=== PATIENT | male | born 1960 | race Caucasian/White ===

== ENCOUNTER 2024-03-08 11:59 | Outpatient (REF) | payer MEDICAID, SELFPAY ==
[2024-03-08 14:10] LABS: MANUAL DIFF FLAG NO
[2024-03-08 14:14] LABS: Basophils Absolute Auto 0.1 X10*3/uL (0.0-0.2); Basophils Percent Auto 0.9 % (0-2); Eosinophils Absolute Auto 0.1 X10*3/uL (0.0-0.4); Eosinophils Percent Auto 1.2 % (0-4); Hematocrit 46.2 % (42.0-52.0); Hemoglobin 16.4 g/dl (14.0-18.0); Imm Gran Abs Auto 0.02 X10*3/uL (0.00-0.03); Imm Gran Pct Auto 0.2 % (0.0-0.4); Lymphocytes Absolute Auto 3.4 X10*3/uL (1.2-4.9); Lymphocytes Percent Auto 35.1 % (20-40); Mean Corpuscular HGB Conc 35.5 g/dl (31.0-36.0); Mean Corpuscular Hemoglobin 33.4 pg (27.0-33.0); Mean Corpuscular Volume 94.1 fL (80.0-98.0); Mean Platelet Volume 10.4 fL (9.4-12.4); Monocytes Absolute Auto 0.8 X10*3/uL (0.1-1.2); Monocytes Percent Auto 8.4 % (2-11); Neutrophils Absolute Auto 5.2 x10*3/uL (2.0-8.3); Neutrophils Percent Auto 54.2 % (45-73); Platelet Count 257 X10*3/uL (160-400); Red Blood Count 4.91 X10*6/uL (4.60-5.80); Red Cell Distribution Width 12.7 % (11.0-16.0); White Blood Count 9.6 X10*3/uL (4.8-10.8)
[2024-03-08 14:29] LABS: Alanine Aminotransferase 45 U/L (0-40); Albumin Level 4.3 g/dL (3.5-5.0); Alkaline Phosphatase 80 U/L (39-117); Anion Gap 14 (12-20); Aspartate Amino Transferase 31 U/L (5-37); Bilirubin Total 0.7 mg/dL (0.0-1.0); Blood Urea Nitrogen 9 mg/dL (9-16); Calcium 9.5 mg/dL (8.4-10.2); Carbon Dioxide 27 mmol/L (22-29); Chloride 103 mmol/L (96-108); Estimated Glomerular Filt Rate > 60; Glucose Random 114 mg/dL (60-115); Iron 118 mcg/dL (45-160); Percent Iron Saturation 33 % (15-50); Sodium 140 mmol/L (135-145); Total Iron Binding Capacity 358 mcg/dL (228-428); Total Protein 7.4 g/dL (6.5-8.0); Unsaturated Iron Binding 240 ug/dL
[2024-03-08 15:04] LABS: Folate 9.6 ng/mL (> or = 4.0); Vitamin B12 252 pg/mL (200-900)
== END 2024-03-08 12:00 | disposition home or self-care (01) ==
LOC: HO.CHCLDS 11:59
PROVIDERS: Visit Provider Internal Medicine
DX: I10 Essential (primary) hypertension (principal)
CPT/HCPCS: 36415; 80053; 82607; 82746; 83540; 83735; 84100; 85025

== ENCOUNTER 2024-08-05 11:34 | Outpatient (REF) | payer MEDICAID, SELFPAY ==
[2024-08-05 14:00] LABS: MANUAL DIFF FLAG NO
[2024-08-05 14:12] LABS: Basophils Absolute Auto 0.1 X10*3/uL (0.0-0.2); Basophils Percent Auto 0.8 % (0-2); Eosinophils Absolute Auto 0.1 X10*3/uL (0.0-0.4); Hematocrit 45.9 % (42.0-52.0); Hemoglobin 15.7 g/dl (14.0-18.0); Imm Gran Abs Auto 0.04 X10*3/uL (0.00-0.03); Imm Gran Pct Auto 0.5 % (0.0-0.4); Lymphocytes Absolute Auto 2.5 X10*3/uL (1.2-4.9); Lymphocytes Percent Auto 28.7 % (20-40); Mean Corpuscular HGB Conc 34.2 g/dl (31.0-36.0); Mean Corpuscular Hemoglobin 31.6 pg (27.0-33.0); Mean Corpuscular Volume 92.4 fL (80.0-98.0); Mean Platelet Volume 10.2 fL (9.4-12.4); Monocytes Absolute Auto 0.7 X10*3/uL (0.1-1.2); Monocytes Percent Auto 7.5 % (2-11); Neutrophils Absolute Auto 5.4 x10*3/uL (2.0-8.3); Neutrophils Percent Auto 61.5 % (45-73); Platelet Count 275 X10*3/uL (160-400); Red Blood Count 4.97 X10*6/uL (4.60-5.80); Red Cell Distribution Width 13.4 % (11.0-16.0); White Blood Count 8.8 X10*3/uL (4.8-10.8)
[2024-08-05 14:21] LABS: Cholesterol 225 mg/dL (<200); HDL Cholesterol 53 mg/dL (>40); LDL Cholesterol Calculated 148 mg/dL (<100); Triglycerides 122 mg/dL (<150)
[2024-08-05 14:42] LABS: HIV AB/AG Nonreactive (Nonreactive); HIV Num 1 0.06 S/CO (0.00-0.99)
== END 2024-08-05 11:35 | disposition home or self-care (01) ==
LOC: HO.CHCLDS 11:34
PROVIDERS: Visit Provider Internal Medicine
DX: I10 Essential (primary) hypertension (principal)
CPT/HCPCS: 36415; 80061; 85025; 87389

== ENCOUNTER 2024-10-13 11:12 | Outpatient (REF) | payer MEDICAID, SELFPAY ==
--- OUTSIDE RECORDS SUMMARY | 2024-10-13 13:10 | XMS_ITS | Encounter Summary ---
Author Organization [facility] Address [address] [place] [address] Care Team Providers Care Dolly Pusher Name Role Phone Kathy Farley MD Primary Care Provider [phone] Ilana Hough RN Unavailable [phone] Ilana Hough RN Unavailable [phone] Reason for Visit * Reason Comments Med Refill Encounter Details Date Type Department Care Team (Late Contact Info) Description 12/17/2022 Refill [facility] [address] [place] [address] Kathy Farley MD [address] [place], [place] [phone] Alcohol abuse, uncomplicated Social History Tobacco Use Types Packs/Day Years Used Date Smoking Tobacco: Never Assessed Sex and Gender Information Value Date Recorded Sex Assigned at Male 06/03/2022 10:33 AM EDT Legal Sex Male 10:33 AM EDT Gender Identity Male 06/03/2022 10:33 AM EDT Sexual Orientation Straight 06/03/2022 10 :33 AM EDT documented as of this encounter Plan of Treatment Upcoming Encounters Date Type Department Care Team (Late Contact Info) Description 01/19/2025 9:45 AM EDT Office Visit [facility] MED & PEDS [address] [place], [place] [phone] Kathy Farley MD [address] [place] [address] documented as of this encounter Visit Diagnoses Diagnosis Alcohol abuse, uncomplicated documented in this encounter Care Teams Dolly Pusher Relationship Specialty Start Date End Date Kathy Farley MD [address] [place] [address] PCP - General Internal Medicine 01/01/18 Ilana Hough RN [address] [place] [address] [employer]isher[employer] Administrative Assistant 05/04/24 09/01/24 Ilana Hough RN [address] [place] [address] [employer]isher[employer] Administrative Assistant 09/07/24 [facility] 09/18/22 documented as of this encounter
--- OUTSIDE RECORDS SUMMARY | 2024-10-13 13:10 | XMS_ITS | Clinical Summary ---
Author Organization [facility] Address [address] [place] [address] Phone Care Team Providers Care Lehr Stripper Name Role Phone Kathy Farley MD Primary Care Provider [phone] Surgical History Surgery Date Site/Laterality Comments HAND SURGERY Right PROCEDURE: HISTORICAL HAND SURGERY; COMMENT: 3 times KNEE ARTHROSCOPY 01/14/2022 Left PROCEDURE: PA ARTHROSCOPY AID TX SPINE&/FX KNEE W/O FIXJ; COMMENT: Bone spur removal from the medial femoral epicondyle and MCL repair with Dr. Pierre Medical History Medical History Date Comments Depressive disorder DX:Depressiv e disorder Arthritis DX:Arthritis Anxiety state DX:Anxiety state Essential hypertension DX:Essent ial hypertension Hyperlipidemia DX:Hyperlipidemi a Social History Tobacco Use Types Packs/Day Years Used Date Smoking Tobacco: Some Days Smokeless Tobacco: Never Alcohol Use Standard Drinks/Week Comments Yes 0 (1 standard drink = 0.6 oz pur e alcohol) Sex and Gender Information Value Date Recorded Sex Assigned at Not on file Legal Sex Male 2:16 AM EST Gender Identity Not on file Sexual Orientation Not on file Obstetrics History Last Filed Vital Signs Vital Sign Reading Time Taken Comments Blood Pressure 140/78 07/23/2023 10:17 AM EST Pulse 88 12/28/2021 9:49 AM EDT Temperature - - Respiratory Rate - - Oxygen Saturation - - Inhaled Oxygen Concentration - - Weight 65.8 kg (145 lb) 04/06/2024 10:22 AM EDT Height 162.6 cm (5' 4 ) 04/06/2024 10:22 AM EDT Body Mass Index 24.89 04/06/2024 10:22 AM EDT Plan of Treatment Health Maintenance Due Date Last Done Comments Hepatitis A Vaccines (1 of 2 - Risk 2-dose series) 1980 Pneumococcal Vaccine: 50+ Years (2 of 2 - PCV) 07/20/2013 07/20/2012 Pneumococcal Vaccine: Pediatrics (0 to 5 Years) and At-Risk Patients (6 to 64 Years) (2 of 2 - PCV) 07/20/2013 07/20/2012 RSV Immunization Patients 60+ Years Old (1 - Risk 60-74 years 1-dose series) 2021 Cholesterol Screening (Lipid Panel) 07/07/2022 Colorectal Cancer Screening: Colonoscopy 07/07/2022 Depression Screening 07/07/2022 HIV Screening 07/07/2022 Hepatitis C Screening 07/07/2022 Lung Cancer Screening (Low Dose CT) 07/07/2022 Social Influencers of Health Screening 07/07/2022 Hypertension/CHF/CAD Annual BMP Blood Test 09/02/2023 COVID-19 Vaccine ( season) 2024 05/29/2023, 07/23/2022, 06/26/2021, Additional history exists Influenza Vaccine (#1) 2024 9, 07/03/2017, 06/26/2015, Additional history exists DTaP,Tdap,and Td Vaccines (5 - Td or Tdap) 12/14/2029 12/15/2019, 06/03/2019, 09/23/2014, Additional history exists Hepatitis B Vaccines Completed 01/21/2017, 08/20/2016, 07/18/2016 Zoster Vaccines Completed 09/02/2019, 06/30/2019 HIB Vaccines Aged Out No longer eligi ble based on patient's age to complete this topic HPV Vaccines Aged Out No longer eligi ble based on patient's age to complete this topic IPV Vaccines Aged Out No longer eligi ble based on patient's age to complete this topic MMR Vaccines Aged Out No longer eligi ble based on patient's age to complete this topic Meningococcal ACWY Vaccine Aged Out N o longer eligible based on patient's age to complete this topic Meningococcal B Vacine Aged Out No lo nger eligible based on patient's age to complete this topic RSV Immunization Patients Under 20 months Aged Out No longer eligible based on patient's age to complete this topic Varicella Vaccines Aged Out No longer eligible based on patient's age to complete this topic Insurance MEDICAID - [place] Care Teams Lehr Stripper Relationship Specialty Start Date End Date Kathy Farley MD [address] [place] [address] PCP - General 10/04/22
--- OUTSIDE RECORDS SUMMARY | 2024-10-13 13:10 | XMS_ITS | Encounter Summary ---
Author Organization [employer] Address [address] [place] [address] Care Team Providers Care Vamp Seamer Name Role Phone Kathy Farley MD Primary Care Provider [phone] Ilana Hough RN Unavailable [phone] Ilana Hough RN Unavailable [phone] Encounter Details Date Type Department Care Team (Late st Contact Info) Description 05/03/2024 Orders Only [facility] CH[facility] MED & PEDS [address] [place] [address] ProviderErna MD Social History Tobacco Use Types Packs/Day Years Used Date Smoking Tobacco: Every Day Cigarettes 0.5 49.2 Started: 08/04/1975 Passive Smoke Exposure: Current Smokeless Tobacco: Never Housing Stability Answer Date Recorded What is your housing situation today? I have janettguy díaz 05/21/[address] you li ve. Do you have problems with any of the following? None of the above 05/21/2023 Food Insecurity Answer Date Recorded Within the past 12 months, y ou worried that your food would run out before you got money to buy more: Often true 02/25/2024 Within the past 12 months,th e food you bought just didn't last and you didn't have enough money to get more: Often true Transportation Answer Date Recorded In the past 12 months, has l ack of transportation kept you from medical appts, meetings, work or from getting things needed for daily living? No 05/21/2023 Utilities Answer Date Recorded In the past 12 months, has t he electric, gas, oil or water company threatened to shut off services in your home? No 05/21/2023 Depression Answer Date Recorded Patient Health Questionnaire-2 Score 0 01/22/2023 Internet Access Answer Date Recorded Internet Access Q1 Yes 04/05/2024 Internet Access Q2 Not on file 04/05/2024 Sex and Gender Information Value Date Recorded Sex Assigned at Male 06/03/2022 10:33 AM EDT Legal Sex Male 10:33 AM EDT Gender Identity Male 06/03/2022 10:33 AM EDT Sexual Orientation Straight 06/03/2022 10 :33 AM EDT documented as of this encounter Plan of Treatment Upcoming Encounters Date Type Department Care Team (Late st Contact Info) Description 01/19/2025 9:45 AM EDT Office Visit [facility] MED & PEDS [address] [place], [place] [phone] Kathy Farley MD [address] [place], [place] [phone] documented as of this encounter Procedures Procedure Name Priority Date/Time Associated Diagnosis Comments CT HEAD WO CONTRAST Routine 05/02/2024 1:[address] HEAD WO CONTRAST Routine 05/02/2024 1:35 PM EDT documented in this encounter Results * CT Head w/o Contrast (05/02/2024 1:37 PM EDT) Anatomical Region Laterality Modality Head, Neck Computed Tomogra phy Historical Provider MD VILLARREAL CT PROCEDURES Final R esult * CT Head w/o Contrast (05/02/2024 1:35 PM EDT) Anatomical Region Laterality Modality Head, Neck Computed Tomogra phy Historical Provider MD VILLARREAL CT PROCEDURES Final R esult documented in this encounter Visit Diagnoses Not on filedocumented in this encounter Care Teams Vamp Seamer Relationship Specialty Start Date End Date Kathy Farley MD [address] [place] [address] PCP - General Internal Medicine 01/01/18 Ilana Hough RN [address] [place] [address] Bulk Sealer OperatorTitle Checker 05/04/24 09/01/24 Ilana Hough RN [address] [facility] [place] [address] Bulk Sealer OperatorTitle Checker 09/07/24 [facility] 09/18/22 documented as of this encounter
--- OUTSIDE RECORDS SUMMARY | 2024-10-13 13:10 | XMS_ITS | Clinical Summary ---
Author Organization [employer] Address [address] [facility] [address] [place] [address] Care Team Providers Care Transport Manager Name Role Phone Kathy Farley MD Primary Care Provider [phone] Ilana Hough RN Unavailable [phone] Allergies Active Allergy Reactions Criticality Noted Date Comments Latex 09/09/2022 Medications thiamine (Vitamin B-1) 100 MG tablet Take 1 tablet by mouth 1 (one) time each day. 022 Active cholecalciferol (Vitamin D-3) 50 MCG (1999 UT) tablet Take 1 tablet by mouth 1 (one) time each day. 022 Active sucralfate (Carafate) 1 GM/10ML suspension Take 10 mL by mouth every 6 (six) hours. On an empty stomach 1 hour before meals And at bedtime Active nicotine polacrilex (Nicorette) 4 MG gum chew 1 piece of gum by oral route every 4 hours as needed and as directed Active Nutritional Supplements (Ensure Nutrition Shake) liquid Take8 fluid oz 1-3 times day with meals or snacks. for weight loss Active aspirin 81 MG EC tablet Take 1 tablet by mouth 1 (one) time each day. 019 Active Blood Pressure kitIndications:Ess ential (primary) hypertension (I10) Take by on arm route as directed Active cyanocobalamin (Vitamin B-12) 100 MCG tabletIndications: History of alcohol abuse Take 1 tablet by mouth daily 90 tablet 1 022 Active capsicum (Arthritis Pain Relieving) 0.075 % topical creamIndications:A rthritis of carpometacarpal (CMC) joint of right thumb APPLY TO THE AFFECTED AREA EVERY 8 HOURS 57 g 1 023 Active busPIRone (Buspar) 15 MG tabletIndications: Anxiety TAKE 2 TABLETS BY MOUTH two (2) times a day 120 tablet 2 023 Active econazole nitrate 1 % creamIndications:R gregg, skin Apply topically every 12 (twelve) hours. To the affected and surrounding areas of skin 30 g 023 Active meloxicam (Mobic) 15 MG tablet Take 1 tablet (15 mg) by mouth Once per day. 30 tablet 11 024 2024 Active fluticasone (Flonase) 50 MCG/ACT nasal sprayIndications:S ubacute cough Administer 2 sprays into each nostril Once per day. Shake gently. Before first use, prime pump. After use, clean tip and replace cap. 16 g 2 Active Spacer/Aero-Holdin g Chambers (AeroChamber MV) inhalerIndications :Subacute cough Use as instructed 1 each 2 Active lisinopril-hydroCH LOROthiazide 20-12.5 MG tabletIndications: Hypertension, unspecified type TAKE 1 TABLET BY MOUTH ONCE DAILY IN THE MORNING 30 tablet 11 Active amLODIPine (Norvasc) 5 MG tablet Take 1 tablet by mouth in the morning. Active DULoxetine (Cymbalta) [address] capsule Take 1 capsule by mouth 2 times daily. Active acetaminophen (Tylenol Extra Strength) 500 MG tabletIndications: Sprain of right shoulder, unspecified shoulder sprain type, initial encounter Take 2 tablets (1,000 mg) by mouth every 6 (six) hours if needed for headaches. 30 tablet 024 2024 Active Diclofenac Sodium 1 % gelIndications:Acu te pain of right shoulder,Pain in left knee APPLY 2 grams TOPICALLY TO THE AFFECTED AREA two (2) times a day 100 g 5 024 Active nicotine (Nicoderm, Step 1) 21 MG/24HR patchIndications:S ubacute cough,Cigarette smoker PLACE 1 PATCH ON THE SKIN EVERY DAY AT THE SAME TIME 30 patch 1 024 Active magnesium 30 MG tabletIndications: Cramp in muscle,Weakness of left lower extremity Take 1 tablet (30 mg) by mouth 2 times daily. 60 tablet 1 025 2025 Active ezetimibe (Zetia) 10 MG tabletIndications: Hypercholesterolem ia Take 1 tablet (10 mg) by mouth Once per day. 30 tablet 11 025 2025 Active lidocaine (Lidoderm) 5 % patchIndications:D orsalgia, unspecified APPLY 1 PATCH TOPICALLY ONCE DAILY. REMOVE AND discard PATCH WITHIN 12 HOURS OR DIRECTED BY MD 30 patch 5 025 Active celecoxib (CeleBREX) 200 MG capsuleIndications :Laceration of left leg excluding thigh, with complication, initial encounter,Arthriti s of carpometacarpal (CMC) joint of right thumb TAKE 1 CAPSULE BY MOUTH EVERY TWELVE HOURS 60 capsule 5 025 Active gabapentin (Neurontin) 600 MG tabletIndications: Muscle cramps,Chronic low back pain, unspecified back pain laterality, unspecified whether sciatica present TAKE 1 TABLET BY MOUTH EVERY 8 HOURS 90 tablet 025 Active atorvastatin (Lipitor) 40 MG tabletIndications: Hypercholesterolem ia TAKE 1 TABLET BY MOUTH ONCE DAILY 90 tablet 025 Active albuterol 108 (90 Base) MCG/ACT inhalerIndications :Subacute cough Inhale 2 puffs every 6 (six) hours if needed for wheezing. 18 g 2 025 2024 Active tiZANidine (Zanaflex) 4 MG tabletIndications: Muscle cramps Take 1 tablet (4 mg) by mouth every 6 (six) hours if needed for muscle spasms for up to 10 days. 30 tablet 025 Active pantoprazole (ProtoNix) 40 MG EC tablet TAKE 1 TABLET BY MOUTH ONCE DAILY 30 tablet 2 025 Active prazosin (Minipress) 2 MG capsuleIndications :Major depressive disorder, single episode, unspecified TAKE TWO CAPSULES BY MOUTH AT BEDTIME 60 capsule 2 025 Active folic acid (Folvite) 1 MG tabletIndications: History of alcohol abuse Take 1 tablet by mouth once daily 90 tablet 1 025 Active atorvastatin (Lipitor) 40 MG tabletIndications: Hypercholesterolem ia TAKE 1 TABLET BY MOUTH ONCE DAILY 90 tablet 1 024 2024 Discontinued folic acid (Folvite) 1 MG tabletIndications: History of alcohol abuse TAKE 1 TABLET BY MOUTH ONCE DAILY 90 tablet 1 024 2024 Discontinued albuterol 108 (90 Base) MCG/ACT inhalerIndications :Subacute cough Inhale 2 puffs every 6 (six) hours if needed for wheezing. 18 g 2 024 2024 Discontinued(R eorder (will not trigger notification to Pharmacy)) prazosin (Minipress) 2 MG capsuleIndications :Major depressive disorder, single episode, unspecified TAKE TWO CAPSULES BY MOUTH AT BEDTIME 60 capsule 2 024 2024 Discontinued pantoprazole (ProtoNix) 40 MG EC tablet TAKE 1 TABLET BY MOUTH ONCE DAILY 30 tablet 2 024 2024 Discontinued tiZANidine (Zanaflex) 4 MG tabletIndications: Muscle cramps Take 1 tablet (4 mg) by mouth every 6 (six) hours if needed for muscle spasms for up to 10 days. 30 tablet 025 2024 Discontinued(R eorder (will not trigger notification to Pharmacy)) folic acid (Folvite) 1 MG tabletIndications: History of alcohol abuse TAKE 1 TABLET BY MOUTH ONCE DAILY 90 tablet 1 025 2024 Discontinued(R eorder (will not trigger notification to Pharmacy)) pantoprazole (ProtoNix) 40 MG EC tablet TAKE 1 TABLET BY MOUTH ONCE DAILY 30 tablet 2 025 2024 Discontinued(R eorder (will not trigger notification to Pharmacy)) prazosin (Minipress) 2 MG capsuleIndications :Major depressive disorder, single episode, unspecified TAKE TWO CAPSULES BY MOUTH AT BEDTIME 60 capsule 2 025 2024 Discontinued(R eorder (will not trigger notification to Pharmacy)) Active Problems Problem Noted Date Diagnosed Date Subacute cough 01/20/2024 Assessment & Plan (01/20/2024 11:29 AM EDT): -POCT COVID, Flu, Strep negative today -will trial flonase and albuterol inhaler -referral to pulmonary placed for further work-up -low threshold for TB in the absence of other physiological based on symptom report -reported chest pain most likely due to excessive coughing -advised to call ENT and ask for expedited visit -will send to [facility] for lung screening Cigarette smoker 11/15/2023 Overview (12/09/2023): Previous History: -Cigg/day: 10 -Age started: 16 y/o -Total years smokin (quit for 10 years) -Pack year history: ~18.5 Quit date: 11/27/23 -Congratulated on smoking cessation progress -Cont varenicline, reviewed med use and SE 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 ee 01/15/2023 Chronic back pain 07/17/2022 Assessment & Plan (12/09/2023 6:35 PM EDT): Refill gabapentin Hypercholesterolemia 07/17/2022 Hypertensive disorder 07/17/2022 Assessment & Plan (01/20/2024 10:43 AM EDT): -advised to take BP medications when he gets home -continue to monitor home BP readings and advised to have the RN report any high readings -ED precautions reviewed Assessment & Plan (12/09/2023 6:35 PM EDT): BP well controlled in office, cont management through PCP Check BMP Mixed anxiety and depressive disorder 07/17/2022 Reflux gastritis 07/17/2022 Depression 12/07/2019 Low vitamin D level 05/31/2018 Anxiety 01/01/2018 Encounters Date Type Department Care Team Description 10/13/2024 10:30 AM EDT Office Visit [facility] [address] [place] [address] Kathy Farley MD Primary hypertension (Primary Dx); Subacromial impingement of right shoulder; Tendinosis of right rotator cuff; Other urinary incontinence 10/13/2024 Travel 10/12/2024 Telephone [facility] [address] [place] [phone] Kathy Farley MD Care Management (C3CM- f/u call) 10/12/2024 Patient Outreach [facility] [address] [place] [phone] Kathy Farley MD Care Coordination (Appt reminders) 10/11/2024 Telephone [facility] [address] [place] [phone] Kathy Farley MD Care Management (C3CM- f/u call) 10/08/[address] [phone] Kathy Farley MD Care Management (C3CM- f/u call) 10/06/2024 Patient Outreach [facility] [address] [place] [phone] Kathy Farley MD Pre-visit Planning (SDOH positive, Tobacco screening negative. ) 10/05/2024 Patient Outreach [facility] [address] [place] [phone] Kathy Farley MD Care Coordination (PT1) 10/01/2024 Patient Outreach [facility] [address] [place] [phone] Kathy Farley MD Care Coordination (Appt reminder) 09/28/2024 Patient Outreach [facility] [address] [place] [phone] Kathy Farley MD Care Coordination (PT1) 09/27/[address] [phone] Kathy Farley MD Care Management (C3CM- f/u call) 09/24/2024 Refill [facility] [address] [place] [phone] Kathy Farley MD Subacute cough; Muscle cramps; Major depressive disorder, single episode, unspecified; History of alcohol abuse 09/24/[address] [phone] Kathy Farley MD Call Back Request 09/24/2024 Refill [facility] [address] [place] [phone] Kathy Farley MD Hypercholesterolemia 09/24/2024 Refill [facility] [address] [place] [phone] Kathy Farley MD History of alcohol abuse; Major depressive disorder, single episode, unspecified 09/21/2024 Patient Outreach [facility] [address] [place] [address] Kathy Farley MD Care Coordination (Appt reminder) 09/17/2024 Telephone [facility] [address] [place] [phone] Kathy Farley MD Care Management ([facility]- f/u call lvm) 09/17/2024 Patient Outreach [facility] [address] [place] [phone] Kathy Farley MD Care Coordination (SDOH/appt reminder) 09/16/2024 Patient Outreach [facility] [address] [place] [phone] Kathy Farley MD Care Coordination (Appt reminder) 09/16/2024 Patient Outreach [facility] [address] [place] [address] Kathy Farley MD Care Coordination (Appt change) 09/15/[address] [phone] Kathy Farley MD 09/10/2024 Refill [facility] [address] [place] [address] Kathy Farley MD Muscle cramps; Chronic low back pain, unspecified back pain laterality, unspecified whether sciatica present 09/07/2024 Telephone [facility] [address] [place] [phone] Ilana Hough, RN Care Management (C3- initial assessment/ enrollment) 09/07/2024 Patient Outreach [facility] [address] [place] [address] Kathy Farley MD Care Coordination (CM/CHW outreach) 09/06/[address] [phone] Kathy Farley MD Nurse Triage 09/03/[address] [address] Ilana Hough RN 09/02/2024 Refill [facility] [address] [place] [address] Kathy Farley MD Chronic pain of left knee 09/02/2024 Patient Outreach [facility] [address] [place] [address] Kathy Farley MD Care Coordination (SDOH) 09/02/[address] [phone] Ialna Hough RN Care Management (C3CM- f/u call) 08/31/2024 1:00 PM EST Office Visit [facility] [address] [place] [address] Juan, Tamara, OD Presbyopia (Primary Dx) 08/31/2024 Patient Outreach [facility] [address] [place] [address] Kathy Farley MD Care Coordination (Appt reminder) 08/27/2024 Patient Outreach [facility] [address] [place] [address] Kathy Farley MD Care Coordination (PT1) 08/20/2024 Patient Outreach [facility] [address] [place] [address] Kathy James MD Care Coordination (Appt reminder) 08/19/[address] [address] Ilana Hough, DUNG Care Management (C3CM- f/u call) 08/18/2024 Refill [facility] [address] [place] [address] Kathy Farley MD Dorsalgia, unspecified; Laceration of left leg excluding thigh, with complication, initial encounter; Arthritis of carpometacarpal (CMC) joint of right thumb 08/17/[address] [phone] Ilana Hough, RN Care Management (C3- appt reminder) 08/16/2024 Refill [facility] [address] [place] [phone] Kathy Farley MD Muscle cramps; Pain of left calf 08/13/2024 1:40 PM EST Telemedicine [facility] [address] [place] [address] Kathy Farley MD Muscle cramps (Primary Dx); Pain of left calf; Acute cough 08/13/2024 Travel 08/12/2024 Telephone [facility] [address] [place] [address] Kathy Farley MD Nurse Triage 08/06/2024 Telephone [facility] [address] [place] [address] Anastasiya Mcclendon, RN Results 08/06/2024 Orders Only [facility] [address] [place] [address] Kathy Farley MD Hypercholesterolemia (Primary Dx) 08/05/2024 11:00 AM EST Office Visit [facility] [address] [place] [address] Kathy Farley MD Cramp in muscle (Primary Dx); Abnormal gait; Weakness of left lower extremity 08/05/2024 Refill [facility] [address] [place] [address] Kathy Farley MD Chronic pain of left knee 08/05/2024 Refill [facility] [address] [place] [address] Ashley Cui MD Muscle cramps; Chronic low back pain, unspecified back pain laterality, unspecified whether sciatica present 08/05/2024 Travel 08/02/2024 Telephone [facility] [address] [place] [address] Ilana Hough RN 07/30/2024 Telephone [facility] [address] [place] [phone] Kathy Farley MD Nurse Triage 07/27/2024 Outside Procedure [facility] [address] [place] [address] Tamara Martinez, OD Presbyopia (Primary Dx) 07/26/2024 Telephone [facility] [address] [place] [phone] Ilana Hough, DUNG Care Management (C3CM- f/u call) 07/23/2024 9:00 AM EST Office Visit [facility] [address] [place] [address] Tamara Martinez, OD Myopia of both eyes (Primary Dx) 07/23/2024 Travel 07/22/2024 Patient Outreach [facility] [address] [place] [address] Kathy Farley MD Care Coordination (Appt reminder) 07/20/2024 Patient Outreach [facility] [address] [place] [address] Kathy Farley MD Care Coordination (PT1) 07/20/2024 Patient Outreach [facility] [address] [place] [address] Kathy Farley MD Care Coordination (Appt reminder) 07/15/2024 Refill [facility] [address] [place] [address] Kathy Farley MD Muscle cramps; Chronic low back pain, unspecified back pain laterality, unspecified whether sciatica present; Chronic pain of left knee from Last 3 Months Immunizations Name Administration Dates Next Due Hep B, adult 01/21/2017,08/20/2016,07/18/2016 INFLUENZA INJECTABLE QUADRIV ALANT CCIIV4 MDCK Multi-dose vial 06/30/2019 Influenza, IIV3, injectable 07/03/2017,1 08/26/2014,05/05/2014,04/22 Moderna Covid-19 Vaccine 12+ 11/24/2020,10/28/19 21 Moderna Covid-19 Vaccine 6+ Bivalent 07/23/2022 Pneumococcal Polysaccharide PPSV23 07/20/2012 Rabies, IM Diploid Cell Culture 01/04/20 20,12/28/2019,12/24/2019,12/14 Tdap 12/15/2019, 9,09/23/2014,04/14 Zoster, Recombinant 09/02/2019,06/30/2019 Social History Tobacco Use Types Packs/Day Years Used Date Smoking Tobacco: Every Day Cigarettes 0.5 49.2 Started: 08/04/1975 Passive Smoke Exposure: Current Smokeless Tobacco: Never Tobacco Cessation:Ready to Q uit: Yes; Counseling Given: Yes Depression Answer Date Recorded Patient Health Questionnaire-9 Score 0 10/13/2024 Patient Health Questionnaire-9 Score 0 10/13/2024 Last PHQ-9: Questionnaire Data Not on file 0 10/13/2024 Housing Stability Answer Date Recorded What is your housing situation today? I have janettguy díaz 05/21/[address] you li ve. Do you have problems with any of the following? None of the above 05/21/2023 Food Insecurity Answer Date Recorded Within the past 12 months, y ou worried that your food would run out before you got money to buy more: Never True 05/10/2024 Within the past 12 months,th e food you bought just didn't last and you didn't have enough money to get more: Never True 02/2024 Transportation Answer Date Recorded In the past 12 months, has l ack of transportation kept you from medical appts, meetings, work or from getting things needed for daily living? Yes, it has kept me from medical appointments or getting medications. 05/10/2024 Utilities Answer Date Recorded In the past 12 months, has t he electric, gas, oil or water company threatened to shut off services in your home? No 05/21/2023 Depression Answer Date Recorded Patient Health Questionnaire-2 Score 0 10/13/2024 Internet Access Answer Date Recorded Internet Access Q1 Yes 04/05/2024 Internet Access Q2 Not on file 04/05/2024 Sex and Gender Information Value Date Recorded Sex Assigned at Male 06/03/2022 10:33 AM EDT Legal Sex Male 10:33 AM EDT Gender Identity Male 06/03/2022 10:33 AM EDT Sexual Orientation Straight 06/03/2022 10 :33 AM EDT Last Filed Vital Signs Vital Sign Reading Time Taken Comments Blood Pressure 124/78 10/13/2024 9:59 AM EDT Pulse 78 10/13/2024 9:59 AM EDT Temperature 37.1 ??C (98.7 ??F) 10/13/2024 9:59 AM ED T Respiratory Rate 18 10/13/2024 9:59 AM EDT Oxygen Saturation 98% 10/13/2024 9:59 AM EDT Inhaled Oxygen Concentration - - Weight 67 kg (147 lb 9.6 oz) 10/13/2024 9:59 AM EDT Height 162.6 cm (5' 4 ) 10/13/2024 9:59 AM EDT Body Mass Index 25.34 10/13/2024 9:59 AM EDT Plan of Treatment Upcoming Encounters Date Type Department Care Team ([facility] st Contact Info) Description 01/19/2025 9:45 AM EDT Office Visit [facility] [address] [place] [address] Kathy Farley MD [address] [place] [address] Health Maintenance Due Date Last Done Comments CT Colonography 1961 Colonoscopy 1961 Colorectal Cancer Screening 1961 FIT DNA/Cologuard 1961 FIT 1961 FOBT 1961 Sigmoidoscopy 1961 Hepatitis A Vaccines (1 of 2 - Risk 2-dose series) 1980 Lung Cancer Screening 2011 Pneumococcal Vaccine: 50+ Years (2 of 2 - PCV) 07/20/2013 07/20/2012 RSV Patients and Patients Aged 60 years or older (1 - Risk 60-74 years 1-dose series) 2021 Influenza Vaccine (#1) 2025 9, 07/03/2017, 06/26/2015, Additional history exists Postponed from 04/04/2024 (Patient Refused) COVID-19 Vaccine (2023- season) 2025 05/29/2023, 07/23/2022, 06/26/2021, Additional history exists Postponed from 04/04/2024 (Patient Refused) SDOH Screening 10/06/2025 10/06/2024 Alcohol/Substance Use Screening 10/13/2025 10/13/2024 Depression Screening 10/13/2025 10/13/2024, 10/14/19 Tobacco Screening 10/13/2025 10/13/2024 Lipid Panel 08/05/2029 08/05/2024 DTaP/Tdap/Td Vaccines (5 - Td or Tdap) 12/14/2029 12/15/2019, 06/03/2019, 09/23/2014, Additional history exists Hepatitis B Vaccines Completed 01/21/2017, 08/20/2016, 07/18/2016 Zoster Vaccines Completed 09/02/2019, 06/30/2019 HIV Screening Completed 08/05/2024 HIB Vaccines Aged Out No longer eligi ble based on patient's age to complete this topic HPV Vaccines Aged Out No longer eligi ble based on patient's age to complete this topic IPV Vaccines Aged Out No longer eligi ble based on patient's age to complete this topic Meningococcal Vaccine Aged Out No angella veto eligible based on patient's age to complete this topic RSV under 20 months Aged Out No longe r eligible based on patient's age to complete this topic Rotavirus Vaccines Aged Out No longer eligible based on patient's age to complete this topic Procedures Procedure Name Priority Date/Time Associated Diagnosis Comments LIPID PANEL, STANDARD Routine 08/05/2024 1:55 PM EST Hypertension, unspecified type CBC WITH AUTO DIFFERENTIAL Routine 08/05/2024 11:35 AM EST Hypertension, unspecified type HIV 1/2 ANTIGEN/ANTIBODY, FOURTH GENERATION W/RFL Routine 08/05/2024 11:35 AM EST Hypertension, unspecified type from Last 3 Months Results * (ABNORMAL) Lipid Panel, Standard (08/05/2024 1:55 PM EST) Triglycerides 122 <150 mg/dL [facility] Comment:Desirable Triglyceri de: less than 150 mg/dLBorderline High Triglyceride 150-199 mg/dLHigh Triglyceride: 200-499 mg/dLVery High Triglyceride: greater than or equal to 5OO mg/dL Cholesterol 225(H) <200 mg/dL [facility] Comment:Desirable Cholestero l: less than 200 mg/dLBorderline High Cholesterol: 200-239 mg/dLHigh Cholesterol: greater than 239 mg/dL LDL Cholesterol Calculated 148(H) <100 mg/dL [facility] Comment:Desirable LDL: less than 100 mg/dLNear Optimal/Above Optimal LDL: 110- 129 mg/dLBorderline High LDL: 130-159 mg/dLHigh LDL: 160-189 mg/dLVery High LDL: greater than or equal to 190 mg/dL HDL Cholesterol 53 >40 mg/dL [facility] Comment:Desirable HDL: great er than 40 mg/dL Note: This HDL assay may give artificially low results in patients with liver disease. Blood Venous blood specimen / Unknown 08/05/2024 1:55 PM EST 08/05/2024 1:57 PM EST us Kathy Farley MD LAB BLOOD ORDERABLES Final Result [facility] [address] [place] [phone] * (ABNORMAL) CBC auto differential (08/05/2024 11:35 AM EST) White Blood Count 8.8 4.8 - 10.8 X10*3/uL [facility] Red Blood Count 4.97 4.60 - 5.80 X10*6/uL [facility] Hemoglobin 15.7 14.0 - 18.0 g/dl [facility] Hematocrit 45.9 42.0 - 52.0 % [facility] Mean Corpuscular Volume 92.4 80.0 - 98.0 fL [facility] Mean Corpuscular Hemoglobin 31.6 27.0 - 33.0 pg [facility] Mean Corpuscular HGB Conc 34.2 31.0 - 36.0 g/dl [facility] Red Cell Distribution Width 13.4 11.0 - 16.0 % [facility] Platelet Count 275 160 - 400 X10*3/uL [facility] Mean Platelet Volume 10.2 9.4 - 12.4 [facility] Neutrophils Percent Auto 61.5 45 - 73 % [facility] Imm Gran Pct Auto 0.5(H) 0.0 - 0.4 % [facility] Lymphocytes Percent Auto 28.7 20 - 40 % [facility] Monocytes Percent Auto 7.5 2 - 11 % [facility] Eosinophils Percent Auto 1.0 0 - 4 % [facility] Basophils Percent Auto 0.8 0 - 2 % [facility] NRBC Pct Auto 0.0 0.0 - 0.2 /100WBC [facility] Neutrophils Absolute Auto 5.4 2.0 - 8.3 x10*3/uL [facility] Imm Gran Abs Auto 0.04(H) 0.00 - 0.03 X10*3/uL [facility] Lymphocytes Absolute Auto 2.5 1.2 - 4.9 X10*3/uL [facility] Monocytes Absolute Auto 0.7 0.1 - 1.2 X10*3/uL [facility] Eosinophils Absolute Auto 0.1 0.0 - 0.4 X10*3/uL [facility] Basophils Absolute Auto 0.1 0.0 - 0.2 X10*3/uL [facility] NRBC Abs Auto 0.000 0.0 - 0.012 X10*3/uL [facility] Blood Venous blood specimen / Unknown 08/05/2024 11:35 AM EST 08/05/2024 1:57 PM EST Kathy Farley MD LAB BLOOD ORDERABLES Final Result Performing Organization Address City/[facility]/ZIP Co de Phone Number [facility] [address] [place] [address] [phone] * HIV-1/2 Antigen and Antibodies, Fourth Generation, with Reflexes (08/05/2024 11:35 AM EST) HIV AB/AG Nonreactive Nonreactive [facility] Comment:HIV-1 p24 Ag and/or HIV-1/HIV-2 Ab not detected.A test result that is nonreactive does not exclude thepossibility of exposure to or infection with HIV-1 and/orHIV-2. Nonreactive results in this assay for individualswith prior exposure to HIV-1 and/or HIV-2 may be due toantigen and antibody levels that are below the limit ofdetection of this assay.The [employer] HIV Ag/Ab Combo assay result andsupplemental assay results should be interpreted inconjunction with the patient's clinical presentation,history and other laboratory results. If the results areinconsistent with clinical evidence, additional testing issuggested to confirm the result. Blood Venous blood specimen / Unknown 08/05/2024 11:35 AM EST 08/05/2024 1:57 PM EST us Kathy Farley MD LAB BLOOD ORDERABLES Final Result Performing Organization Address [facility] Co de Phone Number [facility] [address] [place] [address] [phone] from Last 3 Months Insurance [facility] C3 Care Teams Transport Manager Relationship Specialty Start Date End Date Kathy Farley MD [address] [place] [address] PCP - General Internal Medicine 01/01/18 Ilana Hough RN [address] [place] [address] Animal RehabilitatorCandy Supervisor 09/07/24 [facility] 09/18/22
--- OUTSIDE RECORDS SUMMARY | 2024-10-13 13:10 | XMS_ITS | Data Portability ---
Author Organization [place] - [facility], Allergy Address [address] [facility] [address] [place] [address] Assessment Encounter Date Assessment Date Assessment LastModified by Organization Details LastModified Time 04/16/2024 04/16/2024 63 year old male presents to the office today reporting throat irritation for the past 2-3 months and dry cough that primarily bothers him in the middle of the night. He has GERD and is on Protonix. He has allergies and is on Zyrtec. We discussed that Lisinopril can cause dry cough. FOL demonstrated no masses and changes consistent with reflux. I have recommended that he focus on better control of his reflux. We discussed not eating close to bedtime and having the head of bed elevated as well as avoidance of acidic foods such as tomato, peppermint, and lemon. We discussed avoidance of alcohol close to bedtime. He will follow up on an as needed basis. FOL was performed with Dr. Hollis. [email or web address] Not available 04/16/2024 10:52:37 Plan of Treatment Reminders Order Date Submit Date Provider Last Modified By Organization Details Last Modified Time Details Appointments None record ed. Lab None record ed. Referral None record ed. Procedures None record ed. Surgeries None record ed. Imaging None record ed. Medication Orders None record ed. Patient TargetsNo targets recorded. Patient InstructionsNo instructions recorded. Reason for Referral None Reported. Problems Name Problem SNOMED Code Status Onset Date Resolution Date Notes Provider Name and Address Organization Details Recorded Time Gastroesophage al reflux disease without esophagitis 872464797 Active 2023 ZOIE ROQUE PA-C [address] [facility], [place], [address] [place] - [facility] 09/13/202 4 10:30:59 Persistent cough 033862292 Active 2023 ZOIE ROQUE PA-C [address] [facility], [place], [address], [facility] 4 10:31:13 Feeling of lump in throat 650729196 Active 2023 ZOIE ROQUE PA-C [address] [facility],[address] [address], [place], [address], [facility] [place] 4 10:31:29 Essential hypertension 06503498 Active 2023 ZOIE ROQUE PA-C [address] [facility],[address] [address], [place], [address], [facility] 4 10:31:58 Allergic rhinitis 40082212 Active 2023 ZOIE ROQUE PA-C [address] [facility],[address] [address], [place], [address], [facility] 4 10:32:13 Problem Notes None recorded. Procedures Surgical History Date Name Laterality Status Provider Name and Address Organization Details Recorded Time 04/16/2024 FOL_Reflux _JMS completed ZOIE ROQUE PA-C [address] [address], [place], [address], [facility] 04/16/2024 10:49:36 Imaging Results None recorded. Procedure Notes None recorded. Medical Equipment None Reported. Allergies No known drug allergies Medications Name Sig Start Date Stop Date Status Note LastModified by Organization Details LastModified Time celecoxib 200 mg capsule TAKE 1 CAPSULE BY MOUTH EVERY TWELVE HOURS active Not Available Not Available No t Available cyclobenzap rine 10 mg tablet Take 1 tablet (10 mg) by mouth 3 times daily for 10 days. active Not Available Not Available No t Available atorvastati n 40 mg tablet TAKE 1 TABLET BY MOUTH ONCE DAILY active Not Available Not Available No t Available gabapentin 600 mg tablet TAKE 1 TABLET BY MOUTH EVERY 8 HOURS active Not Available Not Available No t Available cyanocobala min (vit B-12) 100 mcg tablet TAKE 1 TABLET BY MOUTH ONCE DAILY active Not Available Not Available No t Available cetirizine 10 mg tablet Take 1 tablet (10 mg) by mouth in the morning. active Not Available Not Available No t Available lisinopril 20 mg-hydrochl orothiazide 12.5 mg tablet TAKE 1 TABLET BY MOUTH ONCE DAILY IN THE MORNING active Not Available Not Available No t Available meloxicam 15 mg tablet TAKE 1 TABLET BY MOUTH ONCE DAILY active Not Available Not Available No t Available naltrexone 50 mg tablet TAKE 1 TABLET BY MOUTH ONCE DAILY NEEDED FOR cravings OF alcohol. discontin ue acamprosa te active Not Available Not Available No t Available prednisone 20 mg tablet TAKE 1 TABLET BY MOUTH ONCE DAILY FOR 5 DAYS 04/16 completed Not Available Not Available Not Available amlodipine 5 mg tablet TAKE 1 TABLET BY MOUTH ONCE DAILY IN THE MORNING active Not Available Not Available No t Available tramadol 50 mg tablet TAKE 1 TABLET BY MOUTH EVERY 6 HOURS NEEDED FOR SEVERE PAIN FOR UP TO 5 DAYS active Not Available Not Available No t Available quetiapine 100 mg tablet Take 1 tablet by mouth at bedtime as directed take at 930 pm active Not Available Not Available No t Available pantoprazol e 40 mg tablet,nirav yed release TAKE 1 TABLET BY MOUTH ONCE DAILY active Not Available Not Available No t Available lidocaine 5 % topical patch APPLY 1 PATCH TOPICALLY ONCE DAILY. REMOVE AND discard PATCH WITHIN 12 HOURS OR DIRECTED BY MD active Not Available Not Available No t Available folic acid 1 mg tablet TAKE 1 TABLET BY MOUTH ONCE DAILY active Not Available Not Available No t Available zolpidem 5 mg tablet TAKE 1 TABLET BY MOUTH ONCE DAILY AT BEDTIME DIRECTED. TAKE AT 10PM FOR SLEEP active Not Available Not Available No t Available methylpredn isolone 4 mg tablets in a dose pack take 6 tablets on day 1 as directed on package and decrease by 1 tab each day for a total of 6 days 04/16 completed Not Available Not Available Not Available fluticasone propionate 50 mcg/actuati on nasal spray,suspe nsion Administe r 2 sprays into each nostril Once per day. Shake gently. Before first use, prime pump. After use, clean tip and replace cap. active Not Available Not Available No t Available prazosin 2 mg capsule TAKE TWO CAPSULES BY MOUTH EVERY NIGHT AT BEDTIME active Not Available Not Available No t Available Ventolin HFA 90 mcg/actuati on aerosol inhaler INHALE 2 PUFFS BY MOUTH INTO THE lungs EVERY 6 HOURS NEEDED FOR WHEEZING active Not Available Not Available No t Available duloxetine 60 mg capsule,del ayed release TAKE 1 CAPSULE BY MOUTH two (2) times a day active Not Available Not Available No t Available quetiapine 50 mg tablet TAKE 1 TABLET BY MOUTH AT BEDTIME 04/16 completed Not Available Not Available Not Available diclofenac 1 % topical gel APPLY 2 grams TOPICALLY TO THE AFFECTED AREA two (2) times a day active Not Available Not Available No t Available OptiChamber Dipika [facility] spacer USE as instructe d active Not Available Not Available No t Available Vitals Date Recorded Body height Body weight Provider Name and Address Organization Details Last Updated DateTime 04/16/2024 162.56 cm 50475.41 g Amber Camargo [place] [facility] 04/16/2024 10:00:23 Social History None recorded. Functional Status None recorded. Mental Status None recorded. Family History Nothing Reported. Medical History Condition Response Arthritis Y High Cholesterol Y Hypertension Y Past Encounters Encounter ID Performer Location Encounter Start Date Encounter Closed Date Diagnosis/Indication Diagnosis SNOMED-CT Code Diagnosis ICD10 Code Diagnosis Note [id number] YASMEEN HOLLIS MD [facility] [address] [address] 04/16/2024 09:44:09 04/16/2024 10:29:05 Gastroesophageal reflux disease without esophagitis 354960329 K21.9 Persistent cough 3490558 02 R05.3 Feeling of lump in throat 517826877 R09.89 Health Concerns Section Related Observation LastModified by Organization Detai ls LastModified Time None Recorded Concern Status LastModified by Organization Details LastModified Time None Recorded Advance Directives Directive None Recorded Payers Encounter Date Sequence Insurance Name Policy Number Policy Ching Covered Member ID Ching Member ID Guarantor Name 04/16/2024 1 MEDICAID-DE: [id number] Mukesh Denton [id number] Mukesh Denton Notes Date Note Type Note Provider Name and Address Organization Details Recorded Time 04/16/2024 text/html 63 year old male presents to the office today reporting throat irritation for the past 2-3 months. He also has a dry cough that bothers him the most in the middle of the night. He reports globus sensation. He reports runny nose and postnasal drip and is on Zyrtec. He denies ear pain, difficulty swallowing, hoarseness. He has GERD and has been on Protonix for years. He is a 1/2 PPD smoker and has about six alcohol beverages weekly. No fever, chills, weight loss, night sweats or hemoptysis. YASMEEN HOLLIS MD [address] [place] [address], [phone], [place] - [facility] 04/17/2024 10:33:49
--- OUTSIDE RECORDS SUMMARY | 2024-10-13 13:10 | XMS_ITS | Encounter Summary ---
Author Organization [employer] Address [address] [facility] 7t [place] [address] Care Team Providers Care Visualizer Name Role Phone Kathy Farley MD Primary Care Provider [phone] Ilana Hough RN Unavailable [phone] Ilana Hough RN Unavailable [phone] Reason for Visit * Reason Onset Date Comments Med Refill 01/06/2023 Encounter Details Date Type Department Care Team (Late st Contact Info) Description 01/06/2023 Telephone [facility] MED & PEDS [address] [place] [address] Kathy Farley MD [address] [place] [address] Med Refill Social History Tobacco Use Types Packs/Day Years Used Date Smoking Tobacco: Never Assessed Sex and Gender Information Value Date Recorded Sex Assigned at Male 06/03/2022 10:33 AM EDT Legal Sex Male 10:33 AM EDT Gender Identity Male 06/03/2022 10:33 AM EDT Sexual Orientation Straight 06/03/2022 10 :33 AM EDT documented as of this encounter Miscellaneous Notes * Telephone Encounter - Mary Gross LPN - 01/06/2023 2:17 PM EDT Medication pended to PCP awaiting approval. * Telephone Encounter - Josefa Byers - 01/06/2023 2:05 PM EDT Tc from pt requesting med refill for medication gabapentin (Neurontin) 600 MG tablet. documented in this encounter Plan of Treatment Upcoming Encounters Date Type Department Care Team (Late st Contact Info) Description 01/19/2025 9:45 AM EDT Office Visit [facility] MED & PEDS [address] [place] [address] Kathy Farley MD [address] [place] [address] documented as of this encounter Visit Diagnoses Not on filedocumented in this encounter Care Teams Visualizer Relationship Specialty Start Date End Date Kathy Farley MD [address] [place] [address] PCP - General Internal Medicine 01/01/18 Ilana Hough RN [address] [place] [address] Reinsurance Claims AnalystMaterials Coordinator 05/04/24 09/01/24 Ilana Hough RN [address] [place] [address] Reinsurance Claims AnalystMaterials Coordinator 09/07/24 [facility] 09/18/22 documented as of this encounter
--- OUTSIDE RECORDS SUMMARY | 2024-10-13 13:10 | XMS_ITS | Encounter Summary ---
Author Organization [employer] Address [address] [facility] 7t [place] [address] Care Team Providers Care Experimental Outboard Motors Mechanic Name Role Phone Kathy Farley MD Primary Care Provider [phone] Ilana Huogh RN Unavailable [phone] Ilana Hough RN Unavailable [phone] Encounter Details Date Type Department Care Team ([facility] Contact Info) Description 05/04/2024 Orders Only [facility] [address] [place] [address] Provider, MD Erna Social History Tobacco Use Types Packs/Day Years [...] Description 01/19/2025 9:45 AM EDT Office Visit [facility] MED & PEDS [address] [place] [address] Kathy Farley MD [address] [place] [address] documented as of this encounter Procedures Procedure Name Priority Date/Time Associated Diagnosis Comments CT SOFT TISSUE NECK W CONTRAST Routine 05/04/2024 9:51 AM EDT documented in this encounter Results * CT SOFT TISSUE NECK W CONTRAST (05/04/2024 9:51 AM EDT) Anatomical Region Laterality Modality Computed Tomogra phy Historical Provider MD VILLARREAL CT PROCEDURES Final R esult documented in this encounter Visit Diagnoses Not on filedocumented in this encounter Care Teams Experimental Outboard Motors Mechanic Relationship Specialty Start Date End Date Kathy Farley MD [address] [place] [address] PCP - General Internal Medicine 01/01/18 Ilana Hough RN [address] [place] [address] Front End Developer Javascript Html CssF[employer] Enforcement Officer 05/04/24 09/01/24 Ilana Hough RN [address] [place] [address] Front End Developer Javascript Html [employer] Enforcement Officer 09/07/24 [facility] 09/18/22 documented as of this encounter
--- OUTSIDE RECORDS SUMMARY | 2024-10-13 13:10 | XMS_ITS | Encounter Summary ---
Author Organization [employer] Address [address] [facility] 7t [place] [address] Care Team Providers Care Marketing Development Specialist Name Role Phone Kathy Farley MD Primary Care Provider [phone] Ilana Hough RN Unavailable [phone] Ilana Hough RN Unavailable [phone] Reason for Visit * Reason Onset Date Comments Nurse Triage 03/15/2024 Encounter Details Date Type Department Care Team (Late st Contact Info) Description 03/15/2024 Telephone [facility] MEDICINE [address] [place] [address] Kathy Farley MD [address] [place] [address] Nurse Triage Social History Tobacco Use Types Packs/Day Years Used Date Smoking Tobacco: Every Day Cigarettes 0.5 49.2 Started: 08/04/1975 Passive Smoke Exposure: Current Smokeless Tobacco: Never Housing Stability Answer Date Recorded What is your housing situation today? I have janett díaz 05/21/[address] you [...] Recorded Patient Health Questionnaire-2 Score 0 01/22/2023 Sex and Gender Information Value Date Recorded Sex Assigned at Male 06/03/2022 10:33 AM EDT Legal Sex Male 10:33 AM EDT Gender Identity Male 06/03/2022 10:33 AM EDT Sexual Orientation Straight 06/03/2022 10 :33 AM EDT documented as of this encounter Miscellaneous Notes * Telephone Encounter - Sally Haile RN - 03/15/2024 11:24 AM EDT Triage call Pt reports cough for a month now. Pt reports cough is very dry, especially worse at night causing chest pain and difficulty breathing from constant coughing. No other symptoms reported neg for fever, body aches, nasal sx. Pt is using albuterol inhaler as prescribed without effect and using flonase as prescribed. Pt is advised to increase liquids 6-8 glasses daily especially warm drinks like decaf tea with some honey and lemon. Pt is advised to use hot steamy air from shower to help cough when it becomes constant. Cough drops and using 2 tsp of honey at bed time. OTC cough syrups available as well but, Pt doesn't want to purchase that. Pt is offered to come to [facility] today or [facility] tomorrow but, Pt declines stating, what are they going to do for me they already saw me . Ptis advised if this coughing should continue to get worse seek evaluation at closest ED and Pt agrees to do this. Pt agrees with disposition . Protocol Used: Cough (Adult) Protocol-Based Disposition: Home Care Positive Triage Question: * Cough with no complications * All higher-acuity triage questions were negative Care Advice Discussed: * Reassurance and Education - Cough * Cough Medicines * Cough Syrup With Dextromethorphan * Coughing Spells * Prevent Dehydration * Humidifier * Expected Course * Reasons To Call Back - Difficulty breathing - Cough lasts more than 3 weeks - Fever lasts more than 3 days - You become worse * Telephone Encounter - Jay Luna - 03/15/2024 10:55 AM EDT Symptom: worsening Cough Outcome: Schedule an appointment to be seen within 24 hours Reason: Caller denied all higher acuity questions The caller accepted this outcome documented in this encounter Plan of Treatment Upcoming Encounters Date Type Department Care Team ([facility] st Contact Info) Description 01/19/2025 9:45 AM EDT Office Visit [facility] MED & PEDS [address] [place] [address] Kathy Farley MD [address] [place] [address] documented as of this encounter Visit Diagnoses Not on filedocumented in this encounter Care Teams Marketing Development Specialist Relationship Specialty Start Date End Date Kathy Farley MD [address] [place] [address] PCP - General Internal Medicine 01/01/18 Ilana Hough RN [address] [place] [address] Outside Sales RepresentativeBlack And White Printer Operator 05/04/24 09/01/24 Ilana Hough RN [address] [place] [address] Outside Sales RepresentativeBlack And White Printer Operator 09/07/24 [facility] 09/18/22 documented as of this encounter
--- OUTSIDE RECORDS SUMMARY | 2024-10-13 13:10 | XMS_ITS | Encounter Summary ---
Author Organization [employer] Address [address] [facility] 7t [place] [address] Care Team Providers Care Electrical Timing Device Calibrator Name Role Phone Kathy Farley MD Primary Care Provider [phone] Ilana Hough RN Unavailable Encounter Details Date Type Department Care Team ([facility] st Contact Info) Description 09/15/2024 Telephone [facility] MEDICINE [address] [place] [address] Kathy Farley MD [address] [place] [address] Social History Tobacco Use Types Packs/Day Years [...] encounter Miscellaneous Notes * Telephone Encounter - Ilana Hough RN - 09/15/2024 3:51 PM EST CM called [facility]. Patient seen in office and 09/03/24. Patient is scheduled for medical clearance on 09/17/24 at 9:00am at [address] in [place]. Visit notes from 09/03 being faxed to [facility]. CM willscan to chart once received. Patient is also scheduled to see [facility] on 09/17 at 9:00am. CM/CHW will contact the office to reschedule this visit. documented in this encounter Plan of Treatment Upcoming Encounters Date Type Department Care Team ([facility] st Contact Info) Description 01/19/2025 9:45 AM EDT Office Visit [facility] MED & PEDS [address] [place] [address] Kathy Farley MD [address] [place] [address] documented as of this encounter Visit Diagnoses Not on filedocumented in this encounter Care Teams Electrical Timing Device Calibrator Relationship Specialty Start Date End Date Kathy Farley MD [address] [place] [address] PCP - General Internal Medicine 01/01/18 Ilana Hough RN [address] [place] [address] [place] [address] Knife SetterYouth Support Worker 09/07/24 [facility] 09/18/22 documented as of this encounter
--- OUTSIDE RECORDS SUMMARY | 2024-10-13 13:10 | XMS_ITS | Encounter Summary ---
Author Organization [employer] Address [address] [facility] 7t [place] [address] Care Team Providers Care Sustainable Systems Analyst Name Role Phone Kathy Farley MD Primary Care Provider [phone] Ilana Hough RN Unavailable [phone] Reason for Visit * Reason Comments Care Coordination Appt change Encounter Details Date Type Department Care Team (Latest Contact Info) Description 09/16/2024 Patient Outreach [facility] MED & PEDS [address] [place], [place] [phone] Kathy Farley MD [address] [place] [address] Care Coordination (Appt change) Social History Tobacco Use Types Packs/Day Years [...] AM EDT documented as of this encounter Progress Notes * Modesta Jeffries - 09/16/2024 8:23 AM EST CHW Modesta Jeffries scheduled appt for [facility] 10/01/24 130pm [address], appt that was scheduled for 09/17/24 has been canceled. CHW will update patient of new appt date documented in this encounter Plan of Treatment Upcoming Encounters Date Type Department Care Team (Late st Contact Info) Description 01/19/2025 9:45 AM EDT Office Visit [facility] MED & PEDS [address] [place] [address] Kathy Farley MD [address] [place] [address] documented as of this encounter Visit Diagnoses Not on filedocumented in this encounter Care Teams Sustainable Systems Analyst Relationship Specialty Start Date End Date Kathy Farley MD [address] [place] [address] PCP - General Internal Medicine 01/01/18 Ilana Hough RN [address] [place] [address] Roustabout SupervisorSpecial Education Preschool Teacher 09/07/24 [facility] 09/18/22 documented as of this encounter
--- OUTSIDE RECORDS SUMMARY | 2024-10-13 13:10 | XMS_ITS | Encounter Summary ---
Author Organization [employer] Address [address] [facility] 7t [place] [address] Care Team Providers Care Steward/Stewardess Dining Room Name Role Phone Kathy Farley MD Primary Care Provider [phone] Ilana Hough RN Unavailable [phone] Reason for Visit * Reason Comments Med Refill Encounter Details Date Type Department Care Team ([facility] st Contact Info) Description 09/02/2024 Refill [facility] MED & PEDS [address] [place], [place] [phone] Kathy Farley MD [address] [place] [address] Chronic pain of left knee Social History Tobacco Use Types Packs/Day Years [...] Upcoming Encounters Date Type Department Care Team ([facility] st Contact Info) Description 01/19/2025 9:45 AM EDT Office Visit [facility] MED & PEDS [address] [place] [address] Kathy Farley MD [address] [place] [address] documented as of this encounter Visit Diagnoses Diagnosis Chronic pain of left knee documented in this encounter Care Teams Steward/Stewardess Dining Room Relationship Specialty Start Date End Date Kathy Farley MD [address] [place] [address] PCP - General Internal Medicine 01/01/18 Ilana Hough RN [address] [place] [address] Mainframe ConsultantGetterer 09/07/24 [facility] 09/18/22 documented as of this encounter
--- OUTSIDE RECORDS SUMMARY | 2024-10-13 13:10 | XMS_ITS | Encounter Summary ---
Author Organization [employer] Address [address] [facility] 7t [place] [address] Care Team Providers Care Textile Technologist Name Role Phone Kathy Farley MD Primary Care Provider [phone]- [phone] Ilana Hough RN Unavailable [phone] Ilana Hough RN Unavailable [phone] Encounter Details Date Type Department Care Team (Latest Contact Info) Description 08/06/2024 Orders Only [facility] CHC MED & PEDS [address] [place] [address] Kathy Farley MD [address] [place] [address] Hypercholesterolemia (Primary Dx) Social History Tobacco Use Types Packs/Day Years [...] 01/19/2025 9:45 AM EDT Office Visit [facility] MED & PEDS [address] [place] [address] Kathy Farley MD [address] [place] [address] documented as of this encounter Visit Diagnoses Diagnosis Hypercholesterolemia- Primary Pure hypercholesterolemia documented in this encounter Care Teams Textile Technologist Relationship Specialty Start Date End Date Kathy Farley MD [address] [place] [address] PCP - General Internal Medicine 01/01/18 Ilana Hough RN [address] [place] [address] Process TrainerClinical Lab Clerk 05/04/24 09/01/24 Ilana Hough RN [address] [place] [address] Process TrainerClinical Lab Clerk 09/07/24 [facility] 09/18/22 documented as of this encounter
--- OUTSIDE RECORDS SUMMARY | 2024-10-13 13:10 | XMS_ITS | Encounter Summary ---
Author Organization [employer] Address [address] [facility] 7t [place] [address] Care Team Providers Care Supervisor Prep Name Role Phone Kathy Farley MD Primary Care Provider [phone] Ilana Hough RN Unavailable [phone] Reason for Visit * Reason Comments Care Coordination Appt reminder Encounter Details Date Type Department Care Team (Latest Contact Info) Description 09/16/2024 Patient Outreach [facility] CHC MED & PEDS [address] [place], [place] [phone] Kathy Farley MD [address] [place] [address] Care Coordination (Appt reminder) Social History Tobacco Use Types Packs/Day Years [...] Progress Notes * Modesta Jeffries - 09/16/2024 8:58 AM EST CHW Modesta Jeffries reminded patient of appt for [facility] 09/16/24 at 10:45am, patient is aware the PT1 will pick him up at 1015am. Patient will call me if there are any concerns. documented in this encounter Plan of Treatment Upcoming Encounters Date Type Department Care Team (Late st Contact Info) Description 01/19/2025 9:45 AM EDT Office Visit [facility] CHC MED & PEDS [address] [place] [address] Kathy Farley MD [address] [place] [address] documented as of this encounter Visit Diagnoses Not on filedocumented in this encounter Care Teams Supervisor Prep Relationship Specialty Start Date End Date Kathy Farley MD [address] [place] [address] PCP - General Internal Medicine 01/01/18 Ilana Hough RN [address] [place] [address] Drywall Stripper HelperBuffer Inflated Pad 09/07/24 [facility] 09/18/22 documented as of this encounter
--- OUTSIDE RECORDS SUMMARY | 2024-10-13 13:10 | XMS_ITS | Encounter Summary ---
Author Organization [employer] Address [address] [facility] 7[address] [place] [address] Care Team Providers Care Manufacturing Mechanic Name Role Phone Kathy Farley MD Primary Care Provider [phone] Ilana Hough RN Unavailable [phone] Ilana Hough RN Unavailable [phone] Reason for Visit * Reason Onset Date Comments Nurse Triage 07/30/2024 Encounter Details Date Type Department Care Team (Late st Contact Info) Description 07/30/2024 Telephone [facility] MEDICINE [address] [place] [address] Kathy Farley MD [address] [place] [address] Nurse Triage Social History Tobacco Use Types [...] encounter Miscellaneous Notes * Telephone Encounter - Melanie SpiveyNELDA - 07/30/2024 11:13 AM EST Triage call returned to patient via S # [id number] Indra. Does not need diplomatic interpreter/translator. Triage call returned to patient who reports pain with severe cramps in left leg. Cramps worse at night and now causing severe pain with mobility and pain in calf. Taking Tylenol with no noted improvement. Applies topical cream at night and no relief. Patient receives in home therapy for leg and isunable to tolerate it today due to pain. Patient endorses that left foot is darker in color during call. Patient reports concerns of blood clot. Patient also with ongoing pain in right shoulder receiving home therapy and was seen by [facility] told that he may need surgery but did not hear back from them. Advised to call [facility] and see what plan is for shoulder. Patient advised to seek ED evaluation of left foot with calf pain and darker color to foot. Disposition reviewed and patient in agreement withplan. Patient reports may seek ED care at [facility] when he can. Unable to ambulate to ED advised to call 911 for transport but patient reports unable to get back home afterwards. Patient to discuss with therapists in home today to see if transportation may be available. Team tasked to follow with patient. Multiple (2) protocols were used on this call. Disposition for Call: Go to ED/C Now (or to Office with PCP Approval) Protocol Used: Leg Pain (Adult) Protocol-Based Disposition: Go to Office or Video Visit Now Override (Final) Disposition: Go to ED/U[facility] Now (or to Office with PCP Approval) Override Reason: No appointments available Override Notes: Reports left foot discolored and concerned for blood clot Positive Triage Question: * Severe pain (e.g., excruciating, unable to do any normal activities) * All higher-acuity triage questions were negative Care Advice Discussed: * Pain Medicines * Reasons To Call Back - Signs of infection occur (such as spreading redness, warmth, fever) - You become worse Protocol Used: Shoulder Pain (Adult) Protocol-Based Disposition: See in Office or Video Visit within 2 Weeks Override (Final) Disposition: Refer to Specialist Override Reason: Already seen and questions Override Notes: Seen by [facility] advised to call them for plan of care. Video visit not offered Positive Triage Question: * Shoulder pain is a chronic symptom (recurrent or ongoing AND present > 4 weeks) * All higher-acuity triage questions were negative Care Advice Discussed: * Pain Medicines * Reasons To Call Back - Chest pain or difficulty breathing occurs - Moderate pain (such as interferes with normal activities) lasts over 3 days - Mild pain lasts over 7 days - You become worse * Telephone Encounter - Aspen May - 07/30/2024 10:52 AM EST Symptoms: Shoulder Pain - Not From Injury, Back Pain - Not From Injury, Leg cramps. Outcome: Talk to a nurse or provider within 15 minutes Reason: Can't walk (unless normally can't walk) The caller accepted this outcome. (Vincentian) documented in this encounter Plan of Treatment Upcoming Encounters Date Type Department Care Team (Late st Contact Info) Description 01/19/2025 9:45 AM EDT Office Visit [facility] MED & PEDS [address] [place] [address] Kathy Farley MD [address] [place] [address] documented as of this encounter Visit Diagnoses Not on filedocumented in this encounter Care Teams Manufacturing Mechanic Relationship Specialty Start Date End Date Kathy Farley MD [address] [place] [address] PCP - General Internal Medicine 01/01/18 Ilana Hough RN [address] [place] [address] Chrome Tanning Drum OperatorCore Winder 05/04/24 09/01/24 Ilana Hough RN [address] [place] [address] Chrome Tanning Drum OperatorCore Winder 09/07/24 [facility] 09/18/22 documented as of this encounter
--- OUTSIDE RECORDS SUMMARY | 2024-10-13 13:10 | XMS_ITS | Encounter Summary ---
Author Organization [employer] Address 75 [facility] 7t [place] [address] Care Team Providers Care Instrument Lens Grinder Name Role Phone Kathy Farley MD Primary Care Provider [phone] Ilana Hough RN Unavailable [phone] Ilana Hough RN Unavailable [phone] Reason for Visit * Reason Onset Date Comments Nurse Triage 08/12/2024 Encounter Details Date Type Department Care Team (Late st Contact Info) Description 08/12/2024 Telephone [facility] MEDICINE [address] [place] [address] Kathy Farley MD [address] [place] [address] Nurse Triage Social History Tobacco Use Types [...] encounter Miscellaneous Notes * Telephone Encounter - Linda Chapa RN - 08/12/2024 4:20 PM EST Called pt. He states that I can't take this pain anymore I need the Dr. To put me in the hospital overnight and have them do multiple tests to see what's wrong with my left leg . I cannot sleepat night or do anything and my leg is constantly cramping ,I cannot even sleep at night . I need my Doctor to order testing and put me in hospital until they find out what is wrong with my leg, I can't live like this anymore, no one knows how painful my leg is and I'm not an actor making these things up . Pt. States the medication is not working that PCP prescribed for leg cramping. I offered pt. Appt for 08/13/24 and pt states I can't go outside ,it will kill me with this cold weather, I need my Doctor to put me in the hospital and order testing for my leg . I advised pt. That he needs toanswer telephone when PCP calls or he will be waiting even longer to get his needs met as he cancelled his in office appt for 08/11/24. Pt. States it's too cold out and I'm not going to go outside because it will kill me . Pt. Left leg not red, not hot to touch, no swelling no lump. Pt. Is not Asthmatic or Diabetic. Protocol Used: Leg Pain (Adult) Protocol-Based Disposition: Go to Office or Video Visit Now-televisit 08/13/24-140pm. Video visit not offered Positive Triage Questions: * Severe pain (e.g., excruciating, unable to do any normal activities) * Leg pain or muscle cramp is a chronic symptom (recurrent or ongoing AND lasting > 4 weeks) * All higher-acuity triage questions were negative * Telephone Encounter - Alexy Nascimento - 08/12/2024 4:05 PM EST Symptom: Leg Pain - Not From Injury Outcome: Schedule an urgent appointment (within 1 hour) or talk to a nurse or provider soon Reason: Trouble walking The caller accepted this outcome. documented in this encounter Plan of Treatment Upcoming Encounters Date Type Department Care Team (Late st Contact Info) Description 01/19/2025 9:45 AM EDT Office Visit [facility] MED & PEDS [address] [place] [address] Kathy Farley MD [address] [place] [address] documented as of this encounter Visit Diagnoses Not on filedocumented in this encounter Care Teams Instrument Lens Grinder Relationship Specialty Start Date End Date Kathy Farley MD [address] [place] [address] PCP - General Internal Medicine 01/01/18 Ilana Hough RN [address] [place] [address] Submarine Element CoordinatorNeonatal Specialist 05/04/24 09/01/24 Ilana Hough RN [address] [place] [address] Submarine Element CoordinatorNeonatal Specialist 09/07/24 [facility] 09/18/22 documented as of this encounter
--- OUTSIDE RECORDS SUMMARY | 2024-10-13 13:10 | XMS_ITS | Encounter Summary ---
Author Organization [employer] Address 75 [facility] 7t [place] [address] Care Team Providers Care Forest Fire Prevention Specialist Name Role Phone Kathy Farley MD Primary Care Provider [phone] Ilana Hough RN Unavailable [phone] Ilana Hough RN Unavailable [phone] Encounter Details Date Type Department Care Team (Late st Contact Info) Description 04/07/2024 Orders Only [facility] CHC MED & PEDS [address] [place] [address] Kathy Farley MD [address] [place] [address] Screening for colon cancer (Primary Dx) Social History Tobacco Use Types [...] Upcoming Encounters Date Type Department Care Team ([facility] st Contact Info) Description 01/19/2025 9:45 AM EDT Office Visit [facility] CHC MED & PEDS [address] [place] [address] Kathy Farley MD [address] [place] [address] Scheduled Orders Name Type Priority Associated Diagnoses Orde r Schedule Cologuard?? colon cancer screening Lab Routine Screening for colon cancer Expected: 04/07/2024 (Approximate), Expires: 04/07/2025 documented as of this encounter Visit Diagnoses Diagnosis Screening for colon cancer- Primary Special screening for malignant neoplasms, colon documented in this encounter Care Teams Forest Fire Prevention Specialist Relationship Specialty Start Date End Date Kathy Farley MD [address] [place] [address] PCP - General Internal Medicine 01/01/18 Ilana Hough RN [address] [place] [address] Nurse ExaminerWatch Assembly Instructor 05/04/24 09/01/24 Ilana Hough RN [address] [place] [address] Nurse ExaminerWatch Assembly Instructor 09/07/24 [facility] 09/18/22 documented as of this encounter
--- OUTSIDE RECORDS SUMMARY | 2024-10-13 13:10 | XMS_ITS | Encounter Summary ---
Author Organization [employer] Address 75 [facility] 7t [place] [address] Care Team Providers Care Chute Loader Name Role Phone Kathy Farley MD Primary Care Provider [phone] Ilana Hough RN Unavailable [phone] Ilana Hough RN Unavailable [phone] Encounter Details Date Type Department Care Team ([facility] st Contact Info) Description 03/09/2024 Orders Only [facility] [address] [place] [address] Provider, MD Erna Social History Tobacco Use [...] [facility] MED & PEDS [address] [place] [address] Kathy Farley MD [address] [place] [address] documented as of this encounter Procedures Procedure Name Priority Date/Time Associated Diagnosis Comments TRANSTHORACIC ECHO (TTE) COMPLETE Routine 03/04/2024 8:30 AM EDT documented in this encounter Results * Transthoracic echo (TTE) complete (03/04/2024 8:30 AM EDT) us Historical Provider CV ECHO PROCEDURES Final Result documented in this encounter Visit Diagnoses Not on filedocumented in this encounter Care Teams Chute Loader Relationship Specialty Start Date End Date Kathy Farley MD [address] [place] [address] PCP - General Internal Medicine 01/01/18 Ilana Hough RN [address] [place] [address] Shirt Folding Machine OperatorSoftware Design Engineer 05/04/24 09/01/24 Ilana Hough RN [address] [place] [address] Shirt Folding Machine OperatorSoftware Design Engineer 09/07/24 [facility] 09/18/22 documented as of this encounter
--- OUTSIDE RECORDS SUMMARY | 2024-10-13 13:11 | XMS_ITS | Encounter Summary ---
Author Organization [employer] Address [address] [facility] 7t [place] [address] Care Team Providers Care Press Tender Star Signal Name Role Phone Kathy Farley MD Primary Care Provider [phone] Ilana Hough RN Unavailable [phone] Reason for Visit * Reason Onset Date Comments Care Management 09/17/2024 C3CM- f/u call l vm Encounter Details Date Type Department Care Team (Late st Contact Info) Description 09/17/2024 Telephone [facility] MEDICINE [address] [place] [address] Kathy Farley MD [address] [place] [address] Care Management (C3CM- f/u call lv) Social History Tobacco Use Types Packs/Day Years [...] Telephone Encounter - Ilana Hough RN - 09/17/2024 12:28 PM EST CM Ilana Hough RN placed outbound call with CHW Modesta Jeffries to patient for follow up call. Noanswer at this time. LVM introducing herself from [facility] CM Department. Requested call back. CM reinforced direct contact information or CHW for any additional questions or concerns. Education provided on [facility] located in [facility]. Patient provided with after-hours line for [facility], , which offer night time triage service and option to transfer to induction heating equipment setter provider if needed. CM will attempt another follow up call within 10 days. documented in this encounter Plan of Treatment Upcoming Encounters Date Type Department Care Team (Late st Contact Info) Description 01/19/2025 9:45 AM EDT Office Visit [facility] MED & PEDS [address] [place], [place] [phone] Kathy Farley MD [address] [place] [address] documented as of this encounter Visit Diagnoses Not on filedocumented in this encounter Care Teams Press Tender Star Signal Relationship Specialty Start Date End Date Kathy Farley MD [address] [place] [address] PCP - General Internal Medicine 01/01/18 Ilana Hough RN [address] [place] [address] Buckle Frame ShaperAgricultural Produce Sorter 09/07/24 [facility] 09/18/22 documented as of this encounter
--- OUTSIDE RECORDS SUMMARY | 2024-10-13 13:11 | XMS_ITS | Encounter Summary ---
Author Organization [employer] Address [address] [facility] 7t [place] [address] Care Team Providers Care Shade Matcher Name Role Phone Kathy Farley MD Primary Care Provider [phone] Ilana Hough RN Unavailable [phone] Reason for Visit * Reason Comments Med Refill Encounter Details Date Type Department Care Team ([facility] st Contact Info) Description 09/24/2024 Refill [facility] MEDICINE [address] [place] [address] Kathy Farley MD [address] [place] [address] Hypercholesterolemia Social History Tobacco Use Types Packs/Day Years Used Date Smoking Tobacco: Every Day Cigarettes 0.5 49.2 Started: 08/04/1975 Passive Smoke Exposure: Current Smokeless Tobacco: Never Housing Stability Answer Date Recorded What is your housing situation today? I have janett arjun 05/21/[address] you li [...] Upcoming Encounters Date Type Department Care Team ([facility] st Contact Info) Description 01/19/2025 9:45 AM EDT Office Visit [facility] MED & PEDS [address] [place] [address] Kathy Farley MD [address] [place] [address] documented as of this encounter Visit Diagnoses Diagnosis Hypercholesterolemia Pure hypercholesterolemia documented in this encounter Care Teams Shade Matcher Relationship Specialty Start Date End Date Kathy Farley MD [address] [place] [address] PCP - General Internal Medicine 01/01/18 Ilana Hough RN [address] [place] [address] Test EvaluatorTriage Registered Nurse 09/07/24 [facility] 09/18/22 documented as of this encounter
--- OUTSIDE RECORDS SUMMARY | 2024-10-13 13:11 | XMS_ITS | Encounter Summary ---
Author Organization [employer] Address [address] [facility] 7t [place] [address] Care Team Providers Care Security Chief Museum Name Role Phone Kathy Farley MD Primary Care Provider [phone] Ilana Hough RN Unavailable [phone] Ilana Hough RN Unavailable [phone] Reason for Visit * Reason Onset Date Comments Med Refill 10/24/2023 Encounter Details Date Type Department Care Team (Late st Contact Info) Description 10/24/2023 Refill [facility] MED & PEDS [address] [place] [address] Kathy Farley MD [address] [place], [place] [id number] Chronic pain of left knee (Primary Dx) Social History Tobacco Use Types [...] got money to buy more: Never True 05/21/2023 Within the past 12 months,th e food you bought just didn't last and you didn't have enough money to get more: Never True Transportation Answer Date Recorded In the past [...] encounter Miscellaneous Notes * Telephone Encounter - Josefa Byers - 10/24/2023 11:52 AM EDT TC from pt requesting medication refill. Medications needing refill : traMADol (Ultram) 50 MG tablet To be sent to: [facility] - [place], [place] - [id number] - [place] - [address] documented in this encounter Plan of Treatment Upcoming Encounters Date Type Department Care Team (Late st Contact Info) Description 01/19/2025 9:45 AM EDT Office Visit [facility] CHC MED & PEDS [address] [place] [address] Kathy Farley MD [address] [place] [address] documented as of this encounter Visit Diagnoses Diagnosis Chronic pain of left knee- Primary documented in this encounter Care Teams Security Chief Museum Relationship Specialty Start Date End Date Kathy Farley MD [address] [place] [address] PCP - General Internal Medicine 01/01/18 Ilana Hough, RN [address] [place] [address] Jewelry MechanicAppraiser Boats And Marine 05/04/24 09/01/24 Ilana Hough RN [address] [place] [address] Jewelry MechanicAppraiser Boats And Marine 09/07/[address] [facility] 09/18/22 documented as of this encounter
--- OUTSIDE RECORDS SUMMARY | 2024-10-13 13:11 | XMS_ITS | Encounter Summary ---
Author Organization [employer] Address [address] [facility] 7t [place] [address] Care Team Providers Care Gis Technician Name Role Phone Kathy Farley MD Primary Care Provider [phone] Ilana Hough RN Unavailable [phone] Reason for Visit * Reason Comments Care Coordination Appt reminder Encounter Details Date Type Department Care Team (Latest Contact Info) Description 10/01/2024 Patient Outreach [facility] CHC MED & PEDS [address] [place], [place] [phone] Kathy Farley MD [address] [place] [address] Care Coordination (Appt reminder) Social History Tobacco [...] encounter Progress Notes * Modesta Jeffries - 10/01/2024 11:37 AM EST CHW Modesta Jeffries placed outbound call to patient introducing herself from [facility] CM Department, in regard to remind patient of appt for 10/01/24 @ 130PM at [facility]. Patient's name and was confirmed. Patient is aware and confirmed will be available and has no barriers on attending this appointment. Patient verbalized understanding and agreed with plan. documented in this encounter Plan of Treatment Upcoming Encounters Date Type Department Care Team ([facility] st Contact Info) Description 01/19/2025 9:45 AM EDT Office Visit [facility] MED & PEDS [address] [place] [address] Kathy Farley MD [address] [place] [address] documented as of this encounter Visit Diagnoses Not on filedocumented in this encounter Care Teams Gis Technician Relationship Specialty Start Date End Date Kathy Farley MD [address] [place] [address] PCP - General Internal Medicine 01/01/18 Ilana Hough RN [address] [place] [address] Analytical ConsultantProgrammer Analyst Consultant 09/07/24 [facility] 09/18/22 documented as of this encounter
--- OUTSIDE RECORDS SUMMARY | 2024-10-13 13:11 | XMS_ITS | Encounter Summary ---
Author Organization [employer] Address [address] [facility] [address] [place] [address] Care Team Providers Care Electrical Experimental Mechanic Name Role Phone Kathy Farley MD Primary Care Provider [phone] Ilana Hough RN Unavailable [phone] Ilana Hough RN Unavailable [phone] Reason for Visit * Reason Onset Date Comments Nurse Triage 11/12/2023 Encounter Details Date Type Department Care Team (Late st Contact Info) Description 11/12/2023 Telephone [facility] MEDICINE [address] [place] [address] Kathy Farley MD [address] [place] [address] Nurse Triage Social History Tobacco Use Types [...] Telephone Encounter - Sally Haile RN - 11/12/2023 2:58 PM EDT Triage call Pt reports cough for a month now. Pt did try to go to urgent care today but, reports they wouldn't take his insurance. Cough is non productive, worse at night. Pt reports slight fever at night time but not during the day. Pt reports chest hurts from the coughing. No difficulty breathing. Pt also reports a headache due to the constant coughing. Pt reports taking nyquil, using vicks vapo rub and taking cough drops all without effect. Pt reports an itchy feeling in back of throat. Ptis advised to increase liquids 6-8 glasses daily ie. decaf tea, broth, water, gator buster . Also Pt is advised to take 1-2 tsp honey especially before bed for cough. Pt agrees with home care advised. Apt with QUALITY MANAGEMENT NURSE Gema 11/14/23 @ 1100am, Pt did cancel last apt 11/05 with PCP and is advised to make everyeffort to make appt and Pt agrees. Insurance is verified as active prior to booking Protocol Used: Cough (Adult) Protocol-Based Disposition: See in Office or Video Visit within 3 Days Positive Triage Question: * Cough has been present for > 3 weeks * All higher-acuity triage questions were negative Care Advice Discussed: * Reassurance and Education - Cough * Cough Medicines * Prevent Dehydration * Reasons To Call Back - Difficulty breathing - Cough lasts more than 3 weeks - Fever lasts more than 3 days - You become worse * Telephone Encounter - Misha Jeffries - 11/12/2023 2:07 PM EDT Symptoms: Cough, Chest Pain - Adult Outcome: Transfer to a nurse or provider NOW! Reason: Severe pain now Pt was triaged 11/05 to go to a nearby urgent care, pt attempted to go to a urgent care but they did not accept his insurance. Pt stated he has difficulty coming to the walk in [place] due to transportation. documented in this encounter Plan of Treatment Upcoming Encounters Date Type Department Care Team (Late st Contact Info) Description 01/19/2025 9:45 AM EDT Office Visit [facility] MED & PEDS [address] [place] [address] Kathy Farley MD [address] [place] [address] documented as of this encounter Visit Diagnoses Not on filedocumented in this encounter Care Teams Electrical Experimental Mechanic Relationship Specialty Start Date End Date Kathy Farley MD [address] [place] [address] PCP - General Internal Medicine 01/01/18 Ilana Hough RN [address] [place] [address] [employer]man[employer] Manager 05/04/24 09/01/24 Ilana Hough RN [address] [place] [address] FlagmanLan Manager 09/07/24 [facility] 09/18/22 documented as of this encounter
--- OUTSIDE RECORDS SUMMARY | 2024-10-13 13:11 | XMS_ITS | Encounter Summary ---
Author Organization [employer] Address [address] [facility] [address] [place] [address] Care Team Providers Care Corn Breeder Name Role Phone Kathy Farley MD Primary Care Provider [phone] Ilana Hough RN Unavailable [phone] Reason for Visit * Reason Onset Date Comments Care Management 09/27/2024 C3CM- f/u call Encounter Details Date Type Department Care Team ([facility] st Contact Info) Description 09/27/2024 Telephone [facility] MEDICINE [address] [place] [address] Kathy Farley MD [address] [place] [address] Care Management (C3CM- f/u call) Social History Tobacco Use Types Packs/Day Years [...] Telephone Encounter - Ilana Hough RN - 09/27/2024 3:46 PM EST CM called the [facility]. Informed patient was seen on 09/17 as scheduled. Advised wound healed and patient does not need a follow up. Visit notes will be faxed to [facility]. CM will send to scan oncereceived. CM called [facility]. Patient seen on 09/17. Appointment was for medical clearance but surgery not yet scheduled. Office notes will be faxed to [facility]. CM will send to scan once received. NEREIDA Hough RN and EBER Jeffries placed outbound call to patient. Patient's name, and address confirmed. Patient c/o left shoulder pain. He states he is awaiting plan from [facility]. CM will follow up. Per patient, went to visit with [facility]. He states he is scheduled for a follow up appt but cannot recall visit details. CM called the office. Patient is scheduled to be seen on 10/08/24 at 1:40pm. EBER Byers will assist with PT1 and will update patient. Last office notes will be faxed to [facility]. CM will send to scan once received. Per patient, was informed by provider that his glasses could not be fixed at their office and was instructed to follow up with [facility] Optometry. DESTINEEW will outreach office to set up an appt. Patient inquiring on EMG results. Advised a message was sent to PCPto review. Patient will be contacted with response once reviewed. He agrees. CM reminded patient that he is scheduled to see PCP on 10/13/24 at 10:30am. PT 1 will be set up for visit. No further questions or concerns. CM reinforced direct contact information or CHW for any additional questions or concerns. Education provided on [facility] Ur[facility] Care located in [facility] of [facility]. Patient provided with after-hours line for [facility], , which offer night time triage service and option to transfer to business development consultant provider if needed. Patient verbalizes understanding, and able to repeat back to copy writer. A follow up call will be placed within 10 days, patientagrees with plan. documented in this encounter Plan of Treatment Upcoming Encounters Date Type Department Care Team ([facility] st Contact Info) Description 01/19/2025 9:45 AM EDT Office Visit [facility] MED & PEDS [address] [place] [address] Kathy Farley MD [address] [place] [address] documented as of this encounter Visit Diagnoses Not on filedocumented in this encounter Care Teams Corn Breeder Relationship Specialty Start Date End Date Kathy Farley MD [address] [place] [address] PCP - General Internal Medicine 01/01/18 Ilana Hough, DUNG [address] [place] [address] [employer]er[employer] Humanities Teacher 09/07/24 [facility] 09/18/22 documented as of this encounter
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
--- OUTSIDE RECORDS SUMMARY | 2024-10-13 13:11 | XMS_ITS | Encounter Summary ---
Author Organization [employer] Address [address] [facility] 7t [place] [address] Care Team Providers Care Through Operator Name Role Phone Kathy Farley MD Primary Care Provider [phone] Ilana Hough RN Unavailable [phone] Ilana Hough RN Unavailable [phone] Encounter Details Date Type Department Care Team ([facility] st Contact Info) Description 02/17/2024 Orders Only [facility] [address] [place] [address] Provider, MD Erna Social History Tobacco Use [...] Description 01/19/2025 9:45 AM EDT Office Visit [facility] MED & PEDS [address] [place] [address] Kathy Farley MD [address] [place] [address] documented as of this encounter Procedures Procedure Name Priority Date/Time Associated Diagnosis Comments CT LUNG SCREENING Routine 02/17/2024 11:32 AM EDT documented in this encounter Results * CT Lung Screening Low dose (02/17/2024 11:32 AM EDT) Anatomical Region Laterality Modality Lung Computed Tomogra phy us Historical Provider MD VILLARREAL CT PROCEDURES Final R esult documented in this encounter Visit Diagnoses Not on filedocumented in this encounter Care Teams Through Operator Relationship Specialty Start Date End Date Kathy Farley MD [address] [place] [address] PCP - General Internal Medicine 01/01/18 Ilana Hough RN [address] [place] [address] Senior Firewall EngineerAir Quality Engineer 05/04/24 09/01/24 Ilana Hough RN [address] [place] [address] Senior Firewall EngineerAir Quality Engineer 09/07/24 [facility] 09/18/22 documented as of this encounter
--- OUTSIDE RECORDS SUMMARY | 2024-10-13 13:11 | XMS_ITS | Encounter Summary ---
Author Organization [employer] Address [address] [facility] 7t [place] [address] Care Team Providers Care Scaffolding Helper Name Role Phone Kathy Farley MD Primary Care Provider [phone] Ilana Hough RN Unavailable [phone] Ilana Hough RN Unavailable [phone] Reason for Visit * Reason Onset Date Comments Results 12/05/2023 Encounter Details Date Type Department Care Team ([facility] Contact Info) Description 12/05/2023 Telephone [facility] MED & PEDS [address] [place] [address] Kathy Farley MD [address] [place] [address] Results Social History Tobacco Use Types Packs/Day Years [...] encounter Miscellaneous Notes * Telephone Encounter - Wing Manju RN - 12/09/2023 12:14 PM EDT Tc to pt to relay X-ray results. Pt reported upper back pain near his shoulders x1 week with a rating of 8/10 during the day and 10/10 at night that makes it difficult to sleep. Pt requested more pain medication. Stated to pt that pt needs to be seen for more to be prescribed which frustrated patient. Scheduled appt with Dr. Cui on 12/09 at 11:15 am. Pt verbalized understanding and agreement with plan. * Telephone Encounter - Howie Tian - 12/09/2023 11:56 AM EDT Tc from patient calling in regards to the message below would like a call back for results * Telephone Encounter - Leonor Childress RN - 12/08/2023 2:26 PM EDT TC X1 to pt regarding message below. XR scanned into chart. No fracture just degenerative changes found in XR associated with normal wear and tear . LVM to return call to nurses. Pt has upcoming appt on 12/23/23 with PCP and can also discuss results then. * Telephone Encounter - Teresa Hough - 12/05/2023 11:36 AM EDT TC from pt requesting call back regarding Results. Type of results: Xray shoulder Date when done: 12/02 Facility: [facility] imaging Please contact pt at [phone] documented in this encounter Plan of Treatment Upcoming Encounters Date Type Department Care Team ([facility] st Contact Info) Description 01/19/2025 9:45 AM EDT Office Visit [facility] MED & PEDS [address] [place] [address] Kathy Farley MD [address] [place] [address] documented as of this encounter Visit Diagnoses Not on filedocumented in this encounter Care Teams Scaffolding Helper Relationship Specialty Start Date End Date Kathy Farley MD [address] [place] [address] PCP - General Internal Medicine 01/01/18 Ilana Hough RN [address] [place] [address] Counselor Education ProfessorAssistant Professor 05/04/24 09/01/24 Ilana Hough RN [address] [place] [address] Counselor Education ProfessorAssistant Professor 09/07/[address] [facility] 09/18/22 documented as of this encounter
--- OUTSIDE RECORDS SUMMARY | 2024-10-13 13:11 | XMS_ITS | Encounter Summary ---
Author Organization [employer] Address [address] [facility] 7t [place] [address] Care Team Providers Care Addiction Professional Name Role Phone Kathy Farley MD Primary Care Provider [phone] Ilana Hough RN Unavailable [phone] Reason for Visit * Reason Comments Care Coordination Appt reminders Encounter Details Date Type Department Care Team (Latest Contact Info) Description 10/12/2024 Patient Outreach [facility] CHC MED & PEDS [address] [place] [address] Kathy Farley MD [address] [place] [address] Care Coordination (Appt reminders) Social History Tobacco Use Types Packs/Day Years Used Date Smoking Tobacco: Every Day Cigarettes 0.5 49.2 Started: 08/04/1975 Passive Smoke Exposure: Current Smokeless Tobacco: Never Depression Answer Date Recorded Patient Health Questionnaire-9 [...] encounter Progress Notes * Modesta Jeffries - 10/12/2024 10:27 AM EDT CHW Modesta Jeffries placed call to patient to remind patient of appt for 10/12/24 at 130pm [facility] vascular for ultrasound and appt on 10/13/24 with PCP at [facility] at 10/13/24. Patient is aware and has transportation to both. documented in this encounter Plan of Treatment Upcoming Encounters Date Type Department Care Team ([facility] st Contact Info) Description 01/19/2025 9:45 AM EDT Office Visit [facility] MED & PEDS [address] [place] [address] Kathy Farley MD [address] [place] [address] documented as of this encounter Visit Diagnoses Not on filedocumented in this encounter Care Teams Addiction Professional Relationship Specialty Start Date End Date Kathy Farley MD [address] [place] [address] PCP - General Internal Medicine 01/01/18 Ilana Hough RN [address] [place] [address] Slip DumperLiner Assembler 09/07/24 [facility] 09/18/22 documented as of this encounter
--- OUTSIDE RECORDS SUMMARY | 2024-10-13 13:11 | XMS_ITS | Encounter Summary ---
Author Organization [employer] Address [address] [facility] 7t [place] [address] Care Team Providers Care Secretary To The Vice President Name Role Phone Kathy Farley MD Primary Care Provider [phone] Ilana Hough RN Unavailable [phone] Ilana Hough RN Unavailable [phone] Reason for Visit * Reason Onset Date Comments Nurse Triage 10/27/2023 Encounter Details Date Type Department Care Team ([facility] st Contact Info) Description 10/27/[address] [facility] CHC MED & PEDS [address] [place] [address] Kathy Farley MD [address] [place] [address] Nurse Triage Social History Tobacco Use Types [...] encounter Miscellaneous Notes * Telephone Encounter - Eric Grove RN - 11/06/2023 11:21 AM EDT T/C to pt. For below message, pt. States he cancelled apt. Due to weather. Pt,. Offered apt. On 11/06 but denied. Pt. States his main concern is cough, due to weather he gets more cough at night time. And due to cough when he cough he gets TIMMONS. No fever , no other concerns. Pt. Advised to go to nearest ED in case of any new or worsening symptoms. Pt. Also advised to go to walk in center at [facility]. Pt. Advised to Drink lots of water and other fluids, Take cough medicine as directed by your doctor, Prop up head on pillows to help you breathe and ease a dry cough, Try cough drops or hard candy to soothe a dry or sore throat and Do not smoke. Pt. Verbally agreed and understood. * Telephone Encounter - Jessica Wang - 11/06/2023 9:58 AM EDT Tc from pt requesting to r/s sick visit scheduled for 11/06/23. Appt was cancelled. Please contact at [phone] * Telephone Encounter - Wing Manju RN - 10/28/2023 11:03 AM EDT Tc to pt regarding PCP's recommendations. Pt states his coughthas been going on for about three weeks, has not been getting better, has runny nose, itchy throat, states he can hardly breath ,and has headaches when coughing. Denies fever. Scheduled appt with PCP for 11/05 at 11:15 am and mailed apptreminder to pt's address. Pt verbalized understanding and agreement with plan. * Telephone Encounter - Lizeth Ramirez RN - 10/27/2023 12:54 PM EDT Call to Mukesh Denton, reports having a dry cough x 2 weeks. Pt having mild intermittent wheezing. Per pt no fever in last [address] or ear pain. Mild runny nose. Homekit for COVID-19 negative. Pt has not used any OTC meds for cough. Pt has been drinking lemon tea with honey with mild relief. Pt offered WIC today or CHC SDC tomorrow. Pt declines states wants PCP to send in Rx . Does not want to come into office. Pt advised that cannot guarantee that PCP will not advise of need to be seen since onset > 2 weeks and having intermittent wheezing. Pt agrees. Protocol Used: Cough (Adult) Protocol-Based Disposition: See in Office or Video Visit Today or Tomorrow Override (Final) Disposition: Discuss with PCP and Callback by Nurse Today Override Reason: Other Override Notes: declines WIC Or CHC visit. Wants PCP to send in Rx for cough. Video visit offer not recorded Positive Triage Question: * Continuous (nonstop) coughing interferes with work or school and no improvement using cough treatment per Care Advice * All higher-acuity triage questions were negative Care Advice Discussed: * Reassurance and Education - Cough * Cough Medicines * Coughing Spells * Prevent Dehydration * Avoid Tobacco Smoke * Reasons To Call Back - Difficulty breathing - You become worse * Telephone Encounter - Josefa Byers - 10/27/2023 11:52 AM EDT Symptom: Cough Outcome: Schedule an appointment to be seen within 24 hours Reason: Caller denied all higher acuity questions The caller accepted this outcome Pt informs did covid test and came back negative . documented in this encounter Plan of Treatment Upcoming Encounters Date Type Department Care Team (Late st Contact Info) Description 01/19/2025 9:45 AM EDT Office Visit [facility] MED & PEDS [address] [place] [address] Kathy Farley MD [address] [place] [address] documented as of this encounter Visit Diagnoses Not on filedocumented in this encounter Care Teams Secretary To The Vice President Relationship Specialty Start Date End Date Kathy Farley MD [address] [place] [address] PCP - General Internal Medicine 01/01/18 Ilana Hough RN [address] [place] [address] Survey Workers SupervisorAdvanced Manager 05/04/24 09/01/24 Ilana Hough RN [address] [place] [address] Survey Workers SupervisorAdvanced Manager 09/07/24 [facility] 09/18/22 documented as of this encounter
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
--- OUTSIDE RECORDS SUMMARY | 2024-10-13 13:11 | XMS_ITS | Encounter Summary ---
Author Organization [employer] Address [address] [facility] 7t [place] [address] Care Team Providers Care Correction Officer Penitentiary Name Role Phone Kathy Farley MD Primary Care Provider [phone] Ilana Hough RN Unavailable [phone] Reason for Visit * Reason Onset Date Comments Med Refill 09/24/2024 Encounter Details Date Type Department Care Team (Late st Contact Info) Description 09/24/2024 Refill [facility] MEDICINE [address] [place] [address] Kathy Farley MD [address] [place] [address] Subacute cough; Muscle cramps; Major depressive disorder, single episode, unspecified; History of alcohol abuse Social History Tobacco Use Types Packs/Day Years [...] encounter Miscellaneous Notes * Telephone Encounter - Alexy Nascimento - 09/24/2024 4:21 PM EST TC from pt requesting medication refill. Medications needing refill : albuterol 108 (90 Base) MCG/ACT inhaler tiZANidine (Zanaflex) 4 MG tablet folic acid (Folvite) 1 MG tablet pantoprazole (ProtoNix) 40 MG EC tablet prazosin (Minipress) 2 MG capsule To be sent to: [facility] [place] - [id number] [place] - [address] documented in this encounter Plan of Treatment Upcoming Encounters Date Type Department Care Team (Late st Contact Info) Description 01/19/2025 9:45 AM EDT Office Visit [facility] MED & PEDS [address] [place] [address] Kathy Farley MD [address] [place] [address] documented as of this encounter Visit Diagnoses Diagnosis Subacute cough Muscle cramps Major depressive disorder, single episode, unspecified History of alcohol abuse Nondependent alcohol abuse, in remission documented in this encounter Care Teams Correction Officer Penitentiary Relationship Specialty Start Date End Date Kathy Farley MD [address] [place] [address] PCP - General Internal Medicine 01/01/18 Ilana Hough RN [address] [place] [address] Manager Process ImprovementWellness Instructor 09/07/24 [facility] 09/18/22 documented as of this encounter
--- OUTSIDE RECORDS SUMMARY | 2024-10-13 13:11 | XMS_ITS | Encounter Summary ---
Author Organization [employer] Address 75 [facility] 7t [place] [address] Care Team Providers Care Ear Nose Throat Physician Name Role Phone Kathy Farley MD Primary Care Provider [phone] Ilana Hough RN Unavailable [phone] Reason for Visit * Reason Comments Care Coordination PT1 Encounter Details Date Type Department Care Team (Latest Contact Info) Description 09/28/2024 Patient Outreach [facility] MED & PEDS [address] [place], [place] [phone] Kathy Farley MD [address] [place] [address] Care Coordination (PT1) Social History Tobacco Use Types Packs/Day Years [...] encounter Progress Notes * Modesta Jeffries - 09/28/2024 10:15 AM EST CHW Modesta Jeffries scheduled PT1 for appts [facility] vascular appt 10/01/24 130pm /Eye and lasik 40pm. CHW will remind patient of appts. documented in this encounter Plan of Treatment Upcoming Encounters Date Type Department Care Team (Late st Contact Info) Description 01/19/2025 9:45 AM EDT Office Visit [facility] MED & PEDS [address] [place] [address] Kathy Farley MD [address] [place] [address] documented as of this encounter Visit Diagnoses Not on filedocumented in this encounter Care Teams Ear Nose Throat Physician Relationship Specialty Start Date End Date Kathy Farley MD [address] [place] [address] PCP - General Internal Medicine 01/01/18 Ilana Hough, DUNG [address] [place] [address] Perl Software EngineerHead Concierge 09/07/24 [facility] 09/18/22 documented as of this encounter
--- OUTSIDE RECORDS SUMMARY | 2024-10-13 13:11 | XMS_ITS | Encounter Summary ---
Author Organization [employer] Address [address] [facility] 7t [place] [address] Care Team Providers Care Swing Ride Operator Name Role Phone Kathy Farley MD Primary Care Provider [phone] Ilana Hough RN Unavailable [phone] Reason for Visit * Reason Comments Care Coordination Appt reminder Encounter Details Date Type Department Care Team (Latest Contact Info) Description 09/21/2024 Patient Outreach [facility]EDS [address] [place], [place] [id number] Kathy Farley MD [address] [place] [address] Care Coordination (Appt reminder) Social History Tobacco [...] encounter Progress Notes * Modesta Jeffries - 09/21/2024 8:05 AM EST CHW Modesta Jeffries placed call to remind patient of appointment on 09/21/24 for eye and Lasik at 1pm, PT1 will worm picker patient at 1230PM. CHW will follow up with patient within 10 days. documented in this encounter Plan of Treatment Upcoming Encounters Date Type Department Care Team ([facility] st Contact Info) Description 01/19/2025 9:45 AM EDT Office Visit [facility] [address] [place] [address] Kathy Farley MD [address] [place] [address] documented as of this encounter Visit Diagnoses Not on filedocumented in this encounter Care Teams Swing Ride Operator Relationship Specialty Start Date End Date Kathy Farley MD [address] [place] [address] PCP - General Internal Medicine 01/01/18 Ilana Hough RN 505 [place] [address] Transportation DispatcherLogging Equipment Mechanic 09/07/24 [facility] 09/18/22 documented as of this encounter
--- OUTSIDE RECORDS SUMMARY | 2024-10-13 13:11 | XMS_ITS | Encounter Summary ---
Author Organization [employer] Address [address] [facility] 7t [place] [address] Care Team Providers Care Aboriginal Home School Liaison Officer Name Role Phone Kathy Farley MD Primary Care Provider [phone] Ilana Hough RN Unavailable [phone] Ilana Hough RN Unavailable [phone] Encounter Details Date Type Department Care Team (Late st Contact Info) Description 12/16/2023 Orders Only [facility] MED & PEDS [address] [place] [address] Kathy Farley MD [address] [place] [address] Chronic right shoulder pain (Primary Dx); Arthritis of carpometacarpal (CMC) joint of right thumb Social History Tobacco Use Types Packs/Day Years [...] Description 01/19/2025 9:45 AM EDT Office Visit [facility] MED & PEDS [address] [place] [address] Kathy Farley MD [address] [place] [address] documented as of this encounter Visit Diagnoses Diagnosis Chronic right shoulder pain- Primary Pain in joint, shoulder region Arthritis of carpometacarpal (CMC) joint of right thumb documented in this encounter Care Teams Aboriginal Home School Liaison Officer Relationship Specialty Start Date End Date Kathy Farley MD [address] [place] [address] PCP - General Internal Medicine 01/01/18 Ilana Hough RN [address] [place] [address] Garnett Machine Operator HelperDevelopment Engineer 05/04/24 09/01/24 Ilana Hough RN [address] [place] [address] Garnett Machine Operator HelperDevelopment Engineer 09/07/24 [facility] 09/18/22 documented as of this encounter
--- OUTSIDE RECORDS SUMMARY | 2024-10-13 13:11 | XMS_ITS | Encounter Summary ---
Author Organization [employer] Address [address] [facility] [address] 7[address] [place] [address] Care Team Providers Care Tan Room Supervisor Name Role Phone Kathy Farley MD Primary Care Provider [phone] Ilana Hough RN Unavailable [phone] Encounter Details Date Type Department Care Team (Latest Contact Info) Description 10/13/2024 Travel Social History Tobacco Use Types Packs/Day Years [...] Description 01/19/2025 9:45 AM EDT Office Visit [facility] MED & PEDS [address] [place] [address] Kathy Farley MD [address] [place] [address] documented as of this encounter Visit Diagnoses Not on filedocumented in this encounter Additional Health Concerns Assessment Noted Time PHQ-9 Depression Total Score: 0 10/14/19 25 10:00 AM EDT documented as of this encounter Care Teams Tan Room Supervisor Relationship Specialty Start Date End Date Kathy Farley MD [address] [place] [address] PCP - General Internal Medicine 01/01/18 Ilaan Hough RN [address] [place] [address] Vp GeneticBallistics Tester 09/07/24 [facility] 09/18/22 documented as of this encounter
--- OUTSIDE RECORDS SUMMARY | 2024-10-13 13:11 | XMS_ITS | Encounter Summary ---
Author Organization [employer] Address [address] [facility] 7t [place] [address] Care Team Providers Care Tile Finisher Name Role Phone Kathy Farley MD Primary Care Provider [phone] Ilana Hough RN Unavailable [phone] Reason for Visit * Reason Comments Pre-visit Planning SDOH positive, Tobac co screening negative. Encounter Details Date Type Department Care Team ([facility] Contact Info) Description 10/06/2024 Patient Outreach [facility] MED & PEDS [address] [place] [address] Kathy Farley MD [address] [place] [address] Pre-visit Planning (SDOH positive, Tobacco screening negative. ) Social History Tobacco Use Types Packs/Day Years [...] as of this encounter Progress Notes * Komal Strange - 10/06/2024 3:50 PM EST CC Komal Jacobs placed successful outbound call to patient for pre-visit planning. Patient name and confirmed. Patient confirms appt date and time, and has transportation arrangements. Biggest concern for appointment at this time is left leg hurts. Appropriate screenings completed in anticipationof appointment. documented in this encounter Plan of Treatment Upcoming Encounters Date Type Department Care Team ([facility] st Contact Info) Description 01/19/2025 9:45 AM EDT Office Visit [facility] MED [facility] PEDS [address] [place] [address] Kathy Farley MD [address] [place] [address] documented as of this encounter Visit Diagnoses Not on filedocumented in this encounter Care Teams Tile Finisher Relationship Specialty Start Date End Date Kathy Farley MD [address] [place] [address] PCP - General Internal Medicine 01/01/18 Ilana Hough RN [address] [place] [address] Medical ObserverFiber Machine Tender 09/07/24 [facility] 09/18/22 documented as of this encounter
--- OUTSIDE RECORDS SUMMARY | 2024-10-13 13:11 | XMS_ITS | Encounter Summary ---
Author Organization [employer] Address [address] [facility] 7t [place] [address] Care Team Providers Care Grind Operator Name Role Phone Kathy Farley MD Primary Care Provider [phone] Ilana Hough RN Unavailable [phone] Reason for Visit * Reason Onset Date Comments Call Back Request 09/24/2024 Encounter Details Date Type Department Care Team ([facility] st Contact Info) Description 09/24/2024 Telephone [facility] MEDICINE [address] [place] [address] Kathy Farley MD [address] [place] [address] Call Back Request Social History Tobacco Use Types Packs/Day Years [...] encounter Miscellaneous Notes * Telephone Encounter - Leda Tilley RN - 09/28/2024 11:43 AM EST Tc to pt to give provider recommendation. Instructed pt to reach out to [facility] to review results from EMG of left leg per provider recommendation. Pt verbalized understanding and agreement with recommendation and plan. * Telephone Encounter - Alexy Nascimento - 09/24/2024 4:18 PM EST Tc from pt returning call in regards his left leg pain he states [facility] office (no name of facility) told him results will be sent over to PCP as he will like to know what's going on. [phone] documented in this encounter Plan of Treatment Upcoming Encounters Date Type Department Care Team (Late st Contact Info) Description 01/19/2025 9:45 AM EDT Office Visit [facility] MED & PEDS [address] [place] [address] Kathy Farley MD [address] [place] [address] documented as of this encounter Visit Diagnoses Not on filedocumented in this encounter Care Teams Grind Operator Relationship Specialty Start Date End Date Kathy Farley MD [address] [place] [address] PCP - General Internal Medicine 01/01/18 Ilana Hough RN [address] [place] [id number] Edi ArchitectQuilt Stuffer 09/07/24 [facility] 09/18/22 documented as of this encounter
--- OUTSIDE RECORDS SUMMARY | 2024-10-13 13:11 | XMS_ITS | Encounter Summary ---
Author Organization [employer] Address [address] [facility] 7t [place] [address] Care Team Providers Care Schedule Manager Name Role Phone Kathy Farley MD Primary Care Provider [phone] Ilana Hough RN Unavailable [phone] Ilana Hough RN Unavailable [phone] Reason for Visit * Reason Onset Date Comments Reschedule 08/15/2022 Encounter Details Date Type Department Care Team ([facility] st Contact Info) Description 08/15/2022 Telephone [facility] MED & PEDS [address] [place] [address] Kathy Farley MD [address] [place] [address] Reschedule Social History Tobacco Use Types Packs/Day Years [...] Telephone Encounter - Ilana Hough RN - 08/15/2022 10:38 AM EST Call to pt. Offered visit for tomorrow and pt declines due to weather. Requesting to move visit to next week. Offered 3:30pm with PCP on 08/20/22. Pt declines. Agrees to visit on 08/20/22 @1:00pm with Dr. Teran. * Telephone Encounter - Josefa Byers - 08/15/2022 10:04 AM EST Tc from pt requesting to r/s today canceled sick appt . States his ride canceled due to weather . documented in this encounter Plan of Treatment Upcoming Encounters Date Type Department Care Team (Late st Contact Info) Description 01/19/2025 9:45 AM EDT Office Visit [facility] MED & PEDS [address] [place] [address] Kathy Farley MD [address] [place] [address] documented as of this encounter Visit Diagnoses Not on filedocumented in this encounter Care Teams Schedule Manager Relationship Specialty Start Date End Date Kathy Farley MD [address] [place] [address] PCP - General Internal Medicine 01/01/18 Ilana Hough RN [address] [place] [address] Director MultimediaTest Data Developer 05/04/24 09/01/24 Ilana Hough RN [address] [place] [address] Director MultimediaTest Data Developer 09/07/24 [facility] 09/18/22 documented as of this encounter
--- OUTSIDE RECORDS SUMMARY | 2024-10-13 13:11 | XMS_ITS | Encounter Summary ---
Author Organization [employer] Address [address] [facility] 7t [place] [address] Care Team Providers Care Boring Mill Operator Name Role Phone Kathy Farley MD Primary Care Provider [phone] Ilana Hough RN Unavailable [phone] Ilana Hough RN Unavailable [phone] Encounter Details Date Type Department Care Team (Late st Contact Info) Description 09/24/2023 Orders Only [facility] MED & PEDS [address] [place] [address] Kathy Farley MD [address] [place] [address] Chronic left-sided lumbar radiculopathy (Primary Dx) Social History Tobacco Use Types [...] 9:45 AM EDT Office Visit [facility] MED & PEDS [address] [place] [address] Kathy Farley MD [address] [place] [address] documented as of this encounter Visit Diagnoses Diagnosis Chronic left-sided lumbar radiculopathy- Primary documented in this encounter Care Teams Boring Mill Operator Relationship Specialty Start Date End Date Kathy Farley MD [address] [place] [address] PCP - General Internal Medicine 01/01/18 Ilana Hough RN [address] [place] [address] Wireline OperatorScenario Writer 05/04/24 09/01/24 Ilana Hough RN [address] [place] [address] Wireline OperatorScenario Writer 09/07/24 [facility] 09/18/22 documented as of this encounter
--- OUTSIDE RECORDS SUMMARY | 2024-10-13 13:11 | XMS_ITS | Encounter Summary ---
Author Organization [employer] Address [address] [facility] 7t [place] [address] Care Team Providers Care Coroner Transport Technician Name Role Phone Kathy Farley MD Primary Care Provider [phone] Ilana Hough RN Unavailable [phone] Ilana Hough RN Unavailable [phone] Reason for Visit * Reason Comments Med Refill Encounter Details Date Type Department Care Team (Late st Contact Info) Description 08/15/2023 Refill [facility] MEDICINE [address] [place] [address] Kathy Farley MD [address] [place] [address] Chronic low back pain, unspecified back pain laterality, unspecified whether sciatica present Social History Tobacco Use Types Packs/Day Years [...] 9:45 AM EDT Office Visit [facility] MED & PEDS [address] [place] [address] Kathy Farley MD [address] [place] [address] documented as of this encounter Visit Diagnoses Diagnosis Chronic low back pain, unspecified back pain laterality, unspecified whether sciatica present documented in this encounter Care Teams Coroner Transport Technician Relationship Specialty Start Date End Date Kathy Farley MD [address] [place] [address] PCP - General Internal Medicine 01/01/18 Ilana Hough RN [address] [place] [address] Follow Up ClerkNaphthalene Still Operator 05/04/24 09/01/24 Ilana Hough RN [address] [place] [address] Follow Up ClerkNaphthalene Still Operator 09/07/24 [facility] 09/18/22 documented as of this encounter
--- OUTSIDE RECORDS SUMMARY | 2024-10-13 13:11 | XMS_ITS | Encounter Summary ---
Author Organization [employer] Address [address] [facility] 7t [place] [address] Care Team Providers Care Farmer Diversified Crops Name Role Phone Kathy Farley MD Primary Care Provider [phone] Ilana Hough RN Unavailable [phone] Reason for Visit * Reason Onset Date Comments Care Management 10/12/2024 C3CM- f/u call Encounter Details Date Type Department Care Team ([facility] st Contact Info) Description 10/12/2024 Telephone [facility] [address] [place] [address] Kathy Farley MD [address] [place] [address] Care Management (C3CM- f/u call) Social History [...] Telephone Encounter - Ilana Hough RN - 10/12/2024 1:29 PM EDT CM received call from [employer]. Informed patient was supposed to follow up with the office after the EMG to go over the results but patient was not scheduled. Advised they have openings for this week andcan schedule the patient in for 10/15/24 at 9:45am. Visit will be at [address] [place] [address] in [place], 2nd floor. Visit scheduled. EBER Byers aware and PT1 scheduled. Will call the patient the day prior with an appt reminder. documented in this encounter Plan of Treatment Upcoming Encounters Date Type Department Care Team ([facility] st Contact Info) Description 01/19/2025 9:45 AM EDT Office Visit [facility] MED & PEDS [address] [place] [address] Kathy Farley MD [address] [place] [address] documented as of this encounter Visit Diagnoses Not on filedocumented in this encounter Care Teams Farmer Diversified Crops Relationship Specialty Start Date End Date Kathy Farley MD [address] [place] [address] PCP - General Internal Medicine 01/01/18 Ilana Hough RN [address] [facility] [place] [id number] Ditching Machine EngineerPartner Manager 09/07/24 [facility] 09/18/22 documented as of this encounter
--- OUTSIDE RECORDS SUMMARY | 2024-10-13 13:11 | XMS_ITS | Encounter Summary ---
Author Organization [employer] Address [address] [facility] 7t [place] [address] Care Team Providers Care Food Checkers And Cashiers Supervisor Name Role Phone Kathy Farley MD Primary Care Provider [phone] Ilana Hough RN Unavailable [phone] Reason for Visit * Reason Onset Date Comments Care Management 10/08/2024 C3CM- f/u call Encounter Details Date Type Department Care Team ([facility] st Contact Info) Description 10/08/2024 Telephone [facility] MEDICINE [address] [place] [address] Kathy Farley MD [address] [place] [address] Care Management (C3CM- f/u call) Social History [...] Telephone Encounter - Ilana Hough RN - 10/08/2024 12:52 PM EST CM Ilana Hough RN and CHW Modesta Jeffries placed outbound call to patient. Patient's name, and address confirmed. Patient c/o left leg cramping/ pain. He states this is an ongoing issue. Patient denies any redness, swelling, warmth to site. Per patient, taking gabapentin with no relief. He states he saw his visiting nurse this morning. Per patient, vitals taken and patient given meds. He states the visiting nurse advised he follow up with PCP as scheduled on 10/13. Patient is aware of the scheduled visit on 10/13/24. PT1 has been set and patient will be contacted with appt details the dayprior. Patient states he cancelled the visit with Eye and Lasik today and reschedule it to 10/22/24 at 10:40am. CM advised patient that PT1 will be set for the visit and he will be contacted with details once scheduled. He agrees. No further questions or concerns. CM reinforced direct contact information or CHW for any additional questions or concerns. Education provided on [facility] located in [facility]. Patient provided with after-hours line for [facility], , which offer night time triage service and option to transfer to professional advisor provider if needed. Patient verbalizes understanding, and able to repeat back to song writer. A follow up call will be placed within 10 days, patientagrees with plan. CM attempted to contact [facility] to f/u on EMG and plan of care. Office closed until Friday. CM will f/u on 10/11/24. documented in this encounter Plan of Treatment Upcoming Encounters Date Type Department Care Team (Late st Contact Info) Description 01/19/2025 9:45 AM EDT Office Visit [facility] MED & PEDS [address] [place] [address] Kathy Farley MD [address] [place] [address] documented as of this encounter Visit Diagnoses Not on filedocumented in this encounter Care Teams Food Checkers And Cashiers Supervisor Relationship Specialty Start Date End Date Kathy Farley MD [address] [place] [address] PCP - General Internal Medicine 01/01/18 Ilana Hough RN [address] [place] [address] Store Management TraineeFire Sprinkler Designer 09/07/24 [facility] 09/18/22 documented as of this encounter
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
--- OUTSIDE RECORDS SUMMARY | 2024-10-13 13:11 | XMS_ITS | Encounter Summary ---
Author Organization [employer] Address [address] [facility] [address] [place] [address] Care Team Providers Care Process Laboratory Specialist Name Role Phone Kathy Farley MD Primary Care Provider [phone] Ilana Hough RN Unavailable [phone] Reason for Visit * Reason Comments Care Coordination SDOH/appt reminder Encounter Details Date Type Department Care Team (Latest Contact Info) Description 09/17/2024 Patient Outreach [facility] [address] [place] [address] Kathy Farley MD [address] [place] [address] Care Coordination (SDOH/appt reminder) Social History Tobacco Use Types Packs/Day [...] encounter Progress Notes * Modesta Jeffries - 09/17/2024 11:53 AM EST CHW Modesta Jeffries/CM Ilana Hough RN placed outbound call to patient for follow up call on SDOH needs. No answer at this time. LVM introducing herself from [facility] CM Department. Requested call back. CHW reinforced direct contact information or CM for any additional questions or concerns and extended clinic hours on Mondays and Wednesdays, and Walk-In Urgent Care Located in [facility]. Patient provided with after-hours line for [facility], , which offer night time triage service and option to transfer to metal bonding press operator provider if needed. CHW will attempt another follow up call within 10 days. (CHW also LVM with details of appt for Eye and Lasik on 09/21/24 at1:05pm. documented in this encounter Plan of Treatment Upcoming Encounters Date Type Department Care Team ([facility] st Contact Info) Description 01/19/2025 9:45 AM EDT Office Visit [facility] [address] [place] [address] Kathy Farley MD [address] [place] [address] documented as of this encounter Visit Diagnoses Not on filedocumented in this encounter Care Teams Process Laboratory Specialist Relationship Specialty Start Date End Date Kathy Farley MD [address] [place] [address] PCP - General Internal Medicine 01/01/18 Ilana Hough RN [address] [place], [place] [id number] Jewelry AppraiserCement Sack Breaker 09/07/24 [facility] 09/18/22 documented as of this encounter
--- OUTSIDE RECORDS SUMMARY | 2024-10-13 13:11 | XMS_ITS | Encounter Summary ---
Author Organization [employer] Address [address] [facility] 7t [place] [address] Care Team Providers Care Motorcycle Designer Name Role Phone Kathy Farley MD Primary Care Provider +[phone]- [phone] Ilana Hough RN Unavailable [phone] Ilana Hough RN Unavailable [phone] Encounter Details Date Type Department Care Team (Late st Contact Info) Description 08/15/2023 Orders Only [facility] CHC MED & PEDS [address] [place] [address] Kathy Farley MD [address] [place] [address] Primary hypertension (Primary Dx) Social History Tobacco Use Types [...] [facility] MED & PEDS [address] [place] [address] Kathy Farley MD [address] [place] [address] documented as of this encounter Visit Diagnoses Diagnosis Primary hypertension- Primary Unspecified essential hypertension documented in this encounter Care Teams Motorcycle Designer Relationship Specialty Start Date End Date Kathy Farley MD [address] [place] [address] PCP - General Internal Medicine 01/01/18 Ilana Hough RN [address] [place] [address] Telemarketing RepresentativeLicensed Practical Nurse 05/04/24 09/01/24 Ilana Hough RN [address] [place] [address] Telemarketing RepresentativeLicensed Practical Nurse 09/07/24 [facility] 09/18/22 documented as of this encounter
--- OUTSIDE RECORDS SUMMARY | 2024-10-13 13:11 | XMS_ITS | Encounter Summary ---
Author Organization [employer] Address [address] [facility] 7t [place] [address] Care Team Providers Care Sheet Rock Applier Name Role Phone Kathy Farley MD Primary Care Provider +1 [phone] Ilana Hough RN Unavailable [phone] Reason for Visit * Reason Onset Date Comments Care Management 10/11/2024 C3CM- f/u call Encounter Details Date Type Department Care Team ([facility] st Contact Info) Description 10/11/2024 Telephone [facility] MEDICINE [address] [place] [address] Kathy Farley MD [address] [place] [address] Care Management (C3CM- f/u call) Social History [...] Telephone Encounter - Ilana Hough RN - 10/11/2024 10:38 AM EDT CM called [facility]. Informed that the EMG was ordered by [facility] and results were sentto their office. CM called [facility]. Informed the patient was last seen for his knee 06/03. Advised there are no notes in the chart regarding plan for follow up. A message will be sent to their team to follow up with CM. In regard to his shoulder, advised patient was last seen on 09/17. Patient receivedan injection and plan is to f/u in 6-8 weeks. Advised surgery was discussed, but it did not seem that patient planned to move forward with this. Advised that patient can f/u with their office if he intends on proceeding with surgery. documented in this encounter Plan of Treatment Upcoming Encounters Date Type Department Care Team (Late st Contact Info) Description 01/19/2025 9:45 AM EDT Office Visit [facility] CHC MED & PEDS [address] [place] [address] Kathy Farley MD [address] [place] [address] documented as of this encounter Visit Diagnoses Not on filedocumented in this encounter Care Teams Sheet Rock Applier Relationship Specialty Start Date End Date Kathy Farley MD [address] [place] [address] PCP - General Internal Medicine 01/01/18 Ilana Hough RN [address] [place] [address] Clinical Trial AssistantNascar Pit Crew Person 09/07/24 [facility] 09/18/22 documented as of this encounter
--- OUTSIDE RECORDS SUMMARY | 2024-10-13 13:11 | XMS_ITS | Encounter Summary ---
Author Organization [facility] [facility] Address [address] [facility] 7t [place] [address] Care Team Providers Care Steam Box Hand Name Role Phone Kathy Farley MD Primary Care Provider +1 [phone] Ilana Hough RN Unavailable [phone] Ilana Hough RN Unavailable [phone] Reason for Referral * Consultation (Routine) - Closed Specialty Diagnoses / Procedures Referred By Roseanna judd Referred To Contact Orthopaedic Surgery Diagnoses Acute pain of right shoulder Tear of right supraspinatus tendon Tear of right glenoid labrum, initial encounter Kathy Farley MD [address] [place] [address] Phone: tel: fax: [facility] [address] [place] [address] [place] [address] Phone: tel: fax: Referral ID Status Reason Start Date Expiration Date V isits Requested Visits Authorized [id number] Closed Specialty Services Required 06/21/2024 06/21/2025 1 1 Encounter Details Date Type Department Care Team (Late st Contact Info) Description 06/11/2024 Orders Only [facility] CHC MED & PEDS [address] [place] [address] Kathy Farley MD [address] [place] [address] Acute pain of right shoulder (Primary Dx); Tear of right supraspinatus tendon; Tear of right glenoid labrum, initial encounter Social History Tobacco Use Types Packs/Day Years [...] Upcoming Encounters Date Type Department Care Team ([facility] st Contact Info) Description 01/19/2025 9:45 AM EDT Office Visit [facility] CHC MED & PEDS [address] [place] [address] Kathy Farley MD [address] [place] [address] Scheduled Referrals Name Type Priority Associated Diagnoses Orde r Schedule Referral to Orthopaedic Surgery Outpatient Referral Routine Acute pain of right shoulder Tear of right supraspinatus tendon Tear of right glenoid labrum, initial encounter Expected: 06/21/2024 (Approximate), Expires: 06/21/2025 documented as of this encounter Visit Diagnoses Diagnosis Acute pain of right shoulder- Primary Tear of right supraspinatus tendon Tear of right glenoid labrum, initial encounter documented in this encounter Care Teams Steam Box Hand Relationship Specialty Start Date End Date Kathy Farley MD [address] [place] [address] PCP - General Internal Medicine 01/01/18 Ilana Hough RN [address] [place] [address] Platform ManTip Mender 05/04/24 09/01/24 Ilana Hough RN [address] [place] [address] Platform ManTip Mender 09/07/24 [facility] 09/18/22 documented as of this encounter
--- OUTSIDE RECORDS SUMMARY | 2024-10-13 13:11 | XMS_ITS | Encounter Summary ---
Author Organization [employer] Address [address] [facility] 7t [place] [address] Care Team Providers Care Animal Behaviorist Name Role Phone Kathy Farley MD Primary Care Provider [phone] Ilana Hough RN Unavailable [phone] Ilana Hough RN Unavailable [phone] Reason for Visit * Reason Onset Date Comments Med Refill 11/12/2023 Encounter Details Date Type Department Care Team ([facility] st Contact Info) Description 11/12/2023 Telephone [facility] CHC MED & PEDS [address] [place] [address] Kathy Farley MD [address] [place] [address] Med Refill Social History Tobacco Use Types [...] * Telephone Encounter - Josefa Byers - 11/12/2023 11:01 AM EDT TC from pt requesting medication refill. Medications needing refill : gabapentin (Neurontin) 600 MG tablet To be sent to: [facility] - [place] - [id number] [place] - [address] documented in this encounter Plan of Treatment Upcoming Encounters Date Type Department Care Team (Late st Contact Info) Description 01/19/2025 9:45 AM EDT Office Visit [facility] CHC MED & PEDS [address] [place] [address] Kathy Farley MD [address] [place] [address] documented as of this encounter Visit Diagnoses Not on filedocumented in this encounter Care Teams Animal Behaviorist Relationship Specialty Start Date End Date Kathy Farley MD [address] [place] [address] PCP - General Internal Medicine 01/01/18 Ilana Hough RN [address] [place] [address] LithostripperCredit Control Assistant 05/04/24 09/01/24 Ilana Hough RN [address] [place], [place] [address] [address] LithostripperCredit Control Assistant 09/07/24 [facility] 09/18/22 documented as of this encounter
--- OUTSIDE RECORDS SUMMARY | 2024-10-13 13:11 | XMS_ITS | Encounter Summary ---
Author Organization [employer] Address 75 [facility] 7t [place] [address] Care Team Providers Care Risk Control Field Representative Name Role Phone Kathy Farley MD Primary Care Provider [phone] Ilana Hough RN Unavailable [phone] Reason for Visit * Reason Comments Med Refill Encounter Details Date Type Department Care Team (Late st Contact Info) Description 09/24/2024 [facility] [address] [place] [address] Kathy Farley MD [address] [place] [address] History of alcohol abuse; Major depressive disorder, single episode, unspecified Social History Tobacco Use Types Packs/Day Years Used Date Smoking Tobacco: Every Day Cigarettes 0.5 49.2 Started: 08/04/1975 Passive Smoke Exposure: Current Smokeless Tobacco: Never Housing Stability Answer Date Recorded What is your housing situation today? I have jaentt díaz 05/21/[address] you [...] 9:45 AM EDT Office Visit [facility] MED & PEDS [address] [place] [address] Kathy Farley MD [address] [place] [address] documented as of this encounter Visit Diagnoses Diagnosis History of alcohol abuse Nondependent alcohol abuse, in remission Major depressive disorder, single episode, unspecified documented in this encounter Care Teams Risk Control Field Representative Relationship Specialty Start Date End Date Kathy Farley MD [address] [place] [address] PCP - General Internal Medicine 01/01/18 Ilana Hough RN [address] [place] [address] Warper TenderFirer Portable Boiler 09/07/24 [facility] 09/18/22 documented as of this encounter
--- OUTSIDE RECORDS SUMMARY | 2024-10-13 13:11 | XMS_ITS | Encounter Summary ---
Author Organization [employer] Address 75 [facility] 7t [place] [address] Care Team Providers Care Cooker Mechanic Name Role Phone Kathy Farley MD Primary Care Provider [phone] Ilana Hough RN Unavailable [phone] Reason for Visit * Reason Comments Care Coordination PT1 Encounter Details Date Type Department Care Team (Latest Contact Info) Description 10/05/2024 Patient Outreach [facility] CHC MED & PEDS [address] [place], [place] [phone] Kathy Farley MD [address] [place] [address] Care Coordination (PT1) Social History Tobacco Use [...] encounter Progress Notes * Modesta Jeffries - 10/05/2024 8:43 AM EST CHW Modesta Jeffries scheduled PT1 for appt on 10/13/24 at 1030am at [facility] with PCP. CHW will remind patient of appt. documented in this encounter Plan of Treatment Upcoming Encounters Date Type Department Care Team (Late st Contact Info) Description 01/19/2025 9:45 AM EDT Office Visit [facility] MED & PEDS [address] [place] [address] Kathy Farley MD [address] [place] [address] documented as of this encounter Visit Diagnoses Not on filedocumented in this encounter Care Teams Cooker Mechanic Relationship Specialty Start Date End Date Kathy Farley MD [address] [place] [address] PCP - General Internal Medicine 01/01/18 Ilana Hough RN [address] [place] [address] Cigarette SellerVp Publisher Development 09/07/24 [facility] 09/18/22 documented as of this encounter
--- OUTSIDE RECORDS SUMMARY | 2024-10-13 13:11 | XMS_ITS | Encounter Summary ---
Author Organization [employer] [facility] Address [address] [place] [address] 7t [place] [address] Care Team Providers Care Brakeshoe Repairer Name Role Phone Kathy Farley MD Primary Care Provider [phone] Ilana Hough RN Unavailable [phone] Ilana Hough RN Unavailable [phone] Reason for Visit * Reason Comments Med Refill Encounter Details Date Type Department Care Team (Late Contact Info) Description 09/06/2022 Refill [facility] MEDICINE [address] [place] [address] NameMadi MD [address] [place] [address] Dorsalgia, unspecified Social History Tobacco Use Types Packs/Day [...] 01/19/2025 9:45 AM EDT Office Visit [facility] CHC MED & PEDS [address] [place], [place] [phone] Kathy Farley MD [address] [place] [address] documented as of this encounter Visit Diagnoses Diagnosis Dorsalgia, unspecified documented in this encounter Care Teams Brakeshoe Repairer Relationship Specialty Start Date End Date Kathy Farley MD [address] [place] [address] PCP - General Internal Medicine 01/01/18 Ilana Hough RN [address] [place] [address] Unix System AdministratorDovetailer 05/04/24 09/01/24 Ilana Hough RN [address] [place] [address] Unix System AdministratorDovetailer 09/07/24 [facility] 09/18/22 documented as of this encounter
--- OUTSIDE RECORDS SUMMARY | 2024-10-13 13:11 | XMS_ITS | Encounter Summary ---
Author Organization [employer] Address [address] [facility] [address] 7t [place] [address] Care Team Providers Care Director Of Strategic Sales Name Role Phone Kathy Farley MD Primary Care Provider [phone] Ilana Hough RN Unavailable [phone] Ilana Hough RN Unavailable [phone] Reason for Visit * Reason Comments Med Refill Encounter Details Date Type Department Care Team (Late st Contact Info) Description 01/13/2024 Refill [facility] CHC MED & PEDS [address] [place], [place] [phone] Carolyn Ribeiro FNP [address] [place], [place] [phone] Chronic low back pain, unspecified back pain [...] Upcoming Encounters Date Type Department Care Team ([facility] st Contact Info) Description 01/19/2025 9:45 AM EDT Office Visit [facility] MED & PEDS [address] [place] [address] Kathy Farley MD [address] [place] [address] documented as of this encounter Visit Diagnoses Diagnosis Chronic low back pain, unspecified back pain laterality, unspecified whether sciatica present documented in this encounter Care Teams Director Of Strategic Sales Relationship Specialty Start Date End Date Kathy Farley MD [address] [place] [address] PCP - General Internal Medicine 01/01/18 Ilana Hough RN [address] [place] [address] Intravenous Therapy NurseDip Lube Operator 05/04/24 09/01/24 Ilana Hough RN [address] [place] [address] Intravenous Therapy NurseDip Lube Operator 09/07/24 [facility] 09/18/22 documented as of this encounter
--- OUTSIDE RECORDS SUMMARY | 2024-10-13 13:11 | XMS_ITS | Encounter Summary ---
Author Organization [employer] Address 75 [facility] 7t [place] [address] Care Team Providers Care Sugar Mill Worker Name Role Phone Kathy Farley MD Primary Care Provider [phone] Ilana Hough RN Unavailable [phone] Ilana Hough RN Unavailable [phone] Reason for Visit * Reason Comments Med Refill Encounter Details Date Type Department Care Team (Late st Contact Info) Description 08/15/2023 Refill [facility] MEDICINE [address] [place] [address] Kathy Farley MD [address] [place] [address] Chronic low back pain, unspecified back pain [...] Description 01/19/2025 9:45 AM EDT Office Visit [facility] MED & PEDS [address] [place] [address] Kathy Farley MD [address] [place] [address] documented as of this encounter Visit Diagnoses Diagnosis Chronic low back pain, unspecified back pain laterality, unspecified whether sciatica present documented in this encounter Care Teams Sugar Mill Worker Relationship Specialty Start Date End Date Kathy Farley MD [address] [place] [address] PCP - General Internal Medicine 01/01/18 Ilana Hough RN [address] [place] [address] Acupressure TherapistNew Product Trainer 05/04/24 09/01/24 Ilana Hough RN [address] [place] [address] Acupressure TherapistNew Product Trainer 09/07/24 [facility] 09/18/22 documented as of this encounter
--- OUTSIDE RECORDS SUMMARY | 2024-10-13 13:12 | XMS_ITS | Encounter Summary ---
Author Organization [facility] Address [address] [facility] 7t [place] [address] Care Team Providers Care Bridge Engineer Name Role Phone Kathy Farley MD Primary Care Provider [phone] Ilaan Hough RN Unavailable [phone] Ilana Hough RN Unavailable [phone] Reason for Visit * Reason Onset Date Comments Nurse Triage 05/08/2023 Encounter Details Date Type Department Care Team ([facility] st Contact Info) Description 05/08/2023 Telephone [facility] CHC MED & PEDS [address] [place] [address] Kathy Fraley MD [address] [place] [address] Nurse Triage Social History Tobacco Use Types Packs/Day Years Used Date Smoking Tobacco: Every Day Cigarettes 0.5 49.2 Started: 08/04/1975 Passive Smoke Exposure: Current Smokeless Tobacco: Never Depression Answer Date Recorded Patient Health Questionnaire-2 Score 0 01/22/2023 Sex and Gender Information Value Date Recorded Sex Assigned at Male 06/03/2022 10:33 AM EDT Legal Sex Male 10:33 AM EDT Gender Identity Male 06/03/2022 10:33 AM EDT Sexual Orientation Straight 06/03/2022 10 :33 AM EDT documented as of this encounter Miscellaneous Notes * Telephone Encounter - Jailyn Davidson RN - 05/08/2023 2:28 PM EDT Called pt back, triaged this morning. Pt states needs new glasses due to changing eye sight. Pt denies severe symptoms and wants to be referred to [facility] in [place]. Will task to PCP. Pt has appt scheduled with PCP on 05/21. Pt understands and agrees with plan. * Telephone Encounter - Mely Leijaz - 05/08/2023 11:57 AM EDT Symptom: Vision Change (blurry) Outcome: Schedule an urgent appointment (within 1 hour) or talk to a nurse or provider soon Reason: Getting worse The caller accepted this outcome documented in this encounter Plan of Treatment Upcoming Encounters Date Type Department Care Team (Late st Contact Info) Description 01/19/2025 9:45 AM EDT Office Visit [facility] MED & PEDS [address] [place] [address] Kathy Farley MD [address] [place] [address] documented as of this encounter Visit Diagnoses Not on filedocumented in this encounter Care Teams Bridge Engineer Relationship Specialty Start Date End Date Kathy Farley MD [address] [place] [address] PCP - General Internal Medicine 01/01/18 Ilana Hough RN [address] [place] [address] Manager VoiceCattle Examiner 05/04/24 09/01/24 Ilana Hough RN [address] [place] [address] Manager VoiceCattle Examiner 09/07/24 [facility] 09/18/22 documented as of this encounter
--- OUTSIDE RECORDS SUMMARY | 2024-10-13 13:12 | XMS_ITS | Encounter Summary ---
Author Organization [employer] Address [address] [facility] 7t [place] [address] Care Team Providers Care Cleat Layer Name Role Phone Kathy Farley MD Primary Care Provider [phone] Ilana Hough RN Unavailable [phone] Ilana Hough RN Unavailable [phone] Reason for Visit * Reason Onset Date Comments Med Refill 08/14/2023 Encounter Details Date Type Department Care Team (Late st Contact Info) Description 08/14/2023 Refill [facility] MED & PEDS [address] [place] [address] Kathy Farley MD [address] [place] [address] Chronic low back pain, unspecified back pain [...] encounter Miscellaneous Notes * Telephone Encounter - Lety Aragon RN - 08/14/2023 3:12 PM EST TC to pt to schedule GERMAN TUTOR appt. Pt asked for a f/u visit with PCP first. C/o severe L knee pain. Appt scheduled for 09/10/23 @ 10:30. * Telephone Encounter - Teresa Hough - 08/14/2023 10:31 AM EST TC from pt requesting medication refill. Was given medication on 07/24 OV Medications needing refill : traMADol (Ultram) 50 MG tablet To be sent to: [facility] - [place], [place] - [id number] - [place] - [address] documented in this encounter Plan of Treatment Upcoming Encounters Date Type Department Care Team (Late st Contact Info) Description 01/19/2025 9:45 AM EDT Office Visit [facility] CHC MED & PEDS [address] [place], [place] [phone] Kathy Farley MD [address] [place] [address] documented as of this encounter Visit Diagnoses Diagnosis Chronic low back pain, unspecified back pain laterality, unspecified whether sciatica present documented in this encounter Care Teams Cleat Layer Relationship Specialty Start Date End Date Kathy Farley MD [address] [place] [address] PCP - General Internal Medicine 01/01/18 Ilana Hough RN [address] [place] [address] Entry Level BuyerHose Inspector 05/04/24 09/01/24 Ilana Hough RN [address] [place] [address] Entry Level BuyerHose Inspector 09/07/24 [facility] 09/18/22 documented as of this encounter
--- OUTSIDE RECORDS SUMMARY | 2024-10-13 13:12 | XMS_ITS | Encounter Summary ---
Author Organization [email or web address] Address [address] [facility] 7t [place] [address] Care Team Providers Care Environmental Services Manager Name Role Phone Kathy Farley MD Primary Care Provider [phone] Ilana Hough RN Unavailable [phone] Ilana Hough RN Unavailable [phone] Reason for Visit * Reason Onset Date Comments Reschedule 06/13/2023 Encounter Details Date Type Department Care Team ([facility] st Contact Info) Description 06/13/2023 Telephone [facility] MEDICINE [address] [place] [address] Kathy Farley MD [address] [place] [address] Reschedule Social History Tobacco Use Types Packs/Day [...] encounter Miscellaneous Notes * Telephone Encounter - Itzel Sargent - 06/13/2023 12:34 PM EST Tc from pt requesting r/s 06/13/2023 SOS appt. documented in this encounter Plan of Treatment Upcoming Encounters Date Type Department Care Team (Late st Contact Info) Description 01/19/2025 9:45 AM EDT Office Visit [facility] MED & PEDS [address] [place] [address] Kathy Farley MD [address] [place] [address] documented as of this encounter Visit Diagnoses Not on filedocumented in this encounter Care Teams Environmental Services Manager Relationship Specialty Start Date End Date Kathy Farley MD [address] [place] [address] PCP - General Internal Medicine 01/01/18 Ilana Hough RN [address] [place] [address] Application PackagerCyber Defense Forensics Analyst 05/04/24 09/01/24 Ilana Hough RN [address] [place] [address] Application PackagerCyber Defense Forensics Analyst 09/07/24 [facility] 09/18/22 documented as of this encounter
--- OUTSIDE RECORDS SUMMARY | 2024-10-13 13:12 | XMS_ITS | Encounter Summary ---
Author Organization [email or web address] Address [address] [facility] [address]t [place] [address] Care Team Providers Care Core Java Software Engineer Name Role Phone Kathy Farley MD Primary Care Provider [phone] Ilana Hough RN Unavailable [phone] Ilana Hough RN Unavailable [phone] Reason for Visit * Reason Onset Date Comments Med Refill 08/14/2023 Encounter Details Date Type Department Care Team ([facility] st Contact Info) Description 08/14/2023 Telephone [facility] CHC MED & PEDS [address] [place] [address] Kathy Farley MD [address] [place] [address] Med Refill Social History Tobacco Use Types [...] encounter Miscellaneous Notes * Telephone Encounter - Howie Tian - 08/15/2023 9:45 AM EST Tc from patient requesting status in regards to the message below * Telephone Encounter - Teresa Hough - 08/14/2023 10:30 AM EST TC from pt requesting medication refill. Medications needing refill : gabapentin (Neurontin) 600 MG tablet To be sent to: [facility] - [place], [place] - [id number] [place] - [address] documented in this encounter Plan of Treatment Upcoming Encounters Date Type Department Care Team (Late st Contact Info) Description 01/19/2025 9:45 AM EDT Office Visit [facility] MED & PEDS [address] [place] [address] Kathy Farley MD [address] [place] [address] documented as of this encounter Visit Diagnoses Not on filedocumented in this encounter Care Teams Core Java Software Engineer Relationship Specialty Start Date End Date Kathy Farley MD [address] [place] [address] PCP - General Internal Medicine 01/01/18 Ilana Hough RN 505 [place] [address] Shuttle Truck DriverGlobal Sales Manager 05/04/24 09/01/24 Ilana Hough RN [address] [facility] [place] [address] Shuttle Truck DriverGlobal Sales Manager 09/07/24 [facility] 09/18/22 documented as of this encounter
--- OUTSIDE RECORDS SUMMARY | 2024-10-13 13:12 | XMS_ITS | Encounter Summary ---
Author Organization [employer] Address [address] [facility] 7[address] [place] [address] Care Team Providers Care Pigs Feet Finisher Name Role Phone Kathy Farley MD Primary Care Provider [phone] Ilana Hough RN Unavailable [phone] Ilana Hough RN Unavailable [phone] Reason for Visit * Reason Onset Date Comments Durable Medical Equipment 09/02/2023 Encounter Details Date Type Department Care Team (Late st Contact Info) Description 09/02/2023 Telephone [facility] MEDICINE [address] [place] [address] Kathy Farley MD [address] [place] [address] Durable Medical Equipment Social History Tobacco Use Types Packs/Day Years [...] encounter Miscellaneous Notes * Telephone Encounter - Yaquelin Hoffmann LPN - 09/04/2023 2:49 PM EST Please review message below and advise , * Telephone Encounter - Itzel Sargent - 09/02/2023 2:13 PM EST Tc from pt requesting DME on Shower Chair due to multiple falls. documented in this encounter Plan of Treatment Upcoming Encounters Date Type Department Care Team ([facility] st Contact Info) Description 01/19/2025 9:45 AM EDT Office Visit [facility] CHC MED & PEDS [address] [place] [address] Kathy Farley MD [address] [place] [address] documented as of this encounter Visit Diagnoses Not on filedocumented in this encounter Care Teams Pigs Feet Finisher Relationship Specialty Start Date End Date Kathy Farley MD [address] [place] [address] PCP - General Internal Medicine 01/01/18 Ilana Hough RN [address] [place] [address] Pattern AttendantData Warehouse Consultant 05/04/24 09/01/24 Ilana Hough RN [address] [place] [address] Pattern AttendantData Warehouse Consultant 09/07/24 [facility] 09/18/22 documented as of this encounter
--- OUTSIDE RECORDS SUMMARY | 2024-10-13 13:12 | XMS_ITS | Encounter Summary ---
Author Organization [employer] [facility] Address [address] [facility] [address] [place] [address] Care Team Providers Care Celery Wrapper Name Role Phone Kathy Farley MD Primary Care Provider [phone] Ilana Hough RN Unavailable [phone] Ilana Hough RN Unavailable [phone] Reason for Referral * Consultation (Routine) - Closed Specialty Diagnoses / Procedures Referred By Roseanna judd Referred To Contact Occupational Therapy Diagnoses Sprain of right shoulder, unspecified shoulder sprain type, initial encounter Kathy Farley MD [address] [place] [address] Phone: tel: fax: [facility] [address] Phone: tel: fax: Referral ID Status Reason Start Date Expiration Date V isits Requested Visits Authorized [id number] Closed Specialty Services Required 05/27/2024 05/27/2025 1 1 * Consultation (Routine) - Closed Specialty Diagnoses / Procedures Referred By Roseanna judd Referred To Contact Oral Surgery Diagnoses Closed fracture of nasal bone, initial encounter Closed fracture of left zygomatic arch with routine healing, subsequent encounter Kathy Farley MD [address] [place] [address] Phone: tel: fax: Referral ID Status Reason Start Date Expiration Date V isits Requested Visits Authorized [id number] Closed Specialty Services Required 05/26/2024 05/26/2025 1 1 * Consultation (Routine) - Closed Specialty Diagnoses / Procedures Referred By Roseanna judd Referred To Contact Physical Therapy Diagnoses Cerebral hemorrhage (CMS/HCC) Post-traumatic headache, not intractable, unspecified chronicity pattern Kathy Farley MD [address] [place] [address] Phone: tel: fax: Referral ID Status Reason Start Date Expiration Date V isits Requested Visits Authorized [id number] Closed Specialty Services Required 05/26/2024 05/26/2025 1 1 * Consultation (Urgent) - Closed Specialty Diagnoses / Procedures Referred By Roseanna judd Referred To Contact Diagnoses Cerebral hemorrhage (CMS/HCC) Post-traumatic headache, not intractable, unspecified chronicity pattern Epistaxis Kathy Farley MD [address] [place] [address] Phone: tel: fax: & Maxillofacial Surgery, Facial Cosmetic [address] [facility] [address] [place], [place] Phone: tel: fax: Referral ID Status Reason Start Date Expiration Date V isits Requested Visits Authorized [id number] Closed Specialty Services Required 05/21/2024 05/21/2025 1 1 Encounter Details Date Type Department Care Team (Late st Contact Info) Description 05/21/2024 Orders Only [facility] CHC MED & PEDS [address] [place] [address] Kathy Farley MD [address] [place] [address] Cerebral hemorrhage (CMS/HCC) (Primary Dx); Post-traumatic headache, not intractable, unspecified chronicity pattern; Epistaxis; Closed fracture of nasal bone, initial encounter; Closed fracture of left zygomatic arch with routine healing, subsequent encounter; Sprain of right shoulder, unspecified shoulder sprain type, initial encounter Social History Tobacco Use Types [...] Upcoming Encounters Date Type Department Care Team ([facility] st Contact Info) Description 01/19/2025 9:45 AM EDT Office Visit [facility] CHC MED & PEDS [address] [place], [place] [phone] Kathy Farley MD [address] [place], [place] [phone] Scheduled Referrals Name Type Priority Associated Diagnoses Order Schedule Referral to Oral Maxillofacial Surgery Outpatient Referral Urgent Cerebral hemorrhage (CMS/HCC) Post-traumatic headache, not intractable, unspecified chronicity pattern Epistaxis Expected: 05/21/2024 (Approximate), Expires: 05/21/2025 Referral to Physical Therapy Outpatient Referral Routine Cerebral hemorrhage (CMS/HCC) Post-traumatic headache, not intractable, unspecified chronicity pattern Expected: 05/26/2024 (Approximate), Expires: 05/26/2025 Referral to Oral Maxillofacial Surgery Outpatient Referral Routine Closed fracture of nasal bone, initial encounter Closed fracture of left zygomatic arch with routine healing, subsequent encounter Expected: 05/26/2024 (Approximate), Expires: 05/26/2025 Referral to Occupational Therapy Outpatient Referral Routine Sprain of right shoulder, unspecified shoulder sprain type, initial encounter Expected: 05/27/2024 (Approximate), Expires: 05/27/2025 documented as of this encounter Visit Diagnoses Diagnosis Cerebral hemorrhage (CMS/HCC)- Primary Intracerebral hemorrhage Post-traumatic headache, not intractable, unspecified chronicity pattern Epistaxis Closed fracture of nasal bone, initial encounter Closed fracture of left zygomatic arch with routine healing, subsequent encounter Sprain of right shoulder, unspecified shoulder sprain type, initial encounter documented in this encounter Care Teams Celery Wrapper Relationship Specialty Start Date End Date Kathy Farley MD [address] [place] [address] PCP - General Internal Medicine 01/01/18 Ilana Hough RN [address] [place] [address] EnrollerRefuse Laborer 05/04/24 09/01/24 Ilana Hough RN [address] [place] [address] EnrollerRefuse Laborer 09/07/24 [facility] 09/18/22 documented as of this encounter
--- OUTSIDE RECORDS SUMMARY | 2024-10-13 13:12 | XMS_ITS | Encounter Summary ---
Author Organization [employer] [facility] Address [address] [facility] 7t [place] [address] Care Team Providers Care Early Morning Babysitter Name Role Phone Kathy Farley MD Primary Care Provider [phone] Ilana Hough RN Unavailable [phone] Ilana Hough RN Unavailable [phone] Encounter Details Date Type Department Care Team (Late Contact Info) Description 05/08/2023 Orders Only [facility] MED & PEDS [address] [place] [address] Kathy Farley MD [address] [place], [place] [phone] Blurry vision, bilateral (Primary Dx) Social History Tobacco Use Types [...] 9:45 AM EDT Office Visit [facility] MED & PEDS [address] [place], [place] [phone] Kathy Farley MD [address] [place] [address] documented as of this encounter Visit Diagnoses Diagnosis Blurry vision, bilateral- Primary Other specified visual disturbances documented in this encounter Care Teams Early Morning Babysitter Relationship Specialty Start Date End Date Kathy Farley MD [address] [place] [address] PCP - General Internal Medicine 01/01/18 Ilana Hough RN [address] [place] [address] Car Ferry CaptainCattle Driver 05/04/24 09/01/24 Ilana Hough RN [address] [place] [address] Car Ferry CaptainCattle Driver 09/07/24 [facility] 09/18/22 documented as of this encounter
--- OUTSIDE RECORDS SUMMARY | 2024-10-13 13:12 | XMS_ITS | Encounter Summary ---
Author Organization [employer] Address [address] [facility] [address] [facility] [address] [place] [address] Care Team Providers Care Armored Car Messenger Name Role Phone Kathy Farley MD Primary Care Provider [phone] Ilana Hough RN Unavailable [phone] Ilana Hough RN Unavailable [phone] Encounter Details Date Type Department Care Team (Late st Contact Info) Description 07/11/2023 Orders Only [facility] CHC MED & PEDS [address] [place] [address] Kathy Farley MD [address] [place] [address] 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ee (Primary Dx) Social History Tobacco Use [...] Description 01/19/2025 9:45 AM EDT Office Visit [facility] CHC MED & PEDS [address] [place] [address] Kathy Farley MD [address] [place] [address] documented as of this encounter Visit Diagnoses Diagnosis 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ee- Primary documented in this encounter Care Teams Armored Car Messenger Relationship Specialty Start Date End Date Kathy Farley MD [address] [place] [address] PCP - General Internal Medicine 01/01/18 Ilana Hough RN [address] [place] [address] Network Control Operators SupervisorGlass Tinter 05/04/24 09/01/24 Ilana Hough RN [address] [place] [address] Network Control Operators SupervisorGlass Tinter 09/07/24 [facility] 09/18/22 documented as of this encounter
--- OUTSIDE RECORDS SUMMARY | 2024-10-13 13:12 | XMS_ITS | Encounter Summary ---
Author Organization [employer] Address [address] [facility] 7[address] [place] [address] Care Team Providers Care Promotion Specialist Name Role Phone Kathy Farley MD Primary Care Provider [phone] Ilana Hough RN Unavailable [phone] Ilana Hough RN Unavailable [phone] Reason for Visit * Reason Comments Med Refill Encounter Details Date Type Department Care Team ([facility] st Contact Info) Description 05/13/2023 Refill [facility] CHC MED & PEDS [address] [place] [address] Kathy Farley MD [address] [place] [address] Chronic low back pain, unspecified back pain laterality, unspecified whether sciatica present Social History Tobacco Use Types Packs/Day Years Used Date Smoking Tobacco: Every Day Cigarettes 0.5 49.2 Started: 08/04/1975 Passive Smoke Exposure: Current Smokeless Tobacco: Never Housing Stability Answer Date Recorded What is your housing situation today? I have janett díaz 05/13/[address] you li ve. Do you have problems with any of the following? None of the above 05/13/2023 Food Insecurity Answer Date Recorded Within the past 12 months, y ou worried that your food would run out before you got money to buy more: Never True 05/13/2023 Within the past 12 months,th e food you bought just didn't last and you didn't have enough money to get more: Never True 05/2023 Transportation Answer Date Recorded In the past 12 months, has l ack of transportation kept you from medical appts, meetings, work or from getting things needed for daily living? No 05/13/2023 Utilities Answer Date Recorded In the past 12 months, has t he electric, gas, oil or water company threatened to shut off services in your home? No 05/13/2023 Depression Answer Date Recorded Patient Health Questionnaire-2 [...] [facility] MED & PEDS [address] [place] [address] Kathy Farley MD [address] [place] [address] documented as of this encounter Visit Diagnoses Diagnosis Chronic low back pain, unspecified back pain laterality, unspecified whether sciatica present documented in this encounter Care Teams Promotion Specialist Relationship Specialty Start Date End Date Kathy Farley MD [address] [place] [address] PCP - General Internal Medicine 01/01/18 Ilana Hough RN [address] [place] [address] Core WinderLawn Caretaker 05/04/24 09/01/24 Ilana Hough RN [address] [place] [address] Core WinderLawn Caretaker 09/07/24 [facility] 09/18/22 documented as of this encounter
[2024-10-13 14:23] LABS: Appearance Urine Clear; Color Urine Yellow; Glucose Urine UA Negative (Negative); Leukocyte Esterase Urine Negative (Negative); Nitrite Urine Negative (Negative); Urine Blood Negative (Negative); Urine Ketones Trace mg/dL (Negative); Urine Protein Negative (Neg-Trace)
[2024-10-13 14:28] LABS: Bacteria Urine None Seen (None Seen); Hyaline Casts Urine 0-2 /LPF (0-2); RBC Urine 0-2 /HPF (0-2); Squamous Epithelial Cell Urine 0-2 /HPF (0-2); WBC Urine 0-5 /HPF (0-5)
[2024-10-13 14:52] LABS: Anion Gap 13 (12-20); Blood Urea Nitrogen 5 mg/dL (9-16); Calcium 9.9 mg/dL (8.4-10.2); Carbon Dioxide 26 mmol/L (22-29); Chloride 105 mmol/L (96-108); Estimated Average Glucose 103 mg/dL; Estimated Glomerular Filt Rate > 60; Glucose Random 78 mg/dL (60-115); Hemoglobin A1C 139.4218 umol/L; Hemoglobin A1c % 5.2 % (<6.0); Potassium 4.2 mmol/L (3.3-5.1); Sodium 140 mmol/L (135-145)
[2024-10-13 15:12] LABS: PSA,Total (Free>4and<10) 0.98 ng/mL (0.00-4.00)
== END 2024-10-13 11:13 | disposition home or self-care (01) ==
LOC: HO.CHCLDS 11:12
PROVIDERS: Visit Provider Internal Medicine
DX: N39.498 Other specified urinary incontinence (principal)
CPT/HCPCS: 36415; 80048; 81001; 83036; 84153

== ENCOUNTER 2025-03-22 18:48 | Outpatient (REF) | payer MEDICAID, SELFPAY ==
--- OUTSIDE RECORDS SUMMARY | 2025-03-22 18:53 | XMS_ITS | Clinical Summary ---
Author Organization [facility] Address [address] [place] [address] Phone Care Team Providers Care Tax Form Preparer Name Role Phone Kathy Farley MD Primary Care Provider [phone] Surgical History Surgery Date Site/Laterality Comments HAND SURGERY Right PROCEDURE: HISTORICAL HAND SURGERY; COMMENT: 3 times KNEE ARTHROSCOPY 01/14/2022 Left PROCEDURE: [place] ARTHROSCOPY AID [place] SPINE&/FX KNEE W/O FIXJ; [...] 2 - PCV) 07/20/2013 07/20/2012 RSV Immunization Adult Patients (1 - Risk 60-74 years 1-dose series) 2021 Cholesterol Screening (Lipid Panel) 07/07/2022 Colorectal Cancer Screening: Colonoscopy 07/07/2022 HIV Screening 07/07/2022 Hepatitis C Screening 07/07/2022 Lung Cancer Screening (Low Dose CT) 07/07/2022 Social Influencers of Health Screening 07/07/2022 Hypertension/CHF/CAD Annual BMP Blood Test 09/02/2023 COVID-19 Vaccine ( season) 2024 05/29/2023, 07/23/2022, 06/26/2021, Additional history exists Depression Screening 08/04/2024 Influenza Vaccine (#1) 2025 9, 07/03/2017, 06/26/2015, Additional history exists DTaP,Tdap,and [...] age to complete this topic Meningococcal B Vaccine Aged Out No l onger eligible based on patient's age to complete this topic RSV Immunization Patients Under 20 months Aged Out No longer eligible based on patient's age to complete this topic Varicella Vaccines Aged Out No longer eligible based on patient's age to complete this topic Insurance MEDICAID - [place] Care Teams Tax Form Preparer Relationship Specialty Start Date End Date Kathy Farley MD [address] [place], [place] PCP - General 10/04/22
[2025-03-22 19:34] LABS: Resp Syncy Virus RNA Qual PCR NEGATIVE (Negative); SARS COV2 PCR INHOUSE NEGATIVE (Negative)
== END 2025-03-22 18:49 | disposition home or self-care (01) ==
LOC: HO.HHCLNP 18:48
PROVIDERS: Visit Provider Internal Medicine
DX: R05.9 Cough, unspecified (principal)
CPT/HCPCS: 87637

== ENCOUNTER 2025-06-15 10:35 | Outpatient (REF) | payer MEDICAID, SELFPAY ==
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
--- OUTSIDE RECORDS SUMMARY | 2025-06-15 12:41 | XMS_ITS | Encounter Summary ---
Author Organization [employer] Address [address] [facility] 7t [place] [address] Care Team Providers Care Shipping And Receiving Name Role Phone Kathy Farley MD Primary Care Provider [phone] Reason for Visit * Reason Comments Med Refill Encounter Details Date Type Department Care Team ([facility] Contact Info) Description 03/17/2025 Refill [facility] CHC MED & PEDS [address] [place] [address] Kathy Farley MD [address] [place] [address] Muscle cramps; Chronic low back pain, unspecified [...] Info) Description 07/04/2025 10:00 AM EST Telemedicine [facility] CHC MED & PEDS [address] [place] [address] Jody Dalton, PharmD [address] [place] [address] documented as of this encounter Visit Diagnoses Diagnosis Muscle cramps Chronic low back pain, unspecified back pain laterality, unspecified whether sciatica present documented in this encounter Additional Health Concerns Assessment Noted Time PHQ-9 Depression Total Score: 0 10/14/19 25 10:00 AM EDT documented as of this encounter Care Teams Shipping And Receiving Relationship Specialty Start Date End Date Kathy Farley MD [address] [place] [address] PCP - General Internal Medicine 01/01/18 [facility] 09/18/22 documented as of this encounter
--- OUTSIDE RECORDS SUMMARY | 2025-06-15 12:41 | XMS_ITS | Encounter Summary ---
Author Organization [employer] Address [address] [facility] 7t [place] [address] Care Team Providers Care Beader Tender Name Role Phone Kathy Farley MD Primary Care Provider [phone] Ilana Hough RN Unavailable [phone] Ilana Hough RN Unavailable [phone] Encounter Details Date Type Department Care Team (Late st Contact Info) Description 04/07/2024 Orders Only [facility] CHC MED & PEDS [address] [place], [place] [phone] Kathy Farley MD [address] [place], [place] [phone] Screening for colon cancer (Primary Dx) Social [...] Upcoming Encounters Date Type Department Care Team ([facility] st Contact Info) Description 07/04/2025 10:00 AM EST Telemedicine [facility] MED & PEDS [address] [place] [address] Jody Dalton, PharmD [address] [place] [address] documented as of this encounter Visit Diagnoses Diagnosis Screening for colon cancer- Primary Special screening for malignant neoplasms, colon documented in this encounter Care Teams Beader Tender Relationship Specialty Start Date End Date Kathy Farley MD [address] [place] [address] PCP - General Internal Medicine 01/01/18 Ilana Hough RN [address] [place] [address] Research AideCentral Station Operator 05/04/24 09/01/24 Ilana Hough RN [address] [place] [address] Research AideCentral Station Operator 09/07/24 12/07/[address] [facility] 09/18/22 documented as of this encounter
--- OUTSIDE RECORDS SUMMARY | 2025-06-15 12:41 | XMS_ITS | Encounter Summary ---
Author Organization [employer] Address [address] [facility] 7t [place] [address] Care Team Providers Care Pedigree Researcher Name Role Phone Kathy Farley MD Primary Care Provider [phone] Reason for Visit * Reason Onset Date Comments Chart Prep 06/14/2025 Encounter Details Date Type Department Care Team ([facility] st Contact Info) Description 06/14/2025 Telephone [facility] CHC MED & PEDS [address] [place] [address] Katyh Farley MD [address] [place] [address] Chart Prep Social History Tobacco Use Types Packs/Day Years [...] encounter Miscellaneous Notes * Telephone Encounter - Kirsty Jeffries [place] - 06/14/2025 3:27 PM EST Chart Prep Labs: not applicable Images: cancel Referrals: appointment pending Vaccines due: Covid, Flu, PCV20, and Tdap Screenings: colonoscopy and Lung CA screening Overdue care gaps: Tobacco documented in this encounter Plan of Treatment Upcoming Encounters Date Type Department Care Team (Late st Contact Info) Description 07/04/2025 10:00 AM EST Telemedicine [facility] MED & PEDS [address] [place] [address] Jody Dalton, PharmD [address] [place] [address] documented as of this encounter Visit Diagnoses Not on filedocumented in this encounter Additional Health Concerns Assessment Noted Time PHQ-9 Depression Total Score: 8 04/07/20 25 11:58 AM EDT documented as of this encounter Care Teams Pedigree Researcher Relationship Specialty Start Date End Date Kathy Farley MD [address] [place] [address] PCP - General Internal Medicine 01/01/18 [facility] 09/18/22 documented as of this encounter
--- OUTSIDE RECORDS SUMMARY | 2025-06-15 12:41 | XMS_ITS | Encounter Summary ---
Author Organization [employer] Address [address] [facility] 7t [place] [address] Care Team Providers Care Resistor Winder Name Role Phone Kathy Farley MD Primary Care Provider [phone] Ilana Hough RN Unavailable [phone] Ilana Hough RN Unavailable [phone] Encounter Details Date Type Department Care Team ([facility] Contact Info) Description 05/04/2024 Orders Only [facility] [address] [place] [address] Provider, MD Erna Social History Tobacco Use [...] Upcoming Encounters Date Type Department Care Team ([facility] st Contact Info) Description 07/04/2025 10:00 AM EST Telemedicine [facility] CHC MED & PEDS [address] [place], [place] [phone] Jody Dalton, PharmD [address] [place] [address] documented as of this encounter Procedures Procedure [...] on filedocumented in this encounter Care Teams Resistor Winder Relationship Specialty Start Date End Date Kathy Farley MD [address] [place] [address] PCP - General Internal Medicine 01/01/18 Ilana Hough RN [address] [place], [place] [phone] Lead Security OfficerBox Nailer 05/04/24 09/01/24 Ilana Hough RN [address] [place] [address] Lead Security OfficerBox Nailer 09/07/24 12/07/24 [facility] 09/18/22 documented as of this encounter
--- OUTSIDE RECORDS SUMMARY | 2025-06-15 12:41 | XMS_ITS | Encounter Summary ---
Author Organization [employer] Address [address] [facility] 7t [place] [address] Care Team Providers Care Cad Operator Name Role Phone Kathy Farley MD Primary Care Provider [phone] Ilana Hough RN Unavailable [phone] Reason for Visit * Reason Comments Med Refill Encounter Details Date Type Department Care Team ([facility] st Contact Info) Description 09/02/2024 Refill [facility] CHC MED & PEDS [address] [place] [address] Kathy Farley MD [address] [place] [address] Chronic pain of left knee Social History [...] Info) Description 07/04/2025 10:00 AM EST Telemedicine [facility] CHC MED & PEDS [address] [place] [address] Jody Dalton, PharmD [address] [place] [address] documented as of this encounter Visit Diagnoses Diagnosis Chronic pain of left knee documented in this encounter Care Teams Cad Operator Relationship Specialty Start Date End Date Kathy Farley MD [address] [place] [address] PCP - General Internal Medicine 01/01/18 Ilana Hough RN [address] [place] [address] Refinery Process EngineerAgricultural Scientist 09/07/24 12/07/24 [facility] 09/18/22 documented as of this encounter
--- OUTSIDE RECORDS SUMMARY | 2025-06-15 12:41 | XMS_ITS | Data Portability ---
Author Organization [facility], [facility] Address [address] [facility] [address] [place] [address] Assessment Encounter Date Assessment Date Assessment LastModified [...] Time Gastroesophage al reflux disease without esophagitis 026250005 Active 2023 Zoie rashid [place] - [facility] 10:30:59 Persistent cough 415700922 Active 2023 Zoie rashid [place] - [facility] 4 10:31:13 Feeling of lump in throat 663211855 Active 2023 Zoie rashid [place] - [facility] 4 10:31:29 Essential hypertension 41903951 Active 2023 Zoie rashid [place] [facility] 4 10:31:58 Allergic rhinitis 45356522 Active 2023 Zoie rashid [facility] 4 10:32:13 Problem Notes None recorded. Procedures Surgical History Date Name Laterality Status Provider Name and Address Organization Details Recorded Time 04/16/2024 FOL_Reflux _JMS completed Zoie Roque [place] - [facility] 04/16/2024 10:49:36 Imaging Results None recorded. [...] Not Available No t Available Jessy Bar [facility] spacer USE as instructe d active Not Available Not Available No t Available Vitals Date Recorded Body height Body weight Provider Name and Address Organization Details Last Updated DateTime 04/16/2024 162.56 cm 98892.41 g Amber Camargo [place] - [facility] 04/16/2024 10:00:23 Social History None recorded. Functional Status None recorded. Mental Status None recorded. Family History Nothing Reported. Medical History Condition Response Arthritis Y Hypertension Y High Cholesterol Y Past Encounters Encounter ID Performer Location Encounter Start Date Encounter Closed Date Diagnosis/Indication Diagnosis SNOMED-CT Code Diagnosis ICD10 Code Diagnosis IMO Codes Diagnosis Note [id number] ZOIE ROQUE PA-C [facility] [address] [address] 04/16/2024 09:44:09 04/16/2024 10:29:05 Gastroesophageal reflux disease without esophagitis 478369166 K21.9 Persistent cough 1999835 02 R05.3 Feeling of lump in throat 040745509 R09.89 Health Concerns Section Related Observation LastModified by Organization Detai ls LastModified Time None Recorded Concern Status LastModified by Organization Details LastModified Time None Recorded Advance Directives Directive None Recorded Payers Insurance Date Sequence Insurance Name Policy Number Policy Ching Covered Member ID Ching Member ID Guarantor Name 04/16/2024 1 [place] [facility] PL[facility] Mukesh Denton [id number] Mukesh Denton Notes Date Note Type Note Provider Name and Address Organization Details Recorded Time 04/16/2024 text/html ROS as noted in the HPI 63 year old male presents to the [...] night sweats or hemoptysis. YASMEEN HOLLIS MD [address] [place] [address], [place], [address], [facility] - [facility] 04/17/2024 10:33:49
--- OUTSIDE RECORDS SUMMARY | 2025-06-15 12:41 | XMS_ITS | Clinical Summary ---
Author Organization [employer] Address [address] [place] [address] [address] [place] [address] Care Team Providers Care It Security Consultant Name Role Phone Kathy Farley MD Primary Care Provider [phone] Allergies Active Allergy Reactions Criticality Noted Date [...] 1 hour before meals And at bedtime 022 Active Nutritional Supplements (Ensure Nutrition Shake) liquid Take8 fluid oz 1-3 times day with meals or snacks. for weight loss 021 Active aspirin 81 MG EC tablet Take [...] areas of skin 30 g 023 Active Spacer/Aero-Holdin g Chambers (AeroChamber MV) inhalerIndications :Subacute cough Use as instructed 1 each 2 024 Active DULoxetine (Cymbalta) [address] capsule Take 1 capsule by mouth 2 times daily. 024 Active magnesium 30 MG tabletIndications: Cramp in muscle,Weakness of left lower extremity Take 1 tablet (30 mg) by mouth 2 times daily. 60 tablet 1 025 2025 Active ezetimibe (Zetia) 10 MG tabletIndications: Hypercholesterolem ia Take 1 tablet (10 mg) by mouth Once per day. 30 tablet 11 025 2025 Active tiZANidine (Zanaflex) 4 MG tabletIndications: Muscle cramps Take 1 tablet (4 mg) by mouth every 6 (six) hours if needed for muscle spasms for up to 10 days. 30 tablet 025 Active folic acid (Folvite) 1 MG tabletIndications: History of alcohol abuse Take 1 tablet by mouth once daily 90 tablet 1 025 Active lisinopril 10 MG tabletIndications: Primary hypertension Take 1 tablet (10 mg) by mouth Once per day. 30 tablet 11 025 2025 Active amLODIPine (Norvasc) 5 MG tabletIndications: Essential (primary) hypertension TAKE 1 TABLET BY MOUTH ONCE DAILY IN THE MORNING 30 tablet 11 025 Active Diclofenac Sodium 1 % gelIndications:Acu te pain of right shoulder,Pain in left knee APPLY 2 grams TOPICALLY TO THE AFFECTED AREA two (2) times a day 100 g 5 025 Active atorvastatin (Lipitor) 40 MG tabletIndications: Hypercholesterolem ia TAKE 1 TABLET BY MOUTH ONCE DAILY 90 tablet 1 025 Active prazosin (Minipress) 2 MG capsuleIndications :Major depressive disorder, single episode, unspecified TAKE TWO CAPSULES BY MOUTH AT BEDTIME 60 capsule 2 025 Active celecoxib (CeleBREX) 200 MG capsuleIndications :Laceration of left leg excluding thigh, with complication, initial encounter,Arthriti s of carpometacarpal (CMC) joint of right thumb TAKE 1 CAPSULE BY MOUTH EVERY TWELVE HOURS 60 capsule 5 025 Active pantoprazole (ProtoNix) 40 MG EC tablet TAKE 1 TABLET BY MOUTH ONCE DAILY 90 tablet 025 Active albuterol 108 (90 Base) MCG/ACT inhalerIndications :Chronic cough Inhale 2 puffs every 6 (six) hours if needed for wheezing. 18 g 2 025 Active QUEtiapine (SEROquel) 100 MG tablet Take 1 tablet by mouth at bedtime as directed take at 930 pm Active zolpidem (Ambien) 10 MG tablet TAKE 1 TABLET BY MOUTH AT BEDTIME AT 10 IN THE EVENING FOR SLEEP Active lidocaine (Lidoderm) 5 % patchIndications:D orsalgia, unspecified APPLY 1 PATCH BY TOPICAL ROUTE ONCE DAILY (MAY WEAR UP TO 12HOURS.) 30 patch 025 Active fluticasone (Flonase) 50 MCG/ACT nasal sprayIndications:S ubacute cough SPRAY TWICE INTO EACH NOSTRIL ONCE DAILY. shake well gently. BEFORE first USE, prime pump. AFTER USE, clean TIP AND replace cap 48 g 025 Active gabapentin (Neurontin) 600 MG tabletIndications: Muscle cramps,Chronic low back pain, unspecified back pain laterality, unspecified whether sciatica present TAKE 1 TABLET BY MOUTH EVERY 8 HOURS 90 tablet 1 025 Active varenicline (Chantix) 1 MG tabletIndications: Cigarette smoker Take 1 tablet (1 mg) by mouth 2 times daily. Take with full glass of water. 180 tablet 1 025 Active acetaminophen (Tylenol Extra Strength) 500 MG tabletIndications: Sprain of right shoulder, unspecified shoulder sprain type, initial encounter Take 2 tablets (1,000 mg) by mouth every 6 (six) hours if needed for headaches. 30 tablet 024 2024 gabapentin (Neurontin) 600 MG tabletIndications: Muscle cramps,Chronic low back pain, unspecified back pain laterality, unspecified whether sciatica present TAKE 1 TABLET BY MOUTH EVERY 8 HOURS 90 tablet 1 025 2024 Discontinued Varenicline Tartrate, Starter, (Chantix Starting Month ) 0.5 MG X 11 & 1 MG X 42 tablet therapy packIndications:Vanessa heath smoker Take 0.5 mg by mouth in the morning for 3 days, THEN 0.5 mg 2 times daily for 4 days, THEN 1 mg 2 times daily for 21 days. 53 each 025 2024 Discontinued(D ose adjustment) Active Problems Problem Noted Date Diagnosed Date Acute otitis media 03/11/2025 Viral upper respiratory tract infection 03/11/20 Assessment & Plan (03/11/2025 12:19 PM EDT): Drink plenty of liquids and rest Functional urinary incontinence 10/14/2024 Subacute cough 01/20/2024 Assessment & Plan (01/20/2024 [...] ask for expedited visit -will send to [facility] for lung screening Cigarette smoker 11/15/2023 Overview [...] Encounters Date Type Department Care Team Description 06/15/2025 10:00 AM EST Office Visit [facility] [address] [place] [address] Kathy Farley MD Memory disturbance (Primary Dx); Primary hypertension; Hypercholesterolemia; Tinnitus of left ear; Screening examination for STI; Onychogryphosis 06/15/2025 Travel 06/14/2025 Telephone [facility] [address] [place] [address] Kathy Farley MD Chart Prep 06/07/2025 Patient Outreach [address] [address] Kathy Farley MD Pre-visit Planning (SDOH screening completed on 10/06/24 ) 06/02/[address] [address] Kathy Farley MD Care Coordination (Homecare Utilization Review) 05/31/2025 10:00 AM EDT Telemedicine [facility] [address] [place] [address] Jody Dalton, PharmD Cigarette smoker (Primary Dx) 05/31/2025 Travel 05/25/[address] [address] Kathy Farley MD 05/18/[address] [address] Kathy Farley MD Muscle cramps; Chronic low back pain, unspecified back pain laterality, unspecified whether sciatica present 05/13/2025 Telephone [facility] [address] [place] [address] Kathy Farley MD Chart Prep 05/11/2025 Refill [facility] [address] [place] [address] Kathy Farley MD Subacute cough 05/10/2025 10:00 AM EDT Telemedicine [facility] [address] [place] [address] Jody Dalton PharmD Cigarette smoker (Primary Dx) 05/10/2025 Travel 05/06/2025 Patient Outreach [facility] [address] [place] [address] Kathy Farley MD Pre-visit Planning (SDOH screening completed on 10/06/24) 04/27/2025 Telephone [facility] [address] [place] [address] Kathy Farley MD Medication Question 04/22/2025 Telephone [facility] [address] [place] [address] Kathy Farley MD call back reuqest 04/19/2025 9:30 AM EDT Telemedicine [facility] [address] [place] [address] Jody Dalton PharmD Cigarette smoker (Primary Dx) 04/19/2025 Refill [facility] [address] [place] [address] Kathy Farley MD Dorsalgia, unspecified 04/13/2025 Orders Only [facility] [address] [place] [address] Kathy Farley MD Chronic cough (Primary Dx); Cigarette smoker 04/13/2025 Telephone [facility] [address] [place] [phone] Kathy Farley MD 04/07/2025 10:45 AM EDT Office Visit [facility] [address] [place] [address] Kathy Farley MD Left leg pain (Primary Dx); Chronic cough; Cigarette smoker; Excessive ear wax, right; Primary hypertension 04/07/2025 Telephone [facility] [address] [place] [address] Kathy Farley MD Appointment Request 04/07/2025 Travel 04/06/2025 Telephone [facility] [address] [place] [address] Kathy Farley MD Chart Prep 03/31/2025 Patient Outreach [address] [address] Kathy Farley MD Care Coordination (W outreach for SDOH PT-1 and food needs-referral completed /) 03/30/2025 Patient Outreach [address] [address] Kathy Farley MD Pre-visit Planning (SDOH screening completed on 10/06/24) 03/29/[address] [address] Kathy Farley MD Med Refill 03/28/2025 Orders Only [facility] [address] [place] [address] Kathy Farley MD Cough in adult patient (Primary Dx) 03/28/2025 Results Follow-Up [facility] [address] [place] [address] Rohini Liu, DUNG XR Chest 2 Views 03/25/2025 Telephone [facility] [address] [place] [address] Kathy Farley MD Medication Question 03/25/[address] [address] Kathy Farley MD 03/23/[address] [address] Kathy Farley MD Lab Orders 03/22/2025 2:20 PM EDT Office Visit [facility] [address] [place] [address] Kathy Farley MD Cough in adult patient (Primary Dx); Laceration of left leg excluding thigh, with complication, initial encounter; Arthritis of carpometacarpal (CMC) joint of right thumb 03/22/2025 Travel 03/21/2025 Telephone [facility] [address] [place] [address] Kathy Farley MD Nurse Triage 03/17/2025 Refill [facility] [address] [place] [address] Kathy Farley MD Muscle cramps; Chronic low back pain, unspecified back pain laterality, unspecified whether sciatica present 03/17/2025 Refill [facility] [address] [place], [place] [phone] Kathy Farley MD Hypercholesterolemia; Major depressive disorder, single episode, unspecified; Muscle cramps; Chronic low back pain, unspecified back pain laterality, unspecified whether sciatica present 03/16/2025 Refill [facility] [address] [place] [address] Kathy Farley MD Muscle cramps; Chronic low back pain, unspecified back pain laterality, unspecified whether sciatica present from Last 3 Months Immunizations Immunization Administration Dates Next Due Hep B, adult [...] Mass Index 25.75 06/15/2025 9:55 AM EST Plan of Treatment Upcoming Encounters Date Type Department Care Team (Late st Contact Info) Description 07/04/2025 10:00 AM EST Telemedicine [facility] [address] [place] [address] Jody Dalton, PharmD [address] [place] [address] Health Maintenance Due Date Last Done Comments CT Colonography 1961 Colonoscopy 1961 Colorectal Cancer Screening 1961 FIT DNA/Cologuard 1961 FIT 1961 FOBT 1961 Sigmoidoscopy 1961 HIB Vaccines (1 of 1 - Risk 1-dose series) 07/25/1962 Meningococcal Vaccine (1 - Risk 2-dose series) 1963 Meningococcal B Vaccine (1 of 4 - Increased Risk) 1971 Hepatitis A Vaccines (1 of 2 - Risk 2-dose series) 1980 Lung Cancer Screening 2011 RSV Patients and Patients Aged 60 years or older (1 - Risk 50-74 years 1-dose series) 2011 Pneumococcal Vaccine: 50+ Years (2 of 2 - PCV) 07/20/2013 07/20/2012 SDOH Screening 10/06/2025 10/06/2024 Alcohol/Substance Use Screening 10/13/2025 10/13/2024 Influenza Vaccine (#1) 2026 9, 07/03/2017, 06/26/2015, Additional history exists Postponed from 04/04/2025 (Patient Refused) Depression Screening 04/07/2026 04/07/2025, 04/07/20 25 Disability Screening 04/07/2026 04/07/2025 COVID-19 Vaccine ( season) 2026 05/29/2023, 07/23/2022, 06/26/2021, Additional history exists Postponed from 04/04/2025 (Patient Refused) Tobacco Screening 06/15/2026 06/15/2025 Lipid Panel 08/05/2029 08/05/2024 DTaP/Tdap/Td Vaccines (5 - Td or Tdap) 12/14/2029 12/15/2019, 06/03/2019, 09/23/2014, Additional history exists Hepatitis B Vaccines Completed 01/21/2017, 08/20/2016, 07/18/2016 Zoster Vaccines Completed 09/02/2019, 06/30/2019 HIV Screening Completed 08/05/2024 HPV Vaccines Aged Out No longer eligi [...] Procedure Name Priority Date/Time Associated Diagnosis Comments XR CHEST 2 VIEWS Routine 03/23/2025 Cough in adult patient POCT INFLUENZA A Routine 03/22/2025 4:36 PM EDT Cough in adult patient POCT INFLUENZA B Routine 03/22/2025 4:34 PM EDT Cough in adult patient POCT RAPID COVID ANTIGEN Routine 03/22/2025 4:32 PM EDT Cough in adult patient SARS COV2/INFLUENZA A/B AND RSV RNA QL NAAT Routine 03/22/2025 4:06 PM EDT Cough in adult patient LIPID PANEL, STANDARD Routine 08/05/2024 1:55 PM EST Hypertension, unspecified type HIV 1/2 ANTIGEN/ANTIBODY, FOURTH GENERATION W/RFL Routine 08/05/2024 11:35 AM EST Hypertension, unspecified type from Last 3 Months or Most Recently Relevant to Health Maintenance Results * XR Chest 2 Views (03/23/2025) Anatomical Region Laterality Modality Chest Radiographic Roberta ging Kathy Farley MD IMG XR PROCEDURES Final Res ult * POCT Rapid Influenza A OSOM (03/22/2025 4:36 PM EDT) [facility] Rapid Influenza A Ag Negative Negative, Indeterminate QC Media Lot # [id number] Lot# Expiration Date Swab Nasopharyngeal structure / Unknown 03/22/2025 4:36 PM EDT Kathy Farley MD POINT OF CARE TEST ENTER/ED IT ORDERABLES Final Result * POCT Rapid Influenza B OSOM (03/22/2025 4:34 PM EDT) [facility] Rapid Influenza B Ag Negative Negative, Indeterminate QC Media Lot # [id number] Lot# Expiration Date Swab 03/22/2025 4:34 PM EDT Kathy Farley MD POINT OF CARE TEST ENTER/ED IT ORDERABLES Final Result * POCT Rapid Covid-19 BinaxNOW (03/22/2025 4:32 PM EDT) [facility] Rapid COVID Ag Negative QC Media Lot # [id number] Lot# Expiration Date ,026 Swab 03/22/2025 4:32 PM EDT Kathy Farley MD POINT OF CARE TEST ENTER/ED IT ORDERABLES Final Result * SARS-CoV-2 RNA, Influenza A/B, and RSV RNA, Ql NAAT (03/22/2025 4:06 PM EDT) [facility] Influenza A PCR NEGATIVE Negative [facility] Influenza B PCR NEGATIVE Negative [facility] Resp Syncy Virus RNA Qual PCR NEGATIVE Negative [facility] SARS COV2 PCR NEGATIVE Negative [facility] Comment:All test results mus t be correlated with clinical findings.Negative results do not preclude SARS-CoV2, influenza Avirus, influenza B virus and/or RSV infectionand should not be used as the sole basis for treatment orother patient management decisions. Negative results must becombined with clinical observations, patient history, andepidemiological information.This test has not been evaluated for monitoring treatment ofinfection.This test has been authorized by the FDA under an EmergencyUse Authorization (EUA) for use by authorized laboratories.Testing performed on the [employer] GeneXpert utilizingreal-time RT-PCR.All SARS CoV2 and positive influenza A/B results arereported to [facility]. Swab Nasopharyngeal washings / Unknown 03/22/2025 4:06 PM EDT 03/22/2025 6:52 PM EDT Kathy Farley MD LAB MICROBIOLOGY - GENERAL ORDERABLES Final Result [facility] [address] [place] [phone] [phone] * (ABNORMAL) Lipid Panel, Standard (08/05/2024 1:55 PM EST) Triglycerides 122 <150 mg/dL [facility] Comment:Desirable Triglyceri de: less than 150 mg/dLBorderline High Triglyceride 150-199 mg/dLHigh Triglyceride: 200-499 mg/dLVery High Triglyceride: greater than or equal to 5OO mg/dL Cholesterol 225(H) <200 mg/dL [facility] Comment:Desirable Cholestero l: less than 200 mg/dLBorderline High Cholesterol: 200-239 mg/dLHigh Cholesterol: greater than 239 mg/dL LDL Cholesterol Calculated 148(H) <100 mg/dL [facility] Comment:Desirable LDL: less than 100 mg/dLNear Optimal/Above Optimal LDL: 110- 129 mg/dLBorderline High LDL: 130-159 mg/dLHigh LDL: 160-189 mg/dLVery High LDL: greater than or equal to 190 mg/dL HDL Cholesterol 53 >40 mg/dL [facility] Comment:Desirable HDL: great er than 40 mg/dL Note: This HDL assay may give artificially low results in patients with liver disease. Blood Venous blood specimen / Unknown 08/05/2024 1:55 PM EST 08/05/2024 1:57 PM EST us Kathy Farley MD LAB BLOOD ORDERABLES Final Result Performing Organization Address City/[facility]/ZIP Co de Phone Number [facility] [address] [place] [phone] * HIV-1/2 Antigen and Antibodies, Fourth Generation, with Reflexes (08/05/2024 11:35 AM EST) [facility] HIV AB/AG Nonreactive Nonreactive [facility] Comment:HIV-1 p24 Ag and/or HIV-1/HIV-2 Ab not detected.A test result that is nonreactive does not exclude thepossibility of exposure to or infection with HIV-1 and/orHIV-2. Nonreactive results in this assay for individualswith prior exposure to HIV-1 and/or HIV-2 may be due toantigen and antibody levels that are below the limit ofdetection of this assay.The [employer] HIV Ag/Ab Combo assay result andsupplemental assay results should be interpreted inconjunction with the patient's clinical presentation,history and other laboratory results. If the results areinconsistent with clinical evidence, additional testing issuggested to confirm the result. Blood Venous blood specimen / Unknown 08/05/2024 11:35 AM EST 08/05/2024 1:57 PM EST us Kathy Farley MD LAB BLOOD ORDERABLES Final Result Performing Organization Address [facility]/ZIP Co de Phone Number [facility] [address] [place] [address] [phone] from Last 3 Months or Most Recently Relevant to Health Maintenance Insurance C3 Care Teams It Security Consultant Relationship Specialty Start Date End Date Kathy Farley MD [address] [place] [phone] PCP - General Internal Medicine 01/01/18 [facility] 09/18/22
--- OUTSIDE RECORDS SUMMARY | 2025-06-15 12:41 | XMS_ITS | Encounter Summary ---
Author Organization [employer] Address [address] [facility] [address] [place] [address] Care Team Providers Care Fabrication Department Supervisor Name Role Phone Kathy Farley MD Primary Care Provider [phone] Ilana Hough RN Unavailable [phone] Ilana Hough RN Unavailable [phone] Encounter Details Date Type Department Care Team ([facility] st Contact Info) Description 03/09/2024 Orders Only [place] [address] [place] [address] Provider, MD Erna Social History Tobacco Use [...] Info) Description 07/04/2025 10:00 AM EST Telemedicine [facility] [address] [place] [address] Jody Dalton, PharmD [address] [place], [place] [phone] documented as of this encounter Procedures Procedure Name Priority Date/Time Associated Diagnosis Comments TRANSTHORACIC ECHO (TTE) COMPLETE Routine 03/04/2024 8:30 AM EDT documented in this encounter Results * Transthoracic echo (TTE) complete (03/04/2024 8:30 AM EDT) us Historical Provider CV ECHO PROCEDURES Final Result documented in this encounter Visit Diagnoses Not on filedocumented in this encounter Care Teams Fabrication Department Supervisor Relationship Specialty Start Date End Date Kathy Farley MD [address] [place] [address] PCP - General Internal Medicine 01/01/18 Ilana Hough RN [address] [place] [address] [employer] Field CoordinatorEngine Repairer Production 05/04/24 09/01/24 Ilana Hough RN [address] [place] [address] [employer] Field CoordinatorEngine Repairer Production 09/07/24 12/07/24 [facility] 09/18/22 documented as of this encounter
--- OUTSIDE RECORDS SUMMARY | 2025-06-15 12:41 | XMS_ITS | Encounter Summary ---
Author Organization [employer] Address [address] [facility] [facility] [address] [place] [address] Care Team Providers Care Quantitative Software Engineer Name Role Phone Kathy Farley MD Primary Care Provider [phone] Ilana Hough RN Unavailable [phone] Ilana Hough RN Unavailable [phone] Encounter Details Date Type Department Care Team (Late st Contact Info) Description 05/03/2024 Orders Only [facility] [address] [place] [address] Provider, MD Erna Social History Tobacco Use [...] Upcoming Encounters Date Type Department Care Team ([facility] st Contact Info) Description 07/04/2025 10:00 AM EST Telemedicine [facility] [address] [place], [place] [phone] Jody Dalton, FelipaD [address] [place] [address] documented as of this encounter Procedures Procedure [...] on filedocumented in this encounter Care Teams Quantitative Software Engineer Relationship Specialty Start Date End Date Kathy Farley MD [address] [place] [address] PCP - General Internal Medicine 01/01/18 Ilana Hough RN [address] [place] [address] Reducing Machine OperatorEngine Testing Supervisor 05/04/24 09/01/24 Ilana Hough RN [address] [facility] [place] [address] Reducing Machine OperatorEngine Testing Supervisor 09/07/24 12/07/[address] [facility] 09/18/22 documented as of this encounter
--- OUTSIDE RECORDS SUMMARY | 2025-06-15 12:41 | XMS_ITS | Encounter Summary ---
Author Organization [employer] Address [address] [facility] 7[address] [place] [address] Care Team Providers Care Any Commodity Buyer Name Role Phone Kathy Farley MD Primary Care Provider [phone] Ilana Hough RN Unavailable [phone] Ilana Hough RN Unavailable [phone] Reason for Visit * Reason Onset Date Comments Nurse Triage 08/12/2024 Encounter Details Date Type Department Care Team (Late st Contact Info) Description 08/12/2024 Telephone [facility] [address] [place] [address] Kathy Farley MD [address] [place] [address] Nurse Triage Social History Tobacco Use Types [...] Info) Description 07/04/2025 10:00 AM EST Telemedicine [facility] [address] [place] [address] Jody Dalton PharmD [address] [place], [place] [phone] documented as of this encounter Visit Diagnoses Not on filedocumented in this encounter Care Teams Any Commodity Buyer Relationship Specialty Start Date End Date Kathy Farley MD [address] [place] [address] PCP - General Internal Medicine 01/01/18 Ilana Hough RN [address] [place] [address] Fabrication EngineerProduce Buyer 05/04/24 09/01/24 Ilana Hough RN [address] [place] [address] Fabrication EngineerProduce Buyer 09/07/24 12/07/24 [facility] 09/18/22 documented as of this encounter
--- OUTSIDE RECORDS SUMMARY | 2025-06-15 12:41 | XMS_ITS | Encounter Summary ---
Author Organization [employer] Address [address] [facility] 7t [place] [address] Care Team Providers Care Motion Study Analyst Name Role Phone Kathy Farley MD Primary Care Provider [phone] Ilana Hough RN Unavailable [phone] Ilana Hough RN Unavailable [phone] Reason for Visit * Reason Onset Date Comments Nurse Triage 07/30/2024 Encounter Details Date Type Department Care Team (Late st Contact Info) Description 07/30/2024 Telephone [facility] MEDICINE [address] [place] [address] Kathy Farley MD 505 [place] [address] Nurse Triage Social History Tobacco Use Types [...] Miscellaneous Notes * Telephone Encounter - Melanie Medinao, NELDA - 07/30/2024 11:13 AM EST Triage call returned to patient via [employer] # [id number] Indra. 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 Triage call returned to patient who reports pain with severe cramps in left leg. Cramps worse at night and now causing severe pain with mobility and pain in calf. Taking Tylenol with no noted improvement. Applies topical cream at night and no relief. Patient receives in home therapy for leg and is unable to tolerate it today due to pain. Patient endorses that left foot is darker in color during call. Patient reports concerns of blood clot. Patient also with ongoing pain in right shoulder receiving home therapy and was seen by [facility] told that he may need surgery but did not hear back from them.Advised to call [facility] and see what plan is for shoulder. Patient advised to seek ED evaluation of left foot with calf pain and darker color to foot. Disposition reviewed and patient in agreement with plan. Patient reports may seek ED care at [facility] when he can. Unable to ambulate [...] can't walk) The caller accepted this outcome. (Amharic) documented in this encounter Plan of Treatment Upcoming Encounters Date Type Department Care Team (Late st Contact Info) Description 07/04/2025 10:00 AM EST Telemedicine [facility] MED & PEDS [address] [place], [place] [phone] Jody Dalton, FelipaD 230 [place], [place] [phone] documented as of this encounter Visit Diagnoses Not on filedocumented in this encounter Care Teams Motion Study Analyst Relationship Specialty Start Date End Date Kathy Farley MD [address] [place], [place] [phone] PCP - General Internal Medicine 01/01/18 Ilana Hough RN 505 [place], [place] [phone] Marketing Effectiveness ManagerSolvent Mixer 05/04/24 09/01/24 Ilana Hough RN [address] [place] [address] Marketing Effectiveness ManagerSolvent Mixer 09/07/24 12/07/24 [facility] 09/18/22 documented as of this encounter
--- OUTSIDE RECORDS SUMMARY | 2025-06-15 12:41 | XMS_ITS | Encounter Summary ---
Author Organization [employer] Address 75 [facility] 7t [place] [address] Care Team Providers Care Director Food Safety Name Role Phone Kathy Farley MD Primary Care Provider [phone]- [phone] Ilana Hough RN Unavailable [phone] Ilana Hough RN Unavailable [phone] Encounter Details Date Type Department Care Team (Latest Contact Info) Description 08/06/2024 Orders Only [facility] CHC MED & PEDS 505 [place] [address] Kathy Farley MD [address] [place] [address] Hypercholesterolemia (Primary Dx) Social History Tobacco Use [...] ([facility] st Contact Info) Description 07/04/2025 10:00 AM EST Telemedicine [facility] MED & PEDS 505 [place] [address] Jody Dalton, PharmD 230 [place] [address] documented as of this encounter Visit Diagnoses Diagnosis Hypercholesterolemia- Primary Pure hypercholesterolemia documented in this encounter Care Teams Director Food Safety Relationship Specialty Start Date End Date Kathy Farley MD 505 [place] [address] PCP - General Internal Medicine 01/01/18 Ilana Hough RN 505 [place] [address] Distribution District SupervisorFlexographic Printing Press Operator 05/04/24 09/01/24 Ilana Hough RN [address] [place] [address] Distribution District SupervisorFlexographic Printing Press Operator 09/07/24 12/07/24 [facility] 09/18/22 documented as of this encounter
--- OUTSIDE RECORDS SUMMARY | 2025-06-15 12:41 | XMS_ITS | Encounter Summary ---
Author Organization [employer] Address [address] [facility] 7t [place] [address] Care Team Providers Care Tool Crib Supervisor Name Role Phone Kathy Farley MD Primary Care Provider [phone] Encounter Details Date Type Department Care Team (Latest Contact Info) Description 06/15/2025 Travel Social History Tobacco Use Types Packs/Day [...] Description 07/04/2025 10:00 AM EST Telemedicine [facility] CHC MED & PEDS 505 [place] [address] Jody Dalton, PharmD 230 [place] [address] documented as of this encounter Visit Diagnoses Not on filedocumented in this encounter Additional Health Concerns Assessment Noted Time PHQ-9 Depression Total Score: 8 04/07/20 25 11:58 AM EDT documented as of this encounter Care Teams Tool Crib Supervisor Relationship Specialty Start Date End Date Kathy Farley MD 505 [place] [address] PCP - General Internal Medicine 01/01/18 [facility] 09/18/22 documented as of this encounter
--- OUTSIDE RECORDS SUMMARY | 2025-06-15 12:42 | XMS_ITS | Encounter Summary ---
Author Organization [employer] Address [address] [facility] 7t [place] [address] Care Team Providers Care Grinding Operator Name Role Phone Kathy Farley MD Primary Care Provider [phone] Ilana Hough RN Unavailable [phone] Ilana Hough RN Unavailable [phone] Reason for Visit * Reason Onset Date Comments Nurse Triage 10/27/2023 Encounter Details Date Type Department Care Team ([facility] st Contact Info) Description 10/27/2023 Telephone [facility] CHC MED & PEDS 505 [place], [place] [phone] Kathy Farley MD 505 [place] [address] Nurse Triage Social History Tobacco Use Types [...] to go to walk in center at [facility]. Pt. Advised to Drink lots of [...] 11/06/23. Appt was cancelled. Please contact at [phone] * Telephone Encounter - Wing Manju RN [...] mild relief. Pt offered WIC today or [facility] tomorrow. Pt declines states wants PCP [...] Upcoming Encounters Date Type Department Care Team ([facility] st Contact Info) Description 07/04/2025 10:00 AM EST Telemedicine [facility] MED & PEDS 505 [place] [address] Jody Dalton, PharmD 230 [place], [place] [phone] documented as of this encounter Visit Diagnoses Not on filedocumented in this encounter Care Teams Grinding Operator Relationship Specialty Start Date End Date Kathy Farley MD 505 [place], [place] [phone] PCP - General Internal Medicine 01/01/18 Ilana Hough RN 505 [place], [place] [phone] Cad AdministratorFirst Coat Sander 05/04/24 09/01/24 Ilana Hough RN [address] [place] [address] Cad AdministratorFirst Coat Sander 09/07/24 12/07/[address] [facility] 09/18/22 documented as of this encounter
--- OUTSIDE RECORDS SUMMARY | 2025-06-15 12:42 | XMS_ITS | Encounter Summary ---
Author Organization [employer] Address 75 [facility] 7t [place] [address] Care Team Providers Care Cross Cut Sawyer Name Role Phone Kathy Farley MD Primary Care Provider [phone] Ilana Hough RN Unavailable [phone] Ilana Hough RN Unavailable [phone] Reason for Visit * Reason Comments Med Refill Encounter Details Date Type Department Care Team ([facility] st Contact Info) Description 01/13/2024 Refill [facility] CHC MED & PEDS [address] [place], [place] [phone] Carolyn Ribeiro FNP 505 [place], [place] [phone] Chronic low back pain, unspecified back pain [...] Description 07/04/2025 10:00 AM EST Telemedicine [facility] MED & PEDS 505 [place] [address] Jody Dalton, PharmD 230 [place] [address] documented as of this encounter Visit Diagnoses Diagnosis Chronic low back pain, unspecified back pain laterality, unspecified whether sciatica present documented in this encounter Care Teams Cross Cut Sawyer Relationship Specialty Start Date End Date Kathy Farley MD 505 [place] [address] PCP - General Internal Medicine 01/01/18 Ilana Hough RN 505 [place] [address] Legal AdvisorScanning Supervisor 05/04/24 09/01/24 Ilana Hough RN 505 [place] [address] Legal AdvisorScanning Supervisor 09/07/24 12/07/24 [facility] 09/18/22 documented as of this encounter
--- OUTSIDE RECORDS SUMMARY | 2025-06-15 12:42 | XMS_ITS | Encounter Summary ---
Author Organization [employer] Address [address] [facility] 7t [place] [address] Care Team Providers Care Senior Business Consultant Name Role Phone Kathy Farley MD Primary Care Provider [phone] Ilana Hough RN Unavailable [phone] Ilana Hough RN Unavailable [phone] Reason for Visit * Reason Onset Date Comments Reschedule 08/15/2022 Encounter Details Date Type Department Care Team ([facility] st Contact Info) Description 08/15/2022 Telephone [facility] CHC MED & PEDS 505 [place] [address] Kathy Farley MD 505 [place] [address] Reschedule Social History Tobacco Use Types Packs/Day [...] 08/20/22. Pt declines. Agrees to visit on 1/17/23 @1:00pm with Dr. Teran. * Telephone Encounter - Josefa Byers - 08/15/2022 10:04 AM EST Tc from pt requesting to r/s today canceled sick appt . States his ride canceled due to weather . documented in this encounter Plan of Treatment Upcoming Encounters Date Type Department Care Team (Late st Contact Info) Description 07/04/2025 10:00 AM EST Telemedicine [facility] CHC MED & PEDS 505 [place] [address] Jody Dalton, FelipaD 230 [place] [address] documented as of this encounter Visit Diagnoses Not on filedocumented in this encounter Care Teams Senior Business Consultant Relationship Specialty Start Date End Date Kathy Farley MD [address] [place] [address] PCP - General Internal Medicine 01/01/18 Ilana Hough RN 505 [place] [address] Factory AssemblerBrake Tester 05/04/24 09/01/24 Ilana Hough RN 505 [place] [address] Factory AssemblerBrake Tester 09/07/24 12/07/24 [facility] 09/18/22 documented as of this encounter
--- OUTSIDE RECORDS SUMMARY | 2025-06-15 12:42 | XMS_ITS | Encounter Summary ---
Author Organization [employer] Address [address] [facility] 7t [place] [address] Care Team Providers Care Chargemaster Analyst Name Role Phone Kathy Farley MD Primary Care Provider [phone] Ilana Huogh RN Unavailable [phone] Ilana Hough RN Unavailable [phone] Reason for Visit * Reason Onset Date Comments Med Refill 10/24/2023 Encounter Details Date Type Department Care Team ([facility] st Contact Info) Description 10/24/2023 Refill [facility] CHC MED & PEDS 505 [place] [address] Kathy Farley MD 505 [place] [address] Chronic pain of left knee (Primary Dx) [...] 50 MG tablet To be sent to: [facility] [place] - [id number] - [place] - [address] documented in this encounter Plan of Treatment Upcoming Encounters Date Type Department Care Team ([facility] st Contact Info) Description 07/04/2025 10:00 AM EST Telemedicine [facility] CHC MED & PEDS 505 [place], [place] [phone] Jody Dalton, PharmD 230 [place] [address] documented as of this encounter Visit Diagnoses Diagnosis Chronic pain of left knee- Primary documented in this encounter Care Teams Chargemaster Analyst Relationship Specialty Start Date End Date Kathy Farley MD 505 [place], [place] [phone] PCP - General Internal Medicine 01/01/18 Ilana Hough RN 505 [place], [place] [phone] TaxonomistOracle Database Consultant 05/04/24 09/01/24 Ilana Hough RN [address] [place] [address] TaxonomistOracle Database Consultant 09/07/24 12/07/24 [facility] 09/18/22 documented as of this encounter
--- OUTSIDE RECORDS SUMMARY | 2025-06-15 12:42 | XMS_ITS | Encounter Summary ---
Author Organization [employer] Address [address] [facility] 7t [place] [address] Care Team Providers Care Tool Maintenance Technician Name Role Phone Kathy Farley MD Primary Care Provider [phone] Encounter Details Date Type Department Care Team ([facility] st Contact Info) Description 03/28/2025 Orders Only [facility] CHC MED & PEDS 505 [place], [place] [phone] Kathy Farley MD 505 [place] [address] Cough in adult patient (Primary Dx) Social History Tobacco Use Types [...] Description 07/04/2025 10:00 AM EST Telemedicine [facility] MED & PEDS 505 [place] [address] Jody Dalton PharmD 230 [place] [address] documented as of this encounter Visit Diagnoses Diagnosis Cough in adult patient- Primary documented in this encounter Additional Health Concerns Assessment Noted Time PHQ-9 Depression Total Score: 0 10/14/19 25 10:00 AM EDT documented as of this encounter Care Teams Tool Maintenance Technician Relationship Specialty Start Date End Date Kathy Farley MD 505 [place] [address] PCP - General Internal Medicine 01/01/18 [facility] 09/18/22 documented as of this encounter
--- OUTSIDE RECORDS SUMMARY | 2025-06-15 12:42 | XMS_ITS | Encounter Summary ---
Author Organization [employer] Address [address] [place] [address] 7t [place] [address] Care Team Providers Care Garment Parts Cutter Machine Name Role Phone Kathy Farley MD Primary Care Provider [phone] Reason for Referral * PFT (Routine) - Canceled Specialty Diagnoses / Procedures Referred By Contnora t Referred To Contact Diagnoses Chronic cough Cigarette smoker Procedures Pulmonary Function Test Kathy Farley MD [address] [place] [address] Phone: tel: fax: Referral ID Status Reason Start Date Expiration Date V isits Requested Visits Authorized [id number] Canceled 04/13/2025 04/13/2026 1 1 Encounter Details Date Type Department Care Team (Late st Contact Info) Description 04/13/2025 Orders Only [facility] CHC MED & PEDS [address] [place] [address] Kathy Farley MD 505 [place] [address] Chronic cough (Primary Dx); Cigarette smoker Social History Tobacco Use Types Packs/Day Years [...] AM EST Telemedicine [facility] MED & PEDS [address] [place] [address] Jody Dalton, PharmD [address] [place] [address] Scheduled Orders Name Type Priority Associated Diagnoses Orde r Schedule Pulmonary Function Test PFT Routine Chronic cough Cigarette smoker Expected: 04/13/2025, Expires: 10/11/2025 documented as of this encounter Visit Diagnoses Diagnosis Chronic cough- Primary Cough Cigarette smoker Tobacco use disorder documented in this encounter Additional Health Concerns Assessment Noted Time PHQ-9 Depression Total Score: 8 04/07/20 25 11:58 AM EDT documented as of this encounter Care Teams Garment Parts Cutter Machine Relationship Specialty Start Date End Date Kathy Farley MD [address] [place] [address] [place] [address] PCP - General Internal Medicine 01/01/18 [facility] 09/18/22 documented as of this encounter
--- OUTSIDE RECORDS SUMMARY | 2025-06-15 12:42 | XMS_ITS | Encounter Summary ---
Author Organization [employer] Address [address] [facility] 7t [place] [address] Care Team Providers Care Lap Winder Name Role Phone Kathy Farley MD Primary Care Provider [phone] Ilana Hough RN Unavailable [phone] Ilana Hough RN Unavailable [phone] Reason for Visit * Reason Onset Date Comments Med Refill 11/12/2023 Encounter Details Date Type Department Care Team ([facility] st Contact Info) Description 11/12/2023 Telephone [facility] MED & PEDS [address] [place] [address] Kathy Farley MD 505 [place] [address] Med Refill Social History Tobacco Use Types [...] 600 MG tablet To be sent to: [facility] - [place], [place] - [id number] - [place] - [address] documented in this encounter Plan of Treatment Upcoming Encounters Date Type Department Care Team (Late st Contact Info) Description 07/04/2025 10:00 AM EST Telemedicine [facility] CHC MED & PEDS 505 [place] [address] Jody Dalton, PharmD 230 [place] [address] documented as of this encounter Visit Diagnoses Not on filedocumented in this encounter Care Teams Lap Winder Relationship Specialty Start Date End Date Kathy Farley MD 505 [place] [address] PCP - General Internal Medicine 01/01/18 Ilana Hough, RN [address] [place] [address] Fluorescent Lighting Model MakerOffensive Coordinator 05/04/24 09/01/24 Ilana Hough RN [address] [place] [address] [place] [address] Fluorescent Lighting Model MakerOffensive Coordinator 09/07/24 12/07/24 [facility] 09/18/22 documented as of this encounter
--- OUTSIDE RECORDS SUMMARY | 2025-06-15 12:42 | XMS_ITS | Encounter Summary ---
Author Organization [employer] Address 75 [facility] 7t [place] [address] Care Team Providers Care Reviewer Sales Name Role Phone Kathy Farley MD Primary Care Provider [phone] Reason for Visit * Reason Onset Date Comments Medication Question 03/25/2025 Encounter Details Date Type Department Care Team ([facility] st Contact Info) Description 03/25/2025 Telephone [facility] CHC MED & PEDS [address] [place] [address] Kathy Farley MD 505 [place] [address] Medication Question Social History Tobacco Use Types Packs/Day Years [...] encounter Miscellaneous Notes * Telephone Encounter - Yanira Taylor - 03/25/2025 1:47 PM EDT Tc from pt requesting alternative medication for benzonatate (Tessalon Perles) 100 MG capsule due to health insurance not covering medication. documented in this encounter Plan of Treatment Upcoming Encounters Date Type Department Care Team (Late st Contact Info) Description 07/04/2025 10:00 AM EST Telemedicine [facility] MED & PEDS [address] [place], [place] [phone] Jody Dalton, PharmD 230 [place] [address] documented as of this encounter Visit Diagnoses Not on filedocumented in this encounter Additional Health Concerns Assessment Noted Time PHQ-9 Depression Total Score: 0 10/14/19 25 10:00 AM EDT documented as of this encounter Care Teams Reviewer Sales Relationship Specialty Start Date End Date Kathy Farley MD [address] [place] [address] PCP - General Internal Medicine 01/01/18 [facility] 09/18/22 documented as of this encounter
--- OUTSIDE RECORDS SUMMARY | 2025-06-15 12:42 | XMS_ITS | Encounter Summary ---
Author Organization [employer] Address [address] [facility] 7t [place] [address] Care Team Providers Care Traffic Assistant Name Role Phone Kathy Farley MD Primary Care Provider [phone] Ilana Hough RN Unavailable [phone] Ilana Hough RN Unavailable [phone] Reason for Visit * Reason Onset Date Comments Nurse Triage 11/12/2023 Encounter Details Date Type Department Care Team (Late st Contact Info) Description 11/12/2023 Telephone [facility] MEDICINE [address] [place] [address] Kathy Farley MD [address] [place] [address] Nurse Triage Social History Tobacco Use Types [...] agrees with home care advised. Apt with ACTUARIAL ANALYST Gema 11/14/23 @ 1100am, Pt did cancel [...] has difficulty coming to the walk in [place] due to transportation. documented in this encounter Plan of Treatment Upcoming Encounters Date Type Department Care Team (Late st Contact Info) Description 07/04/2025 10:00 AM EST Telemedicine [facility] MED & PEDS [address] [place] [address] Jody Dalton, PharmD 230 [place], [place] [phone] documented as of this encounter Visit Diagnoses Not on filedocumented in this encounter Care Teams Traffic Assistant Relationship Specialty Start Date End Date Kathy Farley MD 505 [place] [address] PCP - General Internal Medicine 01/01/18 Ilana Hough, DUNG [address] [place] [address] Marine Animal TrainerSurveyor Instrument Assistant 05/04/24 09/01/24 Ilana Hough RN [address] [place] [address] Marine Animal TrainerSurveyor Instrument Assistant 09/07/24 12/07/24 [facility] 09/18/22 documented as of this encounter
--- OUTSIDE RECORDS SUMMARY | 2025-06-15 12:42 | XMS_ITS | Encounter Summary ---
Author Organization [employer] Address [address] [facility] 7t [place] [address] Care Team Providers Care Oil Pump Station Operator Chief Name Role Phone Kathy Farley MD Primary Care Provider [phone] Ilana Hough RN Unavailable [phone] Ilana Hough RN Unavailable [phone] Reason for Visit * Reason Onset Date Comments Results 12/05/2023 Encounter Details Date Type Department Care Team ([facility] Contact Info) Description 12/05/2023 Telephone [facility] MED [facility] PEDS [address] [place] [address] Kathy Farley MD 505 [place] [address] Results Social History Tobacco Use Types Packs/Day [...] Xray shoulder Date when done: 12/02 Facility: [facility] imaging Please contact pt at [phone] documented in this encounter Plan of Treatment Upcoming Encounters Date Type Department Care Team (Late st Contact Info) Description 07/04/2025 10:00 AM EST Telemedicine [facility] MED & PEDS [address] [place], [place] [phone] Jody Dalton, PharmD 230 [place], [place] [phone] documented as of this encounter Visit Diagnoses Not on filedocumented in this encounter Care Teams Oil Pump Station Operator Chief Relationship Specialty Start Date End Date Kathy Farley MD [address] [place] [address] PCP - General Internal Medicine 01/01/18 Ilana Hough RN 505 [place] [address] Naval DesignerCentral Office Installer 05/04/24 09/01/24 Ilana Hough RN 505 [place] [address] Naval DesignerCentral Office Installer 09/07/24 12/07/24 [facility] 09/18/22 documented as of this encounter
--- OUTSIDE RECORDS SUMMARY | 2025-06-15 12:42 | XMS_ITS | Encounter Summary ---
Author Organization [employer] Address 75 [facility] 7t [place] [address] Care Team Providers Care Forex Trader Name Role Phone Kathy Farley MD Primary Care Provider [phone] Reason for Visit * Reason Onset Date Comments call back reuqest 04/22/2025 Encounter Details Date Type Department Care Team ([facility] st Contact Info) Description 04/22/2025 Telephone [facility] MEDICINE [address] [place] [address] Kathy Farley MD 505 [place] [address] call back reuqest Social History Tobacco Use Types Packs/Day Years [...] encounter Miscellaneous Notes * Telephone Encounter - Juana Salgado - 04/22/2025 12:13 PM EDT Tc from pt requesting a call in regard of televisit from 04/22 Contact pt at [phone] Need district sales leader documented in this encounter Plan of Treatment Upcoming Encounters Date Type Department Care Team ([facility] st Contact Info) Description 07/04/2025 10:00 AM EST Telemedicine [facility] CHC MED & PEDS [address] [place] [address] Jody Dalton, PharmD 230 [place] [address] documented as of this encounter Visit Diagnoses Not on filedocumented in this encounter Additional Health Concerns Assessment Noted Time PHQ-9 Depression Total Score: 8 04/07/20 25 11:58 AM EDT documented as of this encounter Care Teams Forex Trader Relationship Specialty Start Date End Date Kathy Farley MD 505 [place] [address] PCP - General Internal Medicine 01/01/18 [facility] 09/18/22 documented as of this encounter
--- OUTSIDE RECORDS SUMMARY | 2025-06-15 12:42 | XMS_ITS | Encounter Summary ---
Author Organization [employer] Address [address] [facility] 7t [place] [address] Care Team Providers Care Stocking And Box Shop Supervisor Name Role Phone Kathy Farley MD Primary Care Provider [phone] Ilana Hough RN Unavailable [phone] Ilana Hough RN Unavailable [phone] Encounter Details Date Type Department Care Team ([facility] st Contact Info) Description 02/17/2024 Orders Only [facility] [address] [place] [address] Provider, MD Erna Social History Tobacco Use [...] Info) Description 07/04/2025 10:00 AM EST Telemedicine [facility] MED & PEDS [address] [place] [address] Jody Dalton, PharmD 230 [place], [place] [phone] documented as of this encounter Procedures Procedure [...] on filedocumented in this encounter Care Teams Stocking And Box Shop Supervisor Relationship Specialty Start Date End Date Kathy Farley MD 505 [place] [address] PCP - General Internal Medicine 01/01/18 Ilana Hough RN 505 [place] [address] Store PlannerBelly Dump Driver 05/04/24 09/01/24 Ilana Hough RN 505 [place] [address] Store PlannerBelly Dump Driver 09/07/24 12/07/24 [facility] 09/18/22 documented as of this encounter
--- OUTSIDE RECORDS SUMMARY | 2025-06-15 12:42 | XMS_ITS | Encounter Summary ---
Author Organization [employer] [facility] Address [address] [place] [address] 7t [place] [address] Care Team Providers Care Certified Flight Instructor Name Role Phone Kathy Farley MD Primary Care Provider [phone]- [phone] Ilana Hough RN Unavailable [phone] Ilana Hough RN Unavailable [phone] Reason for Visit * Reason Comments Med Refill Encounter Details Date Type Department Care Team (Late st Contact Info) Description 09/06/2022 Refill [facility] MEDICINE [address] [place], [place] [phone] Name, MD Madi [address] [place], [place] [phone] Dorsalgia, unspecified Social History Tobacco Use Types [...] Info) Description 07/04/2025 10:00 AM EST Telemedicine [facility] CHC MED & PEDS [address] [place] [address] Jody Dalton, PharmD [address] [place] [address] documented as of this encounter Visit Diagnoses Diagnosis Dorsalgia, unspecified documented in this encounter Care Teams Certified Flight Instructor Relationship Specialty Start Date End Date Kathy Farley MD 505 [place] [address] PCP - General Internal Medicine 01/01/18 Ilana Hough RN 505 [place] [address] Hourly CaregiverChild Care Sitter 05/04/24 09/01/24 Ilana Hough RN 505 [place] [address] Hourly CaregiverChild Care Sitter 09/07/24 12/07/24 [facility] 09/18/22 documented as of this encounter
--- OUTSIDE RECORDS SUMMARY | 2025-06-15 12:42 | XMS_ITS | Encounter Summary ---
Author Organization [employer] [facility] Address [address] [facility] 7t [place] [address] Care Team Providers Care Machine Shop Repair Technician Name Role Phone Kathy Farley MD Primary Care Provider [phone] Ilana Hough RN Unavailable [phone] Ilana Hough RN Unavailable [phone] Reason for Referral * Consultation (Routine) - Closed Specialty Diagnoses / Procedures Referred By Roseanna judd Referred To Contact Orthopaedic Surgery Diagnoses Acute pain of right shoulder Tear of right supraspinatus tendon Tear of right glenoid labrum, initial encounter Kathy Farley MD [address] [place] [address] Phone: tel: fax: [facility] [address] [place] [address] [place] [address] Phone: tel: fax: Referral ID Status Reason Start Date Expiration Date V isits Requested Visits Authorized [id number] Closed Specialty Services Required 06/21/2024 06/21/2025 1 1 Encounter Details Date Type Department Care Team (Late st Contact Info) Description 06/11/2024 Orders Only [facility] CHC MED & PEDS [address] [place] [address] Kathy Farley MD [address] [place] [address] Acute pain of right shoulder (Primary Dx); [...] Description 07/04/2025 10:00 AM EST Telemedicine [facility] MED & PEDS [address] [place] [address] Jody Dalton, PharmD 230 [place], [place] [phone] Scheduled Referrals Name Type Priority Associated Diagnoses [...] encounter documented in this encounter Care Teams Machine Shop Repair Technician Relationship Specialty Start Date End Date Kathy Farley MD 505 [place] [address] PCP - General Internal Medicine 01/01/18 Ilana Hough RN [address] [place] [address] Pilot Plant Operator HelperBail Bond Agent 05/04/24 09/01/24 Ilana Hough RN [address] [place] [address] Pilot Plant Operator HelperBail Bond Agent 09/07/24 12/07/24 [facility] 09/18/22 documented as of this encounter
--- OUTSIDE RECORDS SUMMARY | 2025-06-15 12:42 | XMS_ITS | Encounter Summary ---
Author Organization [employer] Address [address] [facility] 7t [place] [address] Care Team Providers Care Mdm Sr Name Role Phone Kathy Farley MD Primary Care Provider [phone] Ilana Hough RN Unavailable [phone] Ilana Hough RN Unavailable [phone] Encounter Details Date Type Department Care Team (Late st Contact Info) Description 12/16/2023 Orders Only [facility] CHC MED & PEDS 505 [place], [place] [phone] Kathy Farley MD 505 [place], [place] [phone] Chronic right shoulder pain (Primary Dx); Arthritis [...] Info) Description 07/04/2025 10:00 AM EST Telemedicine [facility] MED & PEDS 505 [place] [address] Jody Dalton PharmD 230 [place] [address] documented as of this encounter Visit Diagnoses Diagnosis Chronic right shoulder pain- Primary Pain in joint, shoulder region Arthritis of carpometacarpal (CMC) joint of right thumb documented in this encounter Care Teams Mdm Sr Relationship Specialty Start Date End Date Kathy Farley MD 505 [place] [address] PCP - General Internal Medicine 01/01/18 Ilana Hough RN 505 [place] [address] Draw Frame RunnerMail Carrier And Clerk 05/04/24 09/01/24 Ilana Hough RN 505 [place] [address] Draw Frame RunnerMail Carrier And Clerk 09/07/24 12/07/24 [facility] 09/18/22 documented as of this encounter
--- OUTSIDE RECORDS SUMMARY | 2025-06-15 12:42 | XMS_ITS | Encounter Summary ---
Author Organization [employer] Address [address] [facility] 7t [place] [address] Care Team Providers Care Bmx Rider Name Role Phone Kathy Farley MD Primary Care Provider [phone] Ilana Hough RN Unavailable [phone] Ilana Hough RN Unavailable [phone] Reason for Visit * Reason Comments Med Refill Encounter Details Date Type Department Care Team (Late st Contact Info) Description 08/15/2023 Refill [facility] MEDICINE 230 [place] [address] Kathy Farley MD 505 [place] [address] Chronic low back pain, unspecified back pain [...] Info) Description 07/04/2025 10:00 AM EST Telemedicine [facility] CHC MED & PEDS 505 [place] [address] Jody Dalton PharmD 230 [place] [address] documented as of this encounter Visit Diagnoses Diagnosis Chronic low back pain, unspecified back pain laterality, unspecified whether sciatica present documented in this encounter Care Teams Bmx Rider Relationship Specialty Start Date End Date Kathy Farley MD 505 [place] [address] PCP - General Internal Medicine 01/01/18 Ilana Hough RN 505 [place] [address] Livestock TraderBed Manager 05/04/24 09/01/24 Ilana Hough RN 505 [place] [address] Livestock TraderBed Manager 09/07/24 12/07/24 [facility] 09/18/22 documented as of this encounter
--- OUTSIDE RECORDS SUMMARY | 2025-06-15 12:42 | XMS_ITS | Encounter Summary ---
Author Organization [employer] Address 75 [facility] 7t [place] [address] Care Team Providers Care Social Science Instructor Name Role Phone Kathy Farley MD Primary Care Provider [phone] Ilaan Hough RN Unavailable [phone] Ilana Hough RN Unavailable [phone] Encounter Details Date Type Department Care Team (Late st Contact Info) Description 09/24/2023 Orders Only [facility] CHC MED & PEDS 505 [place], [place] [phone] Kathy Farley MD 505 [place], [place] [phone] Chronic left-sided lumbar radiculopathy (Primary Dx) Social [...] Description 07/04/2025 10:00 AM EST Telemedicine [facility] CHC MED & PEDS 505 [place], [place] [phone] Jody Dalton, PharmD 230 [place] [address] documented as of this encounter Visit Diagnoses Diagnosis Chronic left-sided lumbar radiculopathy- Primary documented in this encounter Care Teams Social Science Instructor Relationship Specialty Start Date End Date Ktahy Farley MD 505 [place] [address] PCP - General Internal Medicine 01/01/18 Ilana Hough RN 505 [place] [address] Refrigeration Unit RepairerHeavy Duty Press Operator 05/04/24 09/01/24 Ilana Hough RN 505 [place] [address] Refrigeration Unit RepairerHeavy Duty Press Operator 09/07/24 12/07/24 [facility] 09/18/22 documented as of this encounter
--- OUTSIDE RECORDS SUMMARY | 2025-06-15 12:43 | XMS_ITS | Encounter Summary ---
Author Organization [employer] Address [address] [place] [address] 7t [place] [address] Care Team Providers Care Pathology Laboratory Aides Teacher Name Role Phone Kathy Farley MD Primary Care Provider [phone] Ilana Hough RN Unavailable [phone] Ilana Hough RN Unavailable [phone] Reason for Visit * Reason Onset Date Comments Med Refill 01/06/2023 Encounter Details Date Type Department Care Team ([facility] st Contact Info) Description 01/06/2023 Telephone [facility] CHC MED & PEDS [address] [place] [address] Kathy Farley MD 505 [place] [address] Med Refill Social History Tobacco Use Types [...] Team ([facility] st Contact Info) Description 07/04/2025 10:00 AM EST Telemedicine [facility] CHC MED & PEDS 505 [place], [place] [phone] Jody Dalton, PharmD [address] [place] [address] documented as of this encounter Visit Diagnoses Not on filedocumented in this encounter Care Teams Pathology Laboratory Aides Teacher Relationship Specialty Start Date End Date Kathy Farley MD 505 [place] [address] PCP - General Internal Medicine 01/01/18 Ilana Hough RN 505 [place] [address] Loan Service OfficerBindery Helper 05/04/24 09/01/24 Ilana Hough RN 505 [place] [address] Loan Service OfficerBindery Helper 09/07/24 12/07/24 [facility] 09/18/22 documented as of this encounter
--- OUTSIDE RECORDS SUMMARY | 2025-06-15 12:43 | XMS_ITS | Encounter Summary ---
Author Organization [employer] Address 75 [facility] 7t [place] [address] Care Team Providers Care Record Tester Name Role Phone Kathy Farely MD Primary Care Provider [phone] Ilana Hough RN Unavailable [phone] Ilana Hough RN Unavailable [phone] Reason for Visit * Reason Comments Med Refill Encounter Details Date Type Department Care Team (Late st Contact Info) Description 12/17/2022 Refill [facility] MEDICINE 230 [place] [address] Kathy Farley MD 505 [place] [address] Alcohol abuse, uncomplicated Social History Tobacco Use [...] Info) Description 07/04/2025 10:00 AM EST Telemedicine [facility] CHC MED & PEDS 505 [place] [address] Jody Dalton, PharmD 230 [place] [address] documented as of this encounter Visit Diagnoses Diagnosis Alcohol abuse, uncomplicated documented in this encounter Care Teams Record Tester Relationship Specialty Start Date End Date Kathy Farley MD 505 [place] [address] PCP - General Internal Medicine 01/01/18 Ilana Hough RN 505 [place] [address] Purchasing Contracting ClerkApplication Support Developer 05/04/24 09/01/24 Ilana Hough RN 505 [place] [address] Purchasing Contracting ClerkApplication Support Developer 09/07/24 12/07/24 [facility] 09/18/22 documented as of this encounter
--- OUTSIDE RECORDS SUMMARY | 2025-06-15 12:43 | XMS_ITS | Encounter Summary ---
Author Organization [employer] Address 75 [facility] 7t [place] [address] Care Team Providers Care Materials Technician Name Role Phone Kathy Farley MD Primary Care Provider [phone] Ilana Hough RN Unavailable [phone] Ilana Hough RN Unavailable [phone] Encounter Details Date Type Department Care Team (Late Contact Info) Description 05/08/2023 Orders Only [facility] CHC MED & PEDS 505 [place] [address] Kathy Farley MD 505 [place] [address] Blurry vision, bilateral (Primary Dx) Social History [...] Department Care Team (Late Contact Info) Description 07/04/2025 10:00 AM EST Telemedicine [facility] MED & PEDS [address] [place] [address] Jody Dalton, PharmD 230 [place] [address] documented as of this encounter Visit Diagnoses Diagnosis Blurry vision, bilateral- Primary Other specified visual disturbances documented in this encounter Care Teams Materials Technician Relationship Specialty Start Date End Date Kathy Farley MD 505 [place] [address] PCP - General Internal Medicine 01/01/18 Ilana Hough RN 505 [place] [address] Medical Technologist Blood BankInspection Supervisor 05/04/24 09/01/24 Ilana Hough RN 505 [place] [address] Medical Technologist Blood BankInspection Supervisor 09/07/24 12/07/24 [facility] 09/18/22 documented as of this encounter
--- OUTSIDE RECORDS SUMMARY | 2025-06-15 12:43 | XMS_ITS | Encounter Summary ---
Author Organization [employer] Address 75 [facility] 7t [place] [address] Care Team Providers Care Elementary School Principal Name Role Phone Kathy Farley MD Primary Care Provider [phone] Ilana Hough RN Unavailable [phone] Ilana Hough RN Unavailable [phone] Reason for Visit * Reason Comments Med Refill Encounter Details Date Type Department Care Team ([facility] st Contact Info) Description 05/13/2023 Refill [facility] CHC MED & PEDS 505 [place] [address] Kathy Farley MD 505 [place] [address] Chronic low back pain, unspecified back pain [...] Info) Description 07/04/2025 10:00 AM EST Telemedicine [facility] MED & PEDS [address] [place] [address] Jody Dalton, PharmD 230 [place] [address] documented as of this encounter Visit Diagnoses Diagnosis Chronic low back pain, unspecified back pain laterality, unspecified whether sciatica present documented in this encounter Care Teams Elementary School Principal Relationship Specialty Start Date End Date Kathy Farley MD 505 [place] [address] PCP - General Internal Medicine 01/01/18 Ilana Hough RN 505 [place] [address] Dry Kiln WorkerAccounting Systems Manager 05/04/24 09/01/24 Ilana Hough RN 505 [place] [address] Dry Kiln WorkerAccounting Systems Manager 09/07/24 12/07/24 [facility] 09/18/22 documented as of this encounter
--- OUTSIDE RECORDS SUMMARY | 2025-06-15 12:43 | XMS_ITS | Encounter Summary ---
Author Organization [employer] Address 75 [facility] 7t [place] [address] Care Team Providers Care Research Program Assistant Name Role Phone Kathy Farley MD Primary Care Provider [phone] Ilana Hough RN Unavailable [phone] Ilana Hough RN Unavailable [phone] Reason for Visit * Reason Onset Date Comments Med Refill 08/14/2023 Encounter Details Date Type Department Care Team ([facility] st Contact Info) Description 08/14/2023 Refill [facility] CHC MED & PEDS 505 [place] [address] Kathy Farley MD 505 [place] [address] Chronic low back pain, unspecified back pain [...] PM EST TC to pt to schedule SENIOR QUALITY ENGINEER appt. Pt asked for a f/u visit with PCP first. C/o severe L knee pain. Appt scheduled for 09/10/23 @ 10:30. * Telephone Encounter - Teresa Houhg - 08/14/2023 10:31 AM EST TC from pt requesting medication refill. Was given medication on 07/24 OV Medications needing refill : traMADol (Ultram) 50 MG tablet To be sent to: [facility] [place] - [id number] - [place] - [address] documented in this encounter Plan of Treatment Upcoming Encounters Date Type Department Care Team (Late st Contact Info) Description 07/04/2025 10:00 AM EST Telemedicine [facility] CHC MED & PEDS [address] [place] [address] Jody Dalton, PharmD 230 [place] [address] documented as of this encounter Visit Diagnoses Diagnosis Chronic low back pain, unspecified back pain laterality, unspecified whether sciatica present documented in this encounter Care Teams Research Program Assistant Relationship Specialty Start Date End Date Kathy Farley MD 505 [place] [address] PCP - General Internal Medicine 01/01/18 Ilana Hough RN 505 [place] [address] Family PhysicianDean Of Graduate Studies 05/04/24 09/01/24 Ilana Hough RN 505 [place] [address] Family PhysicianDean Of Graduate Studies 09/07/24 12/07/24 [facility] 09/18/22 documented as of this encounter
--- OUTSIDE RECORDS SUMMARY | 2025-06-15 12:43 | XMS_ITS | Encounter Summary ---
Author Organization [employer] Address [address] [facility] 7t [place] [address] Care Team Providers Care Residential Driver Name Role Phone Kathy Farley MD Primary Care Provider [phone] Ilana Hough RN Unavailable [phone] Ilana Hough RN Unavailable [phone] Reason for Visit * Reason Onset Date Comments Durable Medical Equipment 09/02/2023 Encounter Details Date Type Department Care Team (Late st Contact Info) Description 09/02/2023 Telephone [facility] MEDICINE [address] [place] [address] Kathy Farley MD 505 [place] [address] Durable Medical Equipment Social History Tobacco Use [...] Info) Description 07/04/2025 10:00 AM EST Telemedicine [facility] CHC MED & PEDS 505 [place] [address] Jody Dalton, PharmD 230 [place] [address] documented as of this encounter Visit Diagnoses Not on filedocumented in this encounter Care Teams Residential Driver Relationship Specialty Start Date End Date Kathy Farley MD 505 [place] [address] PCP - General Internal Medicine 01/01/18 Ilana Hough RN [address] [place], [place] Track InspectorHealth Analyst 05/04/24 09/01/24 Ilana Hough RN [address] [place] [address] [place] [address] Track InspectorHealth Analyst 09/07/24 12/07/24 [facility] 09/18/22 documented as of this encounter
--- OUTSIDE RECORDS SUMMARY | 2025-06-15 12:43 | XMS_ITS | Clinical Summary ---
Author Organization [facility] Address [address] [place] [address] Phone Care Team Providers Care Drywall Sander Name Role Phone Kathy Farley MD Primary Care Provider [phone] Allergies No known active allergies Encounters Date Type Department Care Team Description 04/27/2025 10:13 AM EDT - 04/27/2025 11:59 PM EDT Hospital Encounter [facility] Pulmonary [address] [place] [address] Cigarette smoker; Chronic cough Discharge Disposition: Home or Self Care from Last 3 Months Surgical History Surgery Date Site/Laterality Comments HAND SURGERY Right PROCEDURE: HISTORICAL HAND SURGERY; COMMENT: 3 times KNEE ARTHROSCOPY 01/14/2022 Left PROCEDURE: LA ARTHROSCOPY AID TX SPINE&/FX KNEE W/O FIXJ; [...] 04/06/2024 10:22 AM EDT Plan of Treatment Upcoming Encounters Date Type Department Care Team (Late st Contact Info) Description 06/23/2025 2:45 PM EST Appointment [facility] CT Scan [address] [place] [address] Health Maintenance Due Date Last Done Comments Colorectal Cancer Screening: Colonoscopy 1960 Hepatitis A Vaccines (1 of 2 - Risk 2-dose series) 1980 RSV Immunization Adult Patients (1 - Risk 50-74 years 1-dose series) 2011 Pneumococcal Vaccine: 50+ Years (2 of 2 - PCV) 07/20/2013 07/20/2012 Hepatitis C Screening 07/07/2022 Lung Cancer Screening (Low Dose CT) 07/07/2022 Social Influencers of Health Screening 07/07/2022 Hypertension/CHF/CAD Annual BMP Blood Test 09/02/2023 Depression Screening 08/04/2024 COVID-19 Vaccine ( season) 2025 05/29/2023, 07/23/2022, 06/26/2021, Additional history exists Influenza Vaccine (#1) 2025 9, 07/03/2017, 06/26/2015, Additional history exists Cholesterol Screening (Lipid Panel) 08/05/2029 08/05/2024 DTaP,Tdap,and Td Vaccines (5 - Td or [...] Procedure Name Priority Date/Time Associated Diagnosis Comments HC SPIROMETRY BRONCHODILATION RESPONSIVENESS PRE/POST BRONCHODILATOR ADMINISTRATION Routine 04/27/2025 11:29 AM EDT Cigarette smoker Chronic cough from Last 3 Months Results * Pulmonary function testing: Carbon Monoxide Diffusing Capacity, Plethysmography, Spirometry with Bronchodilator, Maximum Voluntary Ventilation (04/27/2025 11:29 AM EDT) Narrative Ronaldo Valencia MD - 04/28/2025 2:44 PM EDT Table formatting from the original result was not included. Images from the original result were not included. [facility] Pulmonary Lab [address] [place] [id number] Pulmonary Functions Report Date of service: 04/27/25 Patient Name: Toni Smith Date of : 1960 Age: 65 y.o. Gender: male Ordering Provider: Kathy Farley MD Diagnosis listed on Order: Chronic cough, Cigarette smoker Reason for Exam: Order Questions Answers Reason for Exam: CHRONIC COUGH IN A SMOKER, H/ SMOKING 1/2 PPD x 47YRS Which PFTs would you like to perform? Carbon Monoxide Diffusing Capacity,Plethysmography,Spirometry with Bronchodilator,Maximum Voluntary Ventilation SPIROMETRY: FEV1 is 111 % predicted and an FVC is 124 % predicted. The FEV1/FVC ratio is 92% of normal, no response to bronchodilators noted. LUNG VOLUMES: Total lung capacity (TLC): 90% predicted. Residual volume (RV): 67% predicted RV/TLC ratio is 76% of normal DIFFUSION CAPACITY: DLCO 76% predicted. DlCO/VA 74% of predicted COMPARISONS: INTERPRETATION: This pulmonary function test shows normal spirometry with mild isolated reduction diffusion capacity. The reduction in the diffusion capacity likely due to parenchymal lung disease such as ILD or emphysema from prior history of smoking. us Kathy Farley MD PFT ORDERABLES Final Res ult from Last 3 Months Insurance MEDICAID - [place] Care Teams Drywall Sander Relationship Specialty Start Date End Date Kathy Farley MD [address] [place], [place] PCP - General 10/04/22
--- OUTSIDE RECORDS SUMMARY | 2025-06-15 12:43 | XMS_ITS | Encounter Summary ---
Author Organization [employer] [facility] Address [address] [facility] [address] [place] [address] Care Team Providers Care Donor Services Coordinator Name Role Phone Kathy Farley MD Primary Care Provider [phone] Ilana Hough RN Unavailable [phone] Ilana Hough RN Unavailable [phone] Reason for Referral * Consultation (Routine) - Closed Specialty Diagnoses / Procedures Referred By Roseanna judd Referred To Contact Occupational Therapy Diagnoses Sprain of right shoulder, unspecified shoulder sprain type, initial encounter Kathy Farley MD [address] [place] [address] Phone: tel: fax: [facility] [address] Phone: tel: fax: Referral ID Status Reason Start Date Expiration Date V isits Requested Visits Authorized [id number] Closed Specialty Services Required 05/27/2024 05/27/2025 1 1 * Consultation (Routine) - Closed Specialty Diagnoses / Procedures Referred By Roseanna judd Referred To Contact Oral Surgery Diagnoses Closed fracture of nasal bone, initial encounter Closed fracture of left zygomatic arch with routine healing, subsequent encounter Kathy Farley MD [address] [place] [address] Phone: tel: fax: Referral ID Status Reason Start Date Expiration Date V isits Requested Visits Authorized [id number] Closed Specialty Services Required 05/26/2024 05/26/2025 1 1 * Consultation (Routine) - Closed Specialty Diagnoses / Procedures Referred By Roseanna judd Referred To Contact Physical Therapy Diagnoses Cerebral hemorrhage (CMS/HCC) (HCC) Post-traumatic headache, not intractable, unspecified chronicity pattern Kathy Farley MD [address] [place] [address] Phone: tel: fax: Referral ID Status Reason Start Date Expiration Date V isits Requested Visits Authorized [id number] Closed Specialty Services Required 05/26/2024 05/26/2025 1 1 * Consultation (Urgent) - Closed Specialty Diagnoses / Procedures Referred By Roseanna judd Referred To Contact Diagnoses Cerebral hemorrhage (CMS/HCC) (HCC) Post-traumatic headache, not intractable, unspecified chronicity pattern Epistaxis Kathy Farley MD [address] [place] [address] Phone: tel: fax: & Maxillofacial Surgery, Facial Cosmetic [address] [facility] [address] [place], [place] Phone: tel: fax: Referral ID Status Reason Start Date Expiration Date V isits Requested Visits Authorized [id number] Closed Specialty Services Required 05/21/2024 05/21/2025 1 1 Encounter Details Date Type Department Care Team (Late st Contact Info) Description 05/21/2024 Orders Only [facility] MED & PEDS [address] [place] [address] Kathy Farley MD [address] [place] [address] Cerebral hemorrhage (CMS/HCC) (Primary Dx); Post-traumatic headache, [...] Info) Description 07/04/2025 10:00 AM EST Telemedicine [facility] MED & PEDS [address] [place] [address] Jody Dalton, PharmD [address] [place] [address] Scheduled Referrals Name Type Priority Associated Diagnoses [...] this encounter Visit Diagnoses Diagnosis Cerebral hemorrhage (CMS/HCC) (HCC)- Primary Intracerebral hemorrhage Post-traumatic headache, not intractable, unspecified chronicity pattern Epistaxis Closed fracture of nasal bone, initial encounter Closed fracture of left zygomatic arch with routine healing, subsequent encounter Sprain of right shoulder, unspecified shoulder sprain type, initial encounter documented in this encounter Care Teams Donor Services Coordinator Relationship Specialty Start Date End Date Kathy Farley MD [address] [place] [address] PCP - General Internal Medicine 01/01/18 Ilana Hough RN [address] [place] [address] Product Safety AdministratorElectrical Development Engineer 05/04/24 09/01/24 Ilana Hough RN [address] [place] [address] Product Safety AdministratorElectrical Development Engineer 09/07/24 12/07/24 [facility] 09/18/22 documented as of this encounter
--- OUTSIDE RECORDS SUMMARY | 2025-06-15 12:43 | XMS_ITS | Encounter Summary ---
Author Organization [employer] Address [address] [facility] [address] [place] [address] Care Team Providers Care Show Worker Name Role Phone Kathy Farley MD Primary Care Provider [phone] Ilana Hough RN Unavailable [phone] Ilana Hough RN Unavailable [phone] Reason for Visit * Reason Comments Med Refill Encounter Details Date Type Department Care Team (Late st Contact Info) Description 08/15/2023 Refill [facility] MEDICINE [address] [place] [address] Kathy Farley MD [address] [place] [address] Chronic low back pain, unspecified back pain [...] Description 07/04/2025 10:00 AM EST Telemedicine [facility] MED & PEDS [address] [place] [address] Jody Dalton PharmD [address] [place] [address] documented as of this encounter Visit Diagnoses Diagnosis Chronic low back pain, unspecified back pain laterality, unspecified whether sciatica present documented in this encounter Care Teams Show Worker Relationship Specialty Start Date End Date Kathy Farley MD [address] [place] [address] PCP - General Internal Medicine 01/01/18 Ilana Hough RN [address] [place] [address] Build EngineerDirector Global Development 05/04/24 09/01/24 Ilana Hough RN [address] [place] [address] Build EngineerDirector Global Development 09/07/24 12/07/24 [facility] 09/18/22 documented as of this encounter
--- OUTSIDE RECORDS SUMMARY | 2025-06-15 12:43 | XMS_ITS | Encounter Summary ---
Author Organization [employer] Address [address] [facility] 7[address] [place] [address] Care Team Providers Care Sales Operations Assistant Name Role Phone Kathy Farley MD Primary Care Provider [phone] Ilana Hough RN Unavailable [phone] Ilana Hough RN Unavailable [phone] Reason for Visit * Reason Onset Date Comments Nurse Triage 05/08/2023 Encounter Details Date Type Department Care Team ([facility] st Contact Info) Description 05/08/2023 Telephone [facility] MED & PEDS [address] [place], [place] [phone] Kathy Farley MD [address] [place], [place] [phone] Nurse Triage Social History Tobacco Use Types [...] wants to be referred to [facility] in [place]. Will task to PCP.Pt has appt scheduled with PCP on 05/21. Pt understands and agrees with plan. * Telephone Encounter - Mely Hernandez - 05/08/2023 11:57 AM EDT Symptom: Vision [...] [facility] [address] [place] [address] Jody Dalton, PharmD [address] [place] [address] documented as of this encounter Visit Diagnoses Not on filedocumented in this encounter Care Teams Sales Operations Assistant Relationship Specialty Start Date End Date Kathy Farley MD [address] [place] [address] PCP - General Internal Medicine 01/01/18 Ilana Hough RN [address] [place] [address] Quality Assurance MonitorStream Control Officer 05/04/24 09/01/24 Ilana Hough RN [address] [place] [address] Quality Assurance MonitorStream Control Officer 09/07/24 12/07/24 [facility] 09/18/22 documented as of this encounter
--- OUTSIDE RECORDS SUMMARY | 2025-06-15 12:43 | XMS_ITS | Encounter Summary ---
Author Organization [employer] Address [address] [facility] [address] [place] [address] Care Team Providers Care Cadd Instructor Name Role Phone Kathy Farley MD Primary Care Provider [phone] Ilana Hough RN Unavailable [phone] Ilana Hough RN Unavailable [phone] Encounter Details Date Type Department Care Team (Late st Contact Info) Description 08/15/2023 Orders Only [facility] CH[facility] MED & PEDS [address] [place], [place] [phone] Kathy Farley MD [address] [place], [place] [phone] Primary hypertension (Primary Dx) Social History Tobacco [...] Description 07/04/2025 10:00 AM EST Telemedicine [facility] MED & PEDS [address] [place] [address] Jody Dalton, PharmD [address] [place], [place] [phone] documented as of this encounter Visit Diagnoses Diagnosis Primary hypertension- Primary Unspecified essential hypertension documented in this encounter Care Teams Cadd Instructor Relationship Specialty Start Date End Date Kathy Farley MD [address] [place] [address] PCP - General Internal Medicine 01/01/18 Ilana Hough RN [address] [place] [address] Beer CoolerPassenger Flagman 05/04/24 09/01/24 Ilana Hough RN [address] [place] [address] [employer] Cooler[employer]enger [employer] 09/07/24 12/07/[address] [facility] 09/18/22 documented as of this encounter
--- OUTSIDE RECORDS SUMMARY | 2025-06-15 12:43 | XMS_ITS | Encounter Summary ---
Author Organization [employer] Address [address] [facility] [address] [place] [address] Care Team Providers Care Appliance Service Representative Name Role Phone Kathy Farley MD Primary Care Provider [phone] Ilana Hough RN Unavailable [phone] Ilana Hough RN Unavailable [phone] Reason for Visit * Reason Onset Date Comments Reschedule 06/13/2023 Encounter Details Date Type Department Care Team (Late st Contact Info) Description 06/13/2023 Telephone [facility] MEDICINE [address] [place] [address] Kathy Farley MD [address] [place] [address] Reschedule Social History Tobacco Use Types Packs/Day [...] Info) Description 07/04/2025 10:00 AM EST Telemedicine [facility] MED & PEDS [address] [place] [address] Jody Dalton, PharmD [address] [place] [address] documented as of this encounter Visit Diagnoses Not on filedocumented in this encounter Care Teams Appliance Service Representative Relationship Specialty Start Date End Date Kathy Farley MD [address] [place], [place] PCP - General Internal Medicine 01/01/18 Ilana Hough RN [address] [place], [place] Sterile Instrument TechnicianProfessor Of Nursing 05/04/24 09/01/24 Ilana Hough RN [address] [place] [address] Sterile Instrument TechnicianProfessor Of Nursing 09/07/24 12/07/24 [facility] 09/18/22 documented as of this encounter
--- OUTSIDE RECORDS SUMMARY | 2025-06-15 12:43 | XMS_ITS | Encounter Summary ---
Author Organization [employer] Address [address] [facility] 7[address] [place] [address] Care Team Providers Care Auctioneer Automobile Name Role Phone Kathy Farley MD Primary Care Provider [phone] Ilana Hough RN Unavailable [phone] Ilana Hough RN Unavailable [phone] Encounter Details Date Type Department Care Team (Late st Contact Info) Description 07/11/[address] [facility] MED & PEDS [address] [place] [address] Kathy Farley MD [address] [place], [place] [phone] Injury of medial collateral ligament (MCL) of [...] Info) Description 07/04/2025 10:[address] [facility] MED & PEDS [address] [place] [address] Jody Dalton, PharmD [address] [place] [address] documented as of this encounter Visit Diagnoses Diagnosis 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ee- Primary documented in this encounter Care Teams Auctioneer Automobile Relationship Specialty Start Date End Date Kathy Farley MD [address] [place] [address] PCP - General Internal Medicine 01/01/18 Ilana Hough RN [address] [place] [address] Pipeline Superintendent DivisionEvp Strategy 05/04/24 09/01/24 Ilana Hough RN [address] [place] [address] Pipeline Superintendent DivisionEvp Strategy 09/07/24 12/07/24 [facility] 09/18/22 documented as of this encounter
--- OUTSIDE RECORDS SUMMARY | 2025-06-15 12:43 | XMS_ITS | Data Portability ---
Author Organization [facility] Matthias Batista [facility], [facility] Address [address] [place] [address] Care Team Providers Care Pull Worker Name Role Phone MARIA L CORRAL Primary Care Provider Assessment Encounter Date Assessment Date Assessment LastModified by Organization Details LastModified Time 12/31/2024 12/31/2024 Chief Complaint: Right shoulder rotator cuff tendinosis, [...] of the right shoulder dated 06/18/2024 from [facility]. Tendinosis of the distal supraspinatus with mild partial thickness insertional tearing noted. Infraspinatus, teres minor and subscapularis intact. Diffuse tendinosis versus proximal tearing of the biceps long head tendon as well as degenerative tearing of the superior labrum. Degenerative changes also noted to the anterior and posterior labrum. Cultures of the glenoid humeral joint intact with mild chondral thinning. Moderate acromioclavicular joint arthrosis. Type II acromion. He has a past history of hypertension and hyperlipidemia. Medications are listed in the medical record. No allergies to medications. Long-term chronic smoking history. Past medical, surgical, family and social history; [...] grossly intact. Eyes: Sclera are not blue. 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 Full extraocular motion. Neck: Supple with age-appropriate ROM. No tracheal deviation. No obvious JVD. Respiratory: Non-labored breathing. Symmetric excursion. No audible wheezing or crackles on auscultation. Cardiovascular: Regular rate and rhythm and normal S1 and S2. Skin: No rashes, lesions, wounds to the upper extremities. Normal turgor and coloration. Musculoskeletal: On examination of the right shoulder, there is no effusion, erythema or ecchymosis. Active shoulder elevation to 165 on the right compared 170 on the left. External rotation to 50 bilaterally. He has pain with terminal range of motion on the right side. Internal rotation to the thoracolumbar junction. 4+/5 strength resisted abduction. Positive impingement signs. Positive tenderness to light touch diffusely around the shoulder, atypical. Positive acromioclavicular joint and biceps tenderness. Impression and Plan: 64-year-old male with a now greater than 1 year history of recurrent right shoulder pain with overall history, examination and MRI consistent with right shoulder rotator cuff tendinosis versus partial thickness tearing of the supraspinatus, subacromial impingement, acromioclavicular joint arthrosis and advanced biceps tendinopathy with degenerative labral tearing. I discussed options both operative and nonoperative. I stressed the importance of activity modification with avoidance of exacerbating activities including heavy lifting overhead or lifting heavy away from the body. I discussed good lifting mechanics. I also recommended a low-dose oral anti-inflammatory such as ibuprofen [id number]-wraayps and/or Tylenol as needed. At this point, he has failed conservative treatment including rest, activity modification, oral anti-inflammatories , home exercise program and cortisone injection treatment. Therefore, recommend moving forward with right shoulder arthroscopic rotator cuff debridement versus repair, arthroscopic distal clavicle excision, arthroscopic extensive debridement, subacromial decompression with partial acromioplasty and biceps tenodesis versus tenotomy depending on intraoperative findings. I did discuss with him that his smoking status does impact his ability to heal and may impact his overall outcome. He does understand this. Anticipated recovery after shoulder decompression surgery is approximately 3-4 months. The patient will be in a sling for the first 3-5 days postop. Typically, I have patients begin physical therapy 1 week after surgery. If rotator cuff repair is necessary based upon intraoperative findings, we did discuss that this would prolong the patient's time in a sling for 6 weeks and overall anticipated recovery of 6 months with improvements up to 1 year postop. The patient does wish to proceed. Preoperative history and physical completed. All questions and concerns addressed. 1. A detailed discussion regarding the patient s pathoanatomy and treatment options, both operative and non-operative, was conducted today. 2. Given that conservative measures have failed, I recommended right shoulder arthroscopic rotator cuff debridement versus repair, arthroscopic distal clavicle excision, arthroscopic extensive debridement, subacromial decompression with partial acromioplasty and biceps tenodesis versus tenotomy depending on intraoperative findings. 2. The mechanics of the major surgery were reviewed with explanation, diagram, and review of imaging. 3. I told the patient that the goal of surgery was to improve their overall function and symptoms, but that surgery may not relieve all symptoms. I advised the patient that symptom resolution after this procedure may be protracted and incomplete. I explained that, as a result, permanent functional limitations may be recommended. 4. An appropriate timeline of recovery was outlined, and appropriate expectations were reviewed. 5. The risks and benefits of surgery, and the nonoperative alternatives, were discussed at length. Risks include, but are not limited to infection, bleeding, damage to nerves, blood vessels, muscle, tendon, bone; need for further surgery, wound healing problems, hardware related problems, non-relief of symptoms, recurrence of pathology, reinjury, chronic pain, chronic numbness, chronic weakness, loss of function, compartment syndrome, fracture, complex regional pain syndrome, joint stiffness, adhesions/scarring, arthritis or progression of arthritis, complications of anesthesia, and blood clots. 6. The patient has been educated in clear, simple language and on their own level of understanding the risks and benefits of all viable treatment options, including those of no treatment. All questions have been answered to their satisfaction. The patient has made an informed decision to proceed with surgery. 7. The patient was offered a second opinion regarding diagnosis and management of their condition and they respectfully declined. The patient was referred for a semi-rigid/rigid orthosis. The patient has weakness and instability of their extremity which requires stabilization for this semi-rigid/rigid orthosis to improve their function. Verbal and written instructions for the use and application of this item were given. Patient was instructed that should the brace result in increased pain, decreased sensation, increased swelling or an overall worsening of their medical condition, to please contact our office immediately. The patient is deemed high risk for surgery perioperatively and postoperatively given the following factors: Long-term chronic smoking status Today's visit involved examining the patient, reviewing the history, reviewing the radiographic studies, counseling the patient regarding treatment options, and the administrative tasks including placing orders, preparing patient information and home handouts and preparing the visit note. This note was generated with [employer] speech recognition billing analyst dictation software. Please excuse any errors that may have been overlooked during review of this note. Sometimes, these errors may affect the content or meaning of a given sentence. Please call for corrections. [email or web address] Not available 12/31/2024 14:15:48 03/09/2025 03/09/2025 Assessment: Iram ent presents with signs and symptoms that are consistent with shoulder SADDCE including localized pain, limitations in motion impacting functional activities involving reaching, and decreased strength for performing ADL's. Plan: Continued PT is recommended at 2x/week for 6 weeks to decrease pain, improve ROM, increase strength, and optimize shoulder mechanics for functional ADL's. [email or web address] Not available 03/10/2025 11:03:53 03/21/2025 03/21/2025 Assessment: Much improved AA/AROM in all directions. Plan: Continue with HEP stretching and formal therapy 1-2x/wk per post-op MD orders. [email or web address] Not available 03/21/2025 11:14:40 03/24/2025 03/24/2025 Assessment: Improving motions in the overhead. Plan: Continue with HEP stretching and formal therapy 1-2x/wk per post-op MD orders. [email or web address] Not available 03/24/2025 09:20:12 Plan of Treatment Reminders Order Date Submit Date Provider Last Modified By Organization Details Last Modified Time Details Appointments None recorded. Lab None recorded. Referral physical therapist referral - S/P SAD DCE Shoulder -Rt 02/16/2025 PROM, AAROM, AROM now, RC/P's strengtheni ng 4-6 weeks 2024 025 [email or web address] Not available 15:23:35 Procedures None recorded. Surgeries None recorded. Imaging None recorded. Medication Orders oxycodone 5 mg tablet 2024 025 [facility] - [place], [place] - [id number], [address] [place], [place] [address], [address], 05:01:45 Patient TargetsNo targets recorded. Patient InstructionsNo instructions recorded. Reason for Referral Physical Therapist Referral for Impingement syndrome of right shoulder region S/P SAD DCE Shoulder -Rt 02/16/2025PROM, AAROM, AROM now, RC/P's strengthening 4- 6 weeks Referring Physician: Fabiano Zee, Orthopedic Surgery, Encounter Date: 02/24/2025 Problems Name Problem SNOMED Code Status Onset Date Resolution Date Notes Provider Name and Address Organization Details Recorded Time No complaints [id number] Active Status : 'A'; Not Available [facility] 4 09:11:04 Pain of right shoulder joint 1696426282430 9100 Active 2023 Jessica Jara PA-C [address], [place], [address] , [facility] 4 20:58:08 Injury of tendon of the rotator cuff of shoulder 999282710 Active 2023 Jessica Jara PA-C [address], [place], [address] , [facility] 4 12:45:32 Osteoarthr itis of left knee joint 1511306238481 09 Active 2023 STEVEN rashid [facility] 4 15:34:11 Nontraumat ic partial rupture of right rotator cuff 8394597148631 109 Active 2024 Yunier Luna PA-C [address], [place], [address] , [facility] 5 08:04:26 Tendinitis of right biceps brachii Active 2024 Jessica Crocker PA-C [address], [place], [address] , [facility] 5 16:59:04 Tendinosis of right biceps brachii 0727949661434 9101 Active 2024 Yunier Luna PA-C [address], [place], [address] , [facility] 5 08:04:35 Impingemen t syndrome of right shoulder region 0472081654238 02 Active 2024 DANITA rashid [facility] 5 15:21:05 Problem Notes None recorded. Procedures Surgical History Date Name Laterality Status Provider Name and Address Organization Details Recorded Time 03/24/20 25 18777 Therapeutic Exercise (1:1) completed Willian Antonio AT [address], [place], [address], [facility] 03/24/2025 08:58:09 03/24/20 25 46534: Hot or Cold Pack completed Willian Antonio AT [address], [place], [address], [facility] 03/24/2025 08:58:09 03/24/20 25 01971: Manual therapy completed Willian Antonio AT [address], [place], [address], [facility] 03/24/2025 08:58:09 03/21/20 25 66433 Therapeutic Exercise (1:1) completed Willian Antonio, AT [address], [place], [address], [facility] 03/21/2025 11:11:12 03/21/20 25 20469: Hot or Cold Pack completed Willian Antonio, AT [address], [place], [address], [facility] 03/21/2025 11:11:20 03/21/20 25 72943: Manual therapy completed Willian Antonio, AT [address], [place], [address], [facility] 03/21/2025 11:11:08 03/09/20 25 31945 Therapeutic Exercise (1:1) completed Israel Guerra DPT [address], [place], [address], [facility] 03/10/2025 11:11:29 03/09/20 25 71284: Low complexity PT Eval completed Israel Guerra DPT [address], [place], [address], [facility] 03/10/2025 11:11:56 02/25/20 25 SHOULDER ARTHROSCOPY WITH ACROMIOPLASTY, DISTAL CLAVICLE RESECTION, & ROTATOR CUFF REPAIR (SURG) completed Not Available [facility] 03/09/2025 09:34:45 12/16/19 25 Sports Shoulder completed Yunier Luna PA-C [address], [place], [address], [facility] 12/22/2024 08:04:13 10/16/19 25 JZHip Inj completed Catalino Graham PA-C [address], [place], [address], [facility] 10/15/2024 12:17:05 09/17/19 25 Sports Shoulder completed Paul Evans MD [address], [place], [address], [facility] 09/17/2024 09:54:27 06/11/20 24 Sports Shoulder completed Jessica Jara PA-C [address], [place], [address], [facility] 06/11/2024 15:33:40 06/03/20 24 Sports Knee 4&1 completed Catalino Graham PA-C [address], [place], [address], [facility] 06/03/2024 13:05:34 01/02/20 24 Trigger Finger Kenalog Injection completed Doreen Badillo PA-C [address], [place], [address], [facility] 01/02/2024 11:56:44 Imaging Results None recorded. Procedure [...] TAKE 1 TABLET BY MOUTH ONCE DAILY AFTER MEALS active Not Available Not Available No t Available naltrexone 50 mg tablet TAKE 1 TABLET BY MOUTH ONCE DAILY NEEDED FOR cravings OF alcohol. discontin ue acamprosa te active Not Available Not Available No t Available prednisone 20 mg tablet TAKE 1 TABLET BY MOUTH ONCE DAILY FOR 5 DAYS 09/08 completed Not Available Not Available Not Available acetaminoph en 300 mg-codeine 30 mg tablet TAKE ONE TABLET EVERY 6 HOURS NEEDED FOR SEVERE PAIN active Not Available Not Available No t Available amlodipine 5 mg tablet TAKE 1 [...] Not Available Not Available No t Available acetaminoph en 500 mg tablet TAKE 2 TABLETS BY MOUTH EVERY 8 HOURS NEEDED FOR moderate PAIN FOR UP TO 10 DAYS active Not Available Not Available No t Available Ear Wax Removal Drops 6.5 % PLACE FIVE TO 10 DROPS IN AFFECTED EAR(S) TWICE DAILY FOR FOUR DAYS active Not Available Not Available No t Available pantoprazol e 40 mg tablet,nirav yed release TAKE 1 TABLET BY MOUTH ONCE DAILY active Not Available Not Available No t Available lidocaine 5 % topical patch APPLY 1 PATCH BY TOPICAL ROUTE ONCE DAILY (MAY WEAR UP TO 12HOURS.) active Not Available Not Available No t [...] completed Not Available Not Available Not Available zolpidem 10 mg tablet TAKE 1 TABLET BY MOUTH AT BEDTIME AT 10 IN THE EVENING FOR SLEEP active Not Available Not Available [...] mg tablet TAKE 1 TABLET BY MOUTH two (2) times a day FOR 7 DAYS active Not Available Not Available No [...] Available Not Available oxycodone 5 mg tablet Take 1 tablet every 4 hours by oral route for 7 days. 03/11 completed Not Available Not Available Not Available Siltussin-D M 10 mg-100 mg/5 mL [...] Available duloxetine 60 mg capsule,del ayed release Take 1 capsule by mouth twice a day active Not Available Not Available No t Available Seroquel SEROquel 300MG Tablet 07/17 completed Statu s: 'Disc ontin ued'; Not Available Not Available Not Available varenicline tartrate 0.5 mg tablet TAKE 1 TABLET BY MOUTH EVERY MORNING FOR 3 DAYS, THEN 1 TABLET two (2) times a day FOR 4 DAYS; THEN 2 TABLETS two (2) times a day THEREAFTE R active Not Available Not Available No t Available quetiapine 50 mg tablet TAKE 1 TABLET BY MOUTH AT BEDTIME 01/08 completed Not Available Not Available Not Available diclofenac 1 % topical gel APPLY 2 grams TOPICALLY two (2) times a day active Not Available Not Available No t Available Willycatalinaharriet Bar [facility] spacer USE as instructe d active Not Available Not Available No t Available Diclo Gel 1 % topical kit Apply small amount to area tid prn pain 2023 active Not Available Not Available Not Avai lable Vitals Date Recorded Body height Body mass index (BMI) Body weight Heart rate Body temperature Oxygen saturation Oxygen saturation in Arterial blood by Pulse oximetry Systolic And Diastolic Provider Name and Address Organization Details Last Updated DateTime 162.56 cm 24 kg/m2 36901.9 3 g 96 /min 98.7 [degF] 98 % 98 % 122/78 mm[Hg] Gee Hartley [facility] 14:25:04 Date Recorded Body height Body mass index (BMI) Body weight Body temperature Provider Name and Address Organization Details Last Updated DateTime 02/24/2025 162.56 cm 24 kg/m2 33735.93 g 98.6 [degF] DANITA DEL CASTILLO [facility] 02/24/2025 15:20:55 Social History Question Answer Notes LastModified by [employer] Provider [employer] Details LastModified Time Tobacco Smoking Status Current Every [facility] 01/09/2024 10:46:36 Which Of Your Hands Is Dominant? Right Information not available 01/09/2024 Have You Ever Been Counseled For Unhealthy Alcohol Use? No Information not available 01/09/2024 How Much Tobacco Do You Smoke? 0.5 PPD [email or web address] Information not available 01/09/2024 Sex: Unknown Functional Status Question Answer Note LastModified by [employer] ion Details LastModified Time How many times per week do you consume alcohol? 3-4 times per week Information not available 01/09/2024 Do you use any illicit or recreational drugs? No [email or web address] Information not available 01/09/2024 Do you or have you ever used any other forms of tobacco or nicotine? Yes Information not available 01/09/2024 What is your level of alcohol consumption? Occasional Information not available 01/09/2024 Mental Status None recorded. Family History Nothing Reported. Medical History Condition Response Coronary Artery Disease N Anxiety/Depression Y Emphysema N COPD N Pacemaker N Vascular Disease N Heart Trouble N Gastrointestinal Disease N Autoimmune disease N Inflammatory Joint disease N Orthotics N Arthritis N Blood Clot N Acid Reflux (GERD) Y Cancer N Stroke N Circulation Problems N Rheumatoid Arthritis N Arrhythmia N Headaches N Fibromyalgia N Allergies/Hayfever N Breathing or lung disorders N Nerve Disorders N Thyroid Problems N Kidney/Bladder Problems N Anemia N Heart Attack (MD) N Cholesterol Y Diabetes N Bleeding Disorder N Seizures/Epilepsy N AIDS/HIV N Congestive Heart Failure (CHF) N Asthma N Peripheral Vascular Disease N Sleep Apnea N Hepatitis N Heart Disease N Pulmonary Embolism N Hypertension Y Osteoporosis N Past Encounters Encounter ID Performer Location Encounter Start Date Encounter Closed Date Diagnosis/Indication Diagnosis SNOMED-CT Code Diagnosis ICD10 Code Diagnosis IMO Codes Diagnosis Note [id number] MARC Brady [address] [place] [address] 01/02/2024 10:16:51 02/03/2024 08:22:34 Pain of right hand 4363032522 49381 M79.078 [id number] MARC Albarado [address] [place] [address] 01/09/2024 10:07:52 01/28/2024 10:07:41 Pain of right shoulder joint 2286073449 3587362 M25.511 Injury of tendon of the rotator cuff of shoulder 784239489 S46.001A [id number] MARC Smith [address] [place] [address] 03/20/2024 07:37:02 04/14/2024 09:31:10 Pain of left knee joint 7822782725 48636 M25.562 Osteoarthr itis of left knee joint 7369247888 44290 M17.12 [id number] MARC Smith [address] [place] [address] 06/03/2024 12:42:57 06/25/2024 13:50:57 Osteoarthritis of left knee joint 8126463438 74219 M17.12 [id number] MARC Albarado [address] [place] [address] 06/11/2024 14:47:14 06/30/2024 09:48:28 Pain of right shoulder joint 7232089759 6665120 M25.603 [id number] Jessica Crocker PA-C [facility] [address] [place] [address] 09/03/2024 14:44:46 09/22/2024 09:27:17 Nontraumatic partial rupture of right rotator cuff 3080106192 415604 M75.372 5206930 Tendinitis of right biceps brachii 2205378283 7107 M67.921 [id number] MD [facility] [address] [place] [address] 09/17/2024 08:45:50 10/05/2024 15:41:00 Subacromial impingement 608343178 M75.41 12239144 Tendinosis of right shoulder 5689000481 5895794 M67.813 [id number] [id number] MARC Smith [address] [place] [address] 10/15/2024 09:07:27 10/29/2024 09:02:58 Osteoarthritis of left knee joint 2272926434 45546 M17.12 Trochanter ic bursitis of left hip 2105390273 76582 M70.62 [id number] MARC Perez [address] [place] [address] 12/15/2024 09:10:24 01/03/2025 10:24:14 Nontraumatic partial rupture of right rotator cuff 5481502857 992866 M75.111 [id number] Tendinosis of right biceps brachii 6524410493 4334645 M67.88 [id number] Paul Evans MD [facility] [address] [place] [address] 12/31/2024 13:26:21 01/12/2025 13:46:43 Right rotator cuff syndrome 6388150312 43473 M75.168 7095289 Partial th ickness rotator cuff tear 347704465 M75.111 9974347891 Impingemen t syndrome of right shoulder region 1325985417 80006 M75.41 [id number] MD [facility] Ge [facility] [address] [place] [address] 02/24/2025 14:32:22 03/07/2025 15:23:35 Pain of right shoulder joint 2728091601 4682073 M25.511 Impingemen t syndrome of right shoulder region 0536571417 99298 M75.41 [id number] Israel Guerra , DPT [facility] [address] [place] [address] 03/09/2025 08:36:00 03/09/2025 09:58:22 Impingement syndrome of right shoulder region 1566082580 74621 M75.41 [id number] Willian Antonio, [facility] [address] [place] [address] 03/21/2025 10:35:50 03/21/2025 11:51:14 Impingement syndrome of right shoulder region 3380343352 96600 M75.41 [id number] Willian Antonio, AT [facility] [address] [place] [address] 03/24/2025 08:28:53 03/24/2025 09:27:12 Impingement syndrome of right shoulder region 4521487832 54396 M75.41 Health Concerns Section Related Observation LastModified by Organization Detai ls LastModified Time None Recorded Concern Status LastModified by Organization Details LastModified Time None Recorded Advance Directives Directive None Recorded Payers Insurance Date Sequence Insurance Name Policy Number Policy Cihng Covered Member ID Ching Member ID Guarantor Name 05/27/2025 1 [place] [facility] Mukesh Denton [id number] Mukesh Denton Notes Date Note Type Note Provider Name and Address Organization Details Recorded Time 02/24/2025 text/html Surgery: Right SAD/DCE Interval History: Patient today for initial postoperative visit, patient has weaned from the sling, following postoperative instructions given at the surgery center. Past family, medical, social history and review of systems have been reviewed and updated on the medical history sheet saved to the patient's chart. A 12-point review of systems is negative x12 except as noted above and/or on the medical history sheet. Examination: Shoulder demonstrates well-healed incision, sutures removed, Steri-Strips applied, normal deltoid sensation, neurovascular status normal. Impression: s/p Shoulder surgery outlined above Plan: Recommendations made to continue following postoperative instructions, continued daily pendulum related exercises. Patient was given postoperative instruction to begin active assist range of motion, we will initiate formal outpatient physical therapy this week. Stressed importance of scapular posture while doing his exercises, when range of motion is full begin light resistive strengthening exercises at 8 weeks postoperatively. Patient was scheduled for routine follow-up care in 7 weeks time to assess progress. Fabiano Zee MD [address], [place], [address], [facility] 02/24/2025 15:34:55 03/09/2025 text/html Patient is 64 year old male with history of shoulder pain, presenting today s/p SADDCE. Reports mild pain symptoms and is taking pain medication as needed to control symptoms. Appears to be weaning out of sling at this time. Current vocational status is. n/a. Functional limitations include difficulty sleeping, limited shoulder ROM, and difficulty performing independent ADL's such as reaching and lifting. Patient goal is to restore function and move R UE w/o pain. Israel Guerra DPT [address], [place], [address], [facility] 03/10/2025 11:13:31 03/21/2025 text/html Reports difficulty sleeping at night. Pains 3/10 but using the arm much better. Willian Antonio, AT [address], [place], [address], [facility] 03/21/2025 11:34:00 03/24/2025 text/html Patient presents today reporting 3/10 pain. Willian Antonio, AT [address], [place], [address], [facility] - [facility] 03/24/2025 09:20:45
--- OUTSIDE RECORDS SUMMARY | 2025-06-15 12:43 | XMS_ITS | Encounter Summary ---
Author Organization [employer] Address [address] [place] [address] Care Team Providers Care Body Line Finisher Name Role Phone Kathy Farley MD Primary Care Provider [phone] Ilana Hough RN Unavailable [phone] Ilana Hough RN Unavailable [phone] Reason for Visit * Reason Onset Date Comments Med Refill 08/14/2023 Encounter Details Date Type Department Care Team ([facility] st Contact Info) Description 08/14/2023 Telephone [facility] MED & PEDS [address] [place] [address] Kathy Farley MD [address] [place] [address] Med Refill Social History Tobacco Use Types [...] 600 MG tablet To be sent to: [facility] - [place], [place] - [id number] - [place] - [address] documented in this encounter Plan of Treatment Upcoming Encounters Date Type Department Care Team (Late st Contact Info) Description 07/04/2025 10:00 AM EST Telemedicine [facility] [address] [place] [address] Jody Dalton, PharmD [address] [place] [address] documented as of this encounter Visit Diagnoses Not on filedocumented in this encounter Care Teams Body Line Finisher Relationship Specialty Start Date End Date Kathy Farley MD [address] [place] [address] PCP - General Internal Medicine 01/01/18 Ilana Hough, DUNG [address] [facility] [place] [address] Assistant Sales DirectorManager Cash 05/04/24 09/01/24 Ilana Hough RN [address] [facility] [place] [address] Assistant Sales DirectorManager Cash 09/07/24 12/07/24 [facility] 09/18/22 documented as of this encounter
[2025-06-15 14:03] LABS: MANUAL DIFF FLAG NO
[2025-06-15 14:04] LABS: Hematocrit 50.5 % (42.0-52.0); Hemoglobin 17.6 g/dl (14.0-18.0); Imm Gran Abs Auto 0.03 X10*3/uL (0.00-0.03); Imm Gran Pct Auto 0.3 % (0.0-0.4); Lymphocytes Absolute Auto 3.4 X10*3/uL (1.2-4.9); Mean Corpuscular HGB Conc 34.9 g/dl (31.0-36.0); Mean Corpuscular Hemoglobin 32.8 pg (27.0-33.0); Mean Corpuscular Volume 94.0 fL (80.0-98.0); NRBC Abs Auto 0.000 X10*3/uL (0.0-0.012); NRBC Pct Auto 0.0 /100WBC (0.0-0.2); Platelet Count 369 X10*3/uL (160-400); Red Blood Count 5.37 X10*6/uL (4.60-5.80); White Blood Count 8.8 X10*3/uL (4.8-10.8)
[2025-06-15 14:43] LABS: Alanine Aminotransferase 28 U/L (0-40); Albumin Level 4.5 g/dL (3.5-5.0); Alkaline Phosphatase 80 U/L (39-117); Anion Gap 11 (12-20); Aspartate Amino Transferase 31 U/L (5-37); Blood Urea Nitrogen 7 mg/dL (9-16); Calcium 9.5 mg/dL (8.4-10.2); Carbon Dioxide 27 mmol/L (22-29); Chloride 103 mmol/L (96-108); Cholesterol 243 mg/dL (<200); Estimated Glomerular Filt Rate > 60; HDL Cholesterol 48 mg/dL (>40); Potassium 4.1 mmol/L (3.3-5.1); Sodium 137 mmol/L (135-145); Total Protein 7.9 g/dL (6.5-8.0); Triglycerides 304 mg/dL (<150)
[2025-06-15 14:43] LABS: Appearance Urine Clear; Glucose Urine UA Negative (Negative); PH 6.0 (5.0-9.0); Specific Gravity - Urine 1.010 (1.005-1.025)
[2025-06-15 15:05] LABS: Folate 10.4 ng/mL (> or = 4.0); Vitamin B12 240 pg/mL (200-900)
[2025-06-16 04:06] LABS: HIV Num 1 0.07 S/CO (0.00-0.99); ~HepC Num1 6.04 S/CO (0.00-0.79); ~Hepatitis C Antibody Reactive (Nonreactive)
[2025-06-18 13:18] LABS: HCV Log PCR <1.18 NOT DETECTED Log IU/mL (NOT DETECTED); HepC Viral Load <15 NOT DETECTED IU/mL (NOT DETECTED)
== END 2025-06-15 10:36 | disposition home or self-care (01) ==
LOC: HO.CHCLDS 10:35
PROVIDERS: Visit Provider Internal Medicine
DX: Z11.3 Encounter for screening for infections with a predominantly sexual mode of transmission (principal); Z11.59 Encounter for screening for other viral diseases; Z11.4 Encounter for screening for human immunodeficiency virus [HIV]; R41.3 Other amnesia; Z20.6 Contact with and (suspected) exposure to human immunodeficiency virus [HIV]
CPT/HCPCS: 36415; 80053; 80061; 81003; 82607; 82746; 84443; 85025; 86592; 86803; 87389; 87522